=== PATIENT | female | born 2000 ===

== ENCOUNTER 2021-06-04 02:54 | Emergency (ER) | payer MEDICAID, SELFPAY ==
--- NOTE | ~2021-06-04 | XR_ITS ---
EXAMINATION: XR CHEST CLINICAL INFORMATION: Shortness of breath COMPARISON: None TECHNIQUE: Frontal view of the chest was obtained. FINDINGS: Cardiac leads overlie the chest. The lungs are well expanded. There is no focal consolidation, edema, or effusion. No pneumothorax. The cardiomediastinal silhouette is within normal limits. No acute osseous abnormality. XR/XR chest 1V IMPRESSION: Clear lungs.
[2021-06-04 03:11] VITALS: BP 155/100; PULSE 105; RESP 22; TEMP 36.3; O2SAT 92; BMI 29.2
[2021-06-04] MEDS: Albuterol Sulfate (0.083%) 2.5 MG/3 ML VIAL.NEB 7.5 MG INHALE (05:08)
[2021-06-04] MEDS: Albuterol/Iprat 2.5/0.5MG 3 ML AMPUL.NEB INHALE (05:09)
[2021-06-04 05:11] VITALS: BP 124/80; PULSE 105; PULSE 106; RESP 16; RESP 20; O2SAT 95
[2021-06-04 05:31] LABS: COVID-19 Test Negative (Negative); IDNOW Serial# 9DD0AD1C
--- NOTE | 2021-06-04 05:51 | ED_ITS ---
HPI - SOB/Dyspnea General Chief Complaint: Dyspnea Stated Complaint: SoB, cannot breathe Time Seen by Provider: 06/04/21 05:02 Source: patient Mode of arrival: ambulatory Limitations: no limitations History of Present Illness HPI Narrative: Patient not vaccinated against COVID with history of asthma been sick for last 1 week using inhaler and nebulizing treatment at home without much relief coughing with mucopurulent expectoration no fever no chills no other family member sick patient was saturating 92% at room air on arrival Related Data Previous Rx's Medication Instructions Recorded albuterol sulfate 2.5 mg (3 mL) INHALATION Q4-6H PRN 06/04/21 #90 ml albuterol sulfate 90 mcg/actuation 2 puff INHALATION Q4-6H PRN #8.5 g 06/04/21 aerosol inhaler (ProAir HFA) prednisone 20 mg tablet 40 mg PO DAILY #10 tab 06/04/21 Allergies Allergy/AdvReac Type Severity Reaction Status Date / Time No Known Allergies Allergy Unverified 03/02/20 17:11 Review of Systems Review of Systems: Yes all other systems are reviewed and are negative [facility] Social History Social History Advance Directives: No Advance Directives Information Provided: Yes Physical Exam Vital Signs: Vital Signs: Last Vital Signs Temp 97.4 F 06/04/21 03:11 Pulse 105 H 06/04/21 05:11 Resp 16 06/04/21 05:11 BP 124/80 06/04/21 05:11 Pulse Ox 95 06/04/21 05:11 BMI result Body Mass Index 29.2 Appearance: Alert. Oriented X3. No acute distress. Eyes: No pallor ENT: Pharynx normal. Oral Mucosa moist Neck: Normal inspection. Neck supple. CVS: Normal heart rate and rhythm. Pulses normal. Respiratory: Moderate respiratory distress. Equal air entry bilateral, bilateral wheezing and rhonchi no rales using accessory respiratory muscles Abdomen: Soft and nontender. Skin: Skin warm and dry. Normal skin color. Normal skin turgor. Extremities: No lower extremity edema. No calf tenderness Neuro: Oriented X 3. MDM - SOB/Dyspnea MDM Narrative Medical decision making narrative: Patient with asthma received continues treatment steroids saturating 97% at room air will give another treatment and discharge patient home. Chest x-ray negative COVID negative Lab Data Attestation: I reviewed the patient's lab results. Result diagrams: 06/04/21 Unknown 06/04/21 Unknown Labs: Lab Results 06/04/21 06/04/21 06/04/21 Range/Units 05:11 Unknown Unknown WBC 9.6 (4.8-10.8) X10*3/uL RBC 4.75 (4.20-5.50) X10*6/uL Hgb 14.6 (12.0-16.0) g/dl Hct 42.3 (37.0-47.0) % MCV 89.1 (80.0-98.0) fL MCH 30.7 (27.0-33.0) pg MCHC 34.5 (31.0-35.0) g/dl RDW 11.8 (11.0-16.0) % Plt Count 322 (160-400) X10*3/uL MPV 8.5 L (9.4-12.3) fL Immature Gran % (Auto) 0.3 (0.0-0.4) % Neut % (Auto) 62.7 (45-73) % Lymph % (Auto) 20.2 (20-40) % [place] % (Auto) 9.1 (2-11) % Eos % (Auto) 7.4 H (0-4) % Baso % (Auto) 0.3 (0-2) % Lymph # (Auto) 1.9 (1.2-4.9) X10*3/uL [place] # (Auto) 0.9 (0.1-1.2) X10*3/uL Eos # (Auto) 0.7 H (0.0-0.4) X10*3/uL Baso # (Auto) 0.0 (0.0-0.2) X10*3/uL Abs Immat Gran (auto) 0.03 (0.00-0.03) X10*3/uL Absolute Neuts (auto) 6.0 (2.0-8.3) x10*3/uL Absolute Nucleated RBC 0.000 (0.0-0.012) X10*3/uL Nucleated RBC % (auto) 0.0 (0.0-0.2) /100WBC Sodium 140 (135-145) mmol/L Potassium 4.0 (3.3-5.1) mmol/L Chloride 106 (96-108) mmol/L Carbon Dioxide 24 (22-29) mmol/L Anion Gap 14 (12-20) BUN 6 L (9-16) mg/dL Creatinine 0.67 (0.5-1.4) mg/dL Estim Creat Clear Calc 116.2 Estimated GFR > 60 Random Glucose 104 (60-115) mg/dL Calcium 9.8 (8.4-10.2) mg/dL COVID-19 (IMELDA) Negative (Negative) COVID-19 Clin Com See Note Discharge Plan Discharge Clinical Impression: Asthma with exacerbation Qualifiers: Asthma severity: moderate Asthma persistence: persistent Qualified Code(s): J45.41 - Moderate persistent asthma with (acute) exacerbation Patient Disposition: Home, Self-Care Instructions: Asthma (ED) Additional Instructions: Continue to use nebulizing treatment/inhaler every 4-6 hours prednisone as advised Follow with PCP if not better Prescriptions: New prednisone 20 mg tablet 40 mg PO DAILY Qty: 10 RF: 0 albuterol sulfate [ProAir HFA] 90 mcg/actuation HFA aerosol inhaler 2 puff inhalation Q4-6H PRN (Reason: Wheezing) Qty: 8.5 RF: 0 albuterol sulfate 2.5 mg /3 mL (0.083 %) solution for nebulization 2.5 mg inhalation Q4-6H PRN (Reason: shortness of breath or wheezing) Qty: 90 RF: 0
[2021-06-04 06:11] LABS: Basophils Percent Auto 0.3 % (0-2); Eosinophils Absolute Auto 0.7 X10*3/uL (0.0-0.4); Eosinophils Percent Auto 7.4 % (0-4); Hematocrit 42.3 % (37.0-47.0); Hemoglobin 14.6 g/dl (12.0-16.0); Imm Gran Abs Auto 0.03 X10*3/uL (0.00-0.03); Imm Gran Pct Auto 0.3 % (0.0-0.4); Lymphocytes Absolute Auto 1.9 X10*3/uL (1.2-4.9); Lymphocytes Percent Auto 20.2 % (20-40); MANUAL DIFF FLAG NO; Mean Corpuscular HGB Conc 34.5 g/dl (31.0-35.0); Mean Corpuscular Hemoglobin 30.7 pg (27.0-33.0); Mean Corpuscular Volume 89.1 fL (80.0-98.0); Mean Platelet Volume 8.5 fL (9.4-12.3); Monocytes Absolute Auto 0.9 X10*3/uL (0.1-1.2); Monocytes Percent Auto 9.1 % (2-11); Neutrophils Percent Auto 62.7 % (45-73); Platelet Count 322 X10*3/uL (160-400); Red Blood Count 4.75 X10*6/uL (4.20-5.50); Red Cell Distribution Width 11.8 % (11.0-16.0); White Blood Count 9.6 X10*3/uL (4.8-10.8)
[2021-06-04] MEDS: dexAMETHasone sod phosphate 10 MG/ML VIAL IVPUSH (06:15)
[2021-06-04] MEDS: Magnesium Sulfate/H2O 2 GM/50 ML PIGGYBACK IV (06:15)
[2021-06-04 06:29] LABS: Anion Gap 14 (12-20); Blood Urea Nitrogen 6 mg/dL (9-16); Calcium 9.8 mg/dL (8.4-10.2); Carbon Dioxide 24 mmol/L (22-29); Chloride 106 mmol/L (96-108); Creatinine Clr Calc Pharmacy 116.2; Estimated Glomerular Filt Rate > 60; Glucose Random 104 mg/dL (60-115); Sodium 140 mmol/L (135-145)
[2021-06-04] MEDS: Albuterol Sulfate (0.083%) 2.5 MG/3 ML VIAL.NEB 5 MG INHALE (07:24)
[2021-06-04 07:27] VITALS: PULSE 102; RESP 16; O2SAT 97
[2021-06-04 07:46] VITALS: BP 118/84; PULSE 109; RESP 18; TEMP 36.7; O2SAT 94
== END 2021-06-04 08:04 | disposition home or self-care (01) ==
PROVIDERS: Emergency Provider Internal Medicine
DX: J45.41 Moderate persistent asthma with (acute) exacerbation (principal); Z20.822 Contact with and (suspected) exposure to COVID-19; F17.200 Nicotine dependence, unspecified, uncomplicated
CPT/HCPCS: 36415; 71045; 80048; 85025; 87635; 94640; 94644; 96365; 96375; 99284; 99285; J1100; J3475

== ENCOUNTER 2021-06-05 04:00 | Inpatient (IN) | payer MEDICAID, SELFPAY ==
[2021-06-05] VITALS (10 sets, daily range): BP systolic 122; BP diastolic 89; PULSE 86–119; RESP 18–28; TEMP 36.9; O2SAT 85–98; BMI 29.2
--- NOTE | ~2021-06-05 | XR_ITS ---
EXAMINATION: XR CHEST CLINICAL INFORMATION: Dyspnea COMPARISON: Previous chest x-ray from yesterday TECHNIQUE: Frontal view of the chest was obtained. FINDINGS: The cardiac and mediastinal contours are stable. The lungs are well inflated. There is question of increased central bronchial markings/bronchial wall thickening. No evidence of a lobar pneumonia is seen. There is no pleural effusion or pneumothorax. Bony structures are normal. XR/XR chest 1V IMPRESSION: Well-inflated lungs and question increased central bronchial markings/bronchial wall thickening. No evidence of a lobar pneumonia.
[2021-06-05 05:17] LABS: COVID-19 Test Positive (Negative)
--- NOTE | 2021-06-05 06:35 | ED_ITS ---
HPI - SOB/Dyspnea General Chief Complaint: Dyspnea Stated Complaint: Asthma Time Seen by Provider: 06/05/21 06:34 Source: patient and old records reviewed Mode of arrival: ambulatory Limitations: no limitations History of Present Illness MD elicited complaint: shortness of breath and asthma attack Pertinent past history: other (COVID exposure not vaccinated here last night given IV steroids around 2am neg CXR neg COVID sent home) Onset (ago): week(s) (1) Timing: progressively worsening Severity: moderate Exacerbating factors: exertion and coughing Relieving factors: rest and bronchodilators Associated symptoms: cough Treatment prior to arrival: bronchodilator Related Data Home Medications Medication Instructions Recorded Confirmed ascorbic acid (vitamin C) 500 mg 500 mg PO DAILY 06/05/21 06/05/21 tablet (Vitamin C) elderberry fruit 200 mg capsule 200 mg PO DAILY 06/05/21 06/05/21 Previous Rx's Medication Instructions Recorded albuterol sulfate 2.5 mg (3 mL) INHALATION Q4-6H PRN 06/04/21 #90 ml albuterol sulfate 90 mcg/actuation 2 puff INHALATION Q4-6H PRN #8.5 g 06/04/21 aerosol inhaler (ProAir HFA) Allergies Allergy/AdvReac Type Severity Reaction Status Date / Time No Known Allergies Allergy Unverified 03/02/20 17:11 Review of Systems Review of Systems: Constitutional : No Fever, No Chills ENT/Mouth : No Hoarseness, No sore throat, No Rhinorrhea Eyes: No Redness, No Discharge, No Vision Changes Cardiovascular : No Chest Pain, positive SOB, positive Dyspnea on Exertion, No Edema Respiratory : positive Cough, No Sputum, positive Wheezing, Gastrointestinal : No Nausea, No Vomiting, No Diarrhea, No abdominal Pain Genitourinary : No Dysuria, No Hematuria Musculoskeletal : No joint pain, No Myalgias Skin : No rash Neuro : No Weakness, No Numbness, No Headache Psych : No anxiety, depression Heme/Lymph: No Bruising, No Bleeding Endocrine : No Polyuria, No Polydipsia All other systems reviewed and are negative PMFSH Past Medical History Medical History (Updated 06/05/21 @ 11:29 by Brennen Mcdermott MD) Asthma Surgical History (Updated 06/05/21 @ 11:24 by Brennen Mcdermott MD) No pertinent past surgical history Social History Social History (Updated 06/05/21 @ 11:24 by Brennen Mcdermott MD) Alcohol intake: never Patient Tobacco Use Status: Current someday Tobacco user Use of substances other than those prescribed or required for medical reasons: No Advance Directives: No Advance Directives Information Provided: No Physical Exam Vital Signs: Vital Signs: Last Vital Signs Temp 98.5 F 06/05/21 04:16 Pulse 86 06/05/21 12:13 Resp 18 06/05/21 12:13 BP 122/89 06/05/21 04:16 Pulse Ox 95 06/05/21 12:18 BMI result Body Mass Index 29.2 Appearance: Alert. Oriented X3. Mild acute distress. Eyes: Pupils equal, round and reactive to light. ENT: Pharynx normal. Neck: Normal inspection. Neck supple. CVS: Normal heart rate and rhythm. Pulses normal. Respiratory: Mild respiratory distress - retractions and tachypnea. Breath sounds diffuse wheezing noted - marched in place 93% on RA while walking in room Abdomen: Soft and nontender. Skin: Skin warm and dry. Normal skin color. Normal skin turgor. Extremities: No lower extremity edema. No calf ttp Neuro: Oriented X 3. No motor deficit. No sensory deficit. Course Course Course Narrative: ambulatory trial patient desaturated to 85% responded to 3L NC - up to 94% added on additional labs, planned admit for COVID asthma hypoxia MDM - SOB/Dyspnea MDM Narrative Medical decision making narrative: 20 yo female here with c/o 1 week of asthma attack she is not vaccinated had COVID exposure given IV steroids at 2am at this time will repeat labs, CXR, she is now COVID +, 5mg neb will obtain walking repeat O2 sat for the patient, dispo per results and O2 sat Lab Data Result diagrams: 06/05/21 08:03 06/05/21 08:03 Labs: Lab Results 06/05/21 06/05/21 06/05/21 Range/Units 05:02 08:03 08:03 WBC 11.7 H (4.8-10.8) X10*3/uL RBC 4.98 (4.20-5.50) X10*6/uL Hgb 15.0 (12.0-16.0) g/dl Hct 44.4 (37.0-47.0) % MCV 89.2 (80.0-98.0) fL MCH 30.1 (27.0-33.0) pg MCHC 33.8 (31.0-35.0) g/dl RDW 12.1 (11.0-16.0) % Plt Count 363 (160-400) X10*3/uL MPV 8.6 L (9.4-12.3) fL Immature Gran % (Auto) 0.3 (0.0-0.4) % Neut % (Auto) 67.4 (45-73) % Lymph % (Auto) 21.7 (20-40) % [place] % (Auto) 9.5 (2-11) % Eos % (Auto) 0.9 (0-4) % Baso % (Auto) 0.2 (0-2) % Lymph # (Auto) 2.5 (1.2-4.9) X10*3/uL [place] # (Auto) 1.1 (0.1-1.2) X10*3/uL Eos # (Auto) 0.1 (0.0-0.4) X10*3/uL Baso # (Auto) 0.0 (0.0-0.2) X10*3/uL Abs Immat Gran (auto) 0.04 H (0.00-0.03) X10*3/uL Absolute Neuts (auto) 7.9 (2.0-8.3) x10*3/uL Absolute Nucleated RBC 0.000 (0.0-0.012) X10*3/uL Nucleated RBC % (auto) 0.0 (0.0-0.2) /100WBC D-Dimer High Sensitivty NG/ML Sodium 142 (135-145) mmol/L Potassium 4.1 (3.3-5.1) mmol/L Chloride 106 (96-108) mmol/L Carbon Dioxide 26 (22-29) mmol/L Anion Gap 14 (12-20) BUN 8 L (9-16) mg/dL Creatinine 0.66 (0.5-1.4) mg/dL Estim Creat Clear Calc 118.0 Estimated GFR > 60 Random Glucose 91 (60-115) mg/dL Lactic Acid (0.5-2.0) mmol/L Calcium 9.4 (8.4-10.2) mg/dL Magnesium 2.0 (1.6-2.6) mg/dL Ferritin 36 (10-122) ng/mL Total Bilirubin 0.4 (0.0-1.0) mg/dL Direct Bilirubin 0.2 (0.0-0.5) mg/dL AST 14 (5-31) U/L ALT 13 (0-31) U/L Alkaline Phosphatase 83 (39-117) U/L Lactate Dehydrogenase 173 (122-220) U/L C-Reactive Protein 3.05 H (< or = 0.50) mg/dL Total Protein 7.7 (6.5-8.0) g/dL Albumin 4.5 (3.5-5.0) g/dL Procalcitonin ng/mL Beta HCG, Quant mIU/mL COVID-19 (IMELDA) Positive A (Negative) COVID-19 Clin Com See Note 06/05/21 06/05/21 06/05/21 Range/Units 08:03 08:30 08:30 WBC (4.8-10.8) X10*3/uL RBC (4.20-5.50) X10*6/uL Hgb (12.0-16.0) g/dl Hct (37.0-47.0) % MCV (80.0-98.0) fL MCH (27.0-33.0) pg MCHC (31.0-35.0) g/dl RDW (11.0-16.0) % Plt Count (160-400) X10*3/uL MPV (9.4-12.3) fL Immature Gran % (Auto) (0.0-0.4) % Neut % (Auto) (45-73) % Lymph % (Auto) (20-40) % [place] % (Auto) (2-11) % Eos % (Auto) (0-4) % Baso % (Auto) (0-2) % Lymph # (Auto) (1.2-4.9) X10*3/uL [place] # (Auto) (0.1-1.2) X10*3/uL Eos # (Auto) (0.0-0.4) X10*3/uL Baso # (Auto) (0.0-0.2) X10*3/uL Abs Immat Gran (auto) (0.00-0.03) X10*3/uL Absolute Neuts (auto) (2.0-8.3) x10*3/uL Absolute Nucleated RBC (0.0-0.012) X10*3/uL Nucleated RBC % (auto) (0.0-0.2) /100WBC D-Dimer High Sensitivty < 150 NG/ML Sodium (135-145) mmol/L Potassium (3.3-5.1) mmol/L Chloride (96-108) mmol/L Carbon Dioxide (22-29) mmol/L Anion Gap (12-20) BUN (9-16) mg/dL Creatinine (0.5-1.4) mg/dL Estim Creat Clear Calc Estimated GFR Random Glucose (60-115) mg/dL Lactic Acid 1.2 (0.5-2.0) mmol/L Calcium (8.4-10.2) mg/dL Magnesium (1.6-2.6) mg/dL Ferritin (10-122) ng/mL Total Bilirubin (0.0-1.0) mg/dL Direct Bilirubin (0.0-0.5) mg/dL AST (5-31) U/L ALT (0-31) U/L Alkaline Phosphatase (39-117) U/L Lactate Dehydrogenase (122-220) U/L C-Reactive Protein (< or = 0.50) mg/dL Total Protein (6.5-8.0) g/dL Albumin (3.5-5.0) g/dL Procalcitonin < 0.02 ng/mL Beta HCG, Quant mIU/mL COVID-19 (IMELDA) (Negative) COVID-19 Clin Com 06/05/21 Range/Units 08:30 WBC (4.8-10.8) X10*3/uL RBC (4.20-5.50) X10*6/uL Hgb (12.0-16.0) g/dl Hct (37.0-47.0) % MCV (80.0-98.0) fL MCH (27.0-33.0) pg MCHC (31.0-35.0) g/dl RDW (11.0-16.0) % Plt Count (160-400) X10*3/uL MPV (9.4-12.3) fL Immature Gran % (Auto) (0.0-0.4) % Neut % (Auto) (45-73) % Lymph % (Auto) (20-40) % [place] % (Auto) (2-11) % Eos % (Auto) (0-4) % Baso % (Auto) (0-2) % Lymph # (Auto) (1.2-4.9) X10*3/uL [place] # (Auto) (0.1-1.2) X10*3/uL Eos # (Auto) (0.0-0.4) X10*3/uL Baso # (Auto) (0.0-0.2) X10*3/uL Abs Immat Gran (auto) (0.00-0.03) X10*3/uL Absolute Neuts (auto) (2.0-8.3) x10*3/uL Absolute Nucleated RBC (0.0-0.012) X10*3/uL Nucleated RBC % (auto) (0.0-0.2) /100WBC D-Dimer High Sensitivty NG/ML Sodium (135-145) mmol/L Potassium (3.3-5.1) mmol/L Chloride (96-108) mmol/L Carbon Dioxide (22-29) mmol/L Anion Gap (12-20) BUN (9-16) mg/dL Creatinine (0.5-1.4) mg/dL Estim Creat Clear Calc Estimated GFR Random Glucose (60-115) mg/dL Lactic Acid (0.5-2.0) mmol/L Calcium (8.4-10.2) mg/dL Magnesium (1.6-2.6) mg/dL Ferritin (10-122) ng/mL Total Bilirubin (0.0-1.0) mg/dL Direct Bilirubin (0.0-0.5) mg/dL AST (5-31) U/L ALT (0-31) U/L Alkaline Phosphatase (39-117) U/L Lactate Dehydrogenase (122-220) U/L C-Reactive Protein (< or = 0.50) mg/dL Total Protein (6.5-8.0) g/dL Albumin (3.5-5.0) g/dL Procalcitonin ng/mL Beta HCG, Quant < 2 mIU/mL COVID-19 (IMELDA) (Negative) COVID-19 Clin Com ECG Data Attestation: I personally reviewed and interpreted this ECG as follows: ECG interpretation date: 06/05/21 ECG interpretation time: 09:19 Interpretation: Rate: 87 Rhythm: NSR [place]: normal Normal P waves. Normal JANET. Normal QRS complex. ST T wave : normal no JACKIE qTC: normal prior studies: no acute ischemia The study has been interpreted contemporaneously by me. . Critical Care Time Critical Care Time Critical Care Time: Yes Total Critical Care Time: 45 Attestation: hour long neb, supplemental O2 for hypoxia and walking sat of 85%, repeat nebs, admit to hospital I attest to this time spent taking care of the patient Discharge Plan Discharge Clinical Impression: COVID-19, Hypoxia Asthma with exacerbation Qualifiers: Asthma severity: moderate Asthma persistence: persistent Qualified Code(s): J45.41 - Moderate persistent asthma with (acute) exacerbation Patient Disposition: Admitted As Inpatient
[2021-06-05] MEDS: Albuterol Sulfate (0.083%) 2.5 MG/3 ML VIAL.NEB 5 MG INHALE (06:54)
--- NOTE | 2021-06-05 08:11 | ECG_ITS ---
Test Reason : sob Blood Pressure : / mmHG Vent. Rate : 087 BPM Atrial Rate : 087 BPM P-R Int : 122 ms QRS Dur : 090 ms QT Int : 366 ms P-R-T Axes : 074 087 047 degrees QTc Int : 440 ms Normal sinus rhythm with sinus arrhythmia Normal ECG When compared to the previous EKG of 2005, antierior T inversion less prominent Referred By: Andria Mcknight Electronically Signed By:EDNA SAWANT
[2021-06-05 08:15] LABS: MANUAL DIFF FLAG NO
[2021-06-05 08:20] LABS: Basophils Percent Auto 0.2 % (0-2); Eosinophils Absolute Auto 0.1 X10*3/uL (0.0-0.4); Eosinophils Percent Auto 0.9 % (0-4); Hematocrit 44.4 % (37.0-47.0); Imm Gran Abs Auto 0.04 X10*3/uL (0.00-0.03); Imm Gran Pct Auto 0.3 % (0.0-0.4); Lymphocytes Absolute Auto 2.5 X10*3/uL (1.2-4.9); Lymphocytes Percent Auto 21.7 % (20-40); Mean Corpuscular HGB Conc 33.8 g/dl (31.0-35.0); Mean Corpuscular Hemoglobin 30.1 pg (27.0-33.0); Mean Corpuscular Volume 89.2 fL (80.0-98.0); Mean Platelet Volume 8.6 fL (9.4-12.3); Monocytes Absolute Auto 1.1 X10*3/uL (0.1-1.2); Monocytes Percent Auto 9.5 % (2-11); Neutrophils Absolute Auto 7.9 x10*3/uL (2.0-8.3); Neutrophils Percent Auto 67.4 % (45-73); Platelet Count 363 X10*3/uL (160-400); Red Blood Count 4.98 X10*6/uL (4.20-5.50); Red Cell Distribution Width 12.1 % (11.0-16.0); White Blood Count 11.7 X10*3/uL (4.8-10.8)
[2021-06-05 08:29] LABS: Alanine Aminotransferase 13 U/L (0-31); Albumin Level 4.5 g/dL (3.5-5.0); Alkaline Phosphatase 83 U/L (39-117); Anion Gap 14 (12-20); Aspartate Amino Transferase 14 U/L (5-31); Bilirubin Direct 0.2 mg/dL (0.0-0.5); Bilirubin Total 0.4 mg/dL (0.0-1.0); Blood Urea Nitrogen 8 mg/dL (9-16); Calcium 9.4 mg/dL (8.4-10.2); Carbon Dioxide 26 mmol/L (22-29); Chloride 106 mmol/L (96-108); Estimated Glomerular Filt Rate > 60; Glucose Random 91 mg/dL (60-115); Lactate Dehydrogenase 173 U/L (122-220); Potassium 4.1 mmol/L (3.3-5.1); Sodium 142 mmol/L (135-145); Total Protein 7.7 g/dL (6.5-8.0)
[2021-06-05] MEDS: Albuterol Sulfate (0.083%) 2.5 MG/3 ML VIAL.NEB INHALE ×4 (08:33→19:36)
[2021-06-05 08:49] LABS: Ferritin 36 ng/mL (10-122)
[2021-06-05 08:53] LABS: Lactic Acid 1.2 mmol/L (0.5-2.0)
[2021-06-05 09:03] LABS: HCG Quantitative < 2 mIU/mL
[2021-06-05 09:12] LABS: D Dimer High Sensitivity < 150 NG/ML
[2021-06-05] MEDS: dexAMETHasone sod phosphate 4 MG/ML VIAL 6 MG IVPUSH (09:16)
--- NOTE | 2021-06-05 10:58 | P.HPHOSP_ITS ---
History of Present Illness Date of Service: 06/05/21 Chief Complaint: shortness of breath This is a 20 yo F with a PMH of asthma (suspected mild intermittent) on PRN albuterol INH / Nebs at home who presents to the hospital with complaints of shortness of breath which has been on going for the last 7 days. She reports that in the interim (not exactly sure how many days ago) she had a exposure to a known COVID positive person. She reports coughing for about 3-4 days. She denies any fevers or chills. She initially presented to [facility] on 06/04/21 where she tested for negative and was not hypoxic. She now presents 24 hours later and COVID testing is positive. She was initially not hypoxic, but saturations drop ped to 85 and so she will now be admitted for further treatment. Review of Systems Review of Systems: negative except HPI [facility] Medical History (Updated 06/05/21 @ 11:29 by Brennen Mcdermott MD) Asthma Pertinent family history: denies any significant H Surgical History (Updated 06/05/21 @ 11:24 by Brennen Mcdermott MD) No pertinent past surgical history Social History (Updated 06/05/21 @ 11:24 by Brennen Mcdermott MD) Alcohol intake: never Patient Tobacco Use Status: Current someday Tobacco user Use of substances other than those prescribed or required for medical reasons: No Advance Directives: No Advance Directives Information Provided: No Meds Allergies Allergy/AdvReac Type Severity Reaction Status Date / Time No Known Allergies Allergy Unverified 03/02/20 17:11 Active Medications: Current Medications Acetaminophen (Acetaminophen 325 Mg Tablet) 650 mg PO Q6H PRN PRN Reason: Pain, Mild (Pain Scale 1-3) Albuterol Sulfate (Albuterol Sulfate (0.083%) 2.5 Mg/3 Ml Vial.Neb) 2.5 mg INHALE RQ4H WHILE AWAKE JANETTE Enoxaparin Sodium (Enoxaparin Sodium 40 Mg/0.4 Ml Syringe) 40 mg SUBCUT Q24H JANETTE Methylprednisolone Sodium Succinate (Methylprednisolone Sod Succ 40 Mg/Ml Vial) 40 mg IVPUSH Q12H PENDING SALE TO [facility] Pharmacy Consult (Consult Rx Perform Med Rec) 1 each MISCELLANE ONCE PRN PRN Reason: Consult order Sodium Chloride (0.9 % Sodium Chloride Flush 3 Ml Syringe) 3 ml IVFLUSH QSHIFT PENDING SALE TO [facility] Home Medications Medication Instructions Recorded Confirmed Last Taken Type ascorbic acid (vitamin C) 500 mg 500 mg PO DAILY 06/05/21 06/05/21 Unknown History tablet (Vitamin C) elderberry fruit 200 mg capsule 200 mg PO DAILY 06/05/21 06/05/21 Unknown History Physical Exam Vital Signs and Narrative: Vital Signs: Last Vital Signs Temp 98.5 F 06/05/21 04:16 Pulse 108 H 06/05/21 08:35 Resp 20 06/05/21 08:35 BP 122/89 06/05/21 04:16 Pulse Ox 85 L 06/05/21 08:15 BMI result Body Mass Index 29.2 Const: Other: Constitutional - Awake and Alert, No apparent distress Eyes - PERRLA, EOMI Cardiovascular - S1S2, RRR, No edema Respiratory - diffuse wheezing with poor air entry bilaterally Gastrointestinal - NT / ND; +BS; No rebound or guarding - No CVA tenderness Extremities - no calf tenderness bilaterally, no swelling Musculoskeletal - Normal inspection, normal ROM Skin - Warm/Dry Neurological - Alert & oriented x3, No focal deficit Psychological - Appropriate affect Results Labs CBC and Chem 7: 06/05/21 08:03 06/05/21 08:03 Labs: Laboratory Results - last 24 hr 06/05/21 06/05/21 06/05/21 05:02 08:03 08:03 MCV 89.2 MCH 30.1 MCHC 33.8 RDW 12.1 Plt Count 363 MPV 8.6 L Immature Gran % (Auto) 0.3 Neut % (Auto) 67.4 Lymph % (Auto) 21.7 [place] % (Auto) 9.5 Eos % (Auto) 0.9 Baso % (Auto) 0.2 Lymph # (Auto) 2.5 [place] # (Auto) 1.1 Eos # (Auto) 0.1 Baso # (Auto) 0.0 Abs Immat Gran (auto) 0.04 H Absolute Neuts (auto) 7.9 Absolute Nucleated RBC 0.000 Nucleated RBC % (auto) 0.0 D-Dimer High Sensitivty Anion Gap 14 Estim Creat Clear Calc 118.0 Estimated GFR > 60 Random Glucose 91 Lactic Acid Calcium 9.4 Magnesium 2.0 Ferritin 36 Total Bilirubin 0.4 Direct Bilirubin 0.2 AST 14 ALT 13 Alkaline Phosphatase 83 Lactate Dehydrogenase 173 Total Protein 7.7 Albumin 4.5 Beta HCG, Quant COVID-19 (IMELDA) Positive A COVID-19 Clin Com See Note 06/05/21 06/05/21 06/05/21 08:30 08:30 08:30 MCV MCH MCHC RDW Plt Count MPV Immature Gran % (Auto) Neut % (Auto) Lymph % (Auto) [place] % (Auto) Eos % (Auto) Baso % (Auto) Lymph # (Auto) [place] # (Auto) Eos # (Auto) Baso # (Auto) Abs Immat Gran (auto) Absolute Neuts (auto) Absolute Nucleated RBC Nucleated RBC % (auto) D-Dimer High Sensitivty < 150 Anion Gap Estim Creat Clear Calc Estimated GFR Random Glucose Lactic Acid 1.2 Calcium Magnesium Ferritin Total Bilirubin Direct Bilirubin AST ALT Alkaline Phosphatase Lactate Dehydrogenase Total Protein Albumin Beta HCG, Quant < 2 COVID-19 (IMELDA) COVID-19 Clin Com Imaging Radiologist's Impressions: Impressions Chest X-Ray 06/05/21 08:16 IMPRESSION: Well-inflated lungs and question increased central bronchial markings/bronchial wall thickening. No evidence of a lobar pneumonia. Assessment and Plan (1) COVID-19: Status: Acute (2) Acute respiratory failure with hypoxia: Status: Acute (3) Asthma with exacerbation: Qualifiers: Asthma persistence: persistent Asthma severity: moderate Qualified Code(s): J45.41 - Moderate persistent asthma with (acute) exacerbation Status: Acute This is a 20 yo unvaccinated female with a PMH of asthma - not on controller meds, who presents to the hospital with complaints of shortness of breath for about 1 week. She has also had an exposure to a known COVID+ person, within the last week as well. She is found to be hypoxic and now will be admitted for further treatment. 1. Acute Respiratory failure with hypoxia due to asthma exacerbation and COVID19 CXR without any evidence of pneumonia, inflammatory biomarkers are not impressive (with CRP being abnormal) Continue supplemental oxygen to maintain saturation 90-92 IV solu-medrol 40mg BID Scheduled albuterol nebs Symptoms less than 7 days, will involve ID for possible remdesivir Trend labs Full Code DVT pptx, Lovenox Quality Stroke Does the patient have a stroke diagnosis?: No VTE Prior VTE?: No VTE Risk Level:: Medical - moderate - high VTE Device Contraindication: Treatment Not Indicated VTE Drug Contraindication: N/A - Med Ordered
--- NOTE | 2021-06-05 11:16 | PHA.MEDREC ---
Pharmacy Consult ? Medication Reconciliation Pharmacy has completed the medication reconciliation. There are no remarkable issues. Patient reports she need a refill on Flovent. Mignon Grayson, KoryD
[2021-06-05 11:21] LABS: C Reactive Protein 3.05 mg/dL (< or = 0.50)
[2021-06-05 11:57] LABS: Procalcitonin < 0.02 ng/mL
[2021-06-05] MEDS: methylPREDNISolone Sod Succ 40 MG/ML VIAL IVPUSH ×2 (11:59→22:53)
[2021-06-05] MEDS: Enoxaparin Sodium 40 MG/0.4 ML SYRINGE SUBCUT (11:59)
[2021-06-05] MEDS: Remdesivir 200 MG in 0.9 % Sodium Chloride 210 ML 105 MG IV (15:49)
--- NOTE | 2021-06-05 17:38 | PC.NURSE ---
[facility] number ([email or web address])
--- NOTE | 2021-06-05 17:58 | MHC.CM.PN ---
CM met with admitted patient with bed assignment pending. No IMM necessary. A&Ox3. Covid positive. Pt is not vaccinated. Pt has asthma, pt states well controlled. PCP is at [facility], pt cannot remember the name. No HCP on file. Education provided. Pt declines at this time. Pt lives at home with her mother. Has no DME or services. D/C plan is home without services. Pt may require RT assessment prior to D/C. Pt states her mother will provide transportation home. CM to follow for d/c needs.
[2021-06-05] MEDS: Acetaminophen 325 MG TABLET 650 MG PO (20:34)
--- NOTE | 2021-06-05 23:37 | PC.NURSE ---
Report given to [facility] RN. Plan for transport to floor.
[2021-06-06] VITALS (11 sets, daily range): BP systolic 118–144; BP diastolic 70–81; PULSE 62–127; RESP 18–20; TEMP 36.3–37.3; O2SAT 90–98
[2021-06-06] MEDS: 0.9 % Sodium Chloride Flush 3 ML SYRINGE IVFLUSH ×4 (00:42→23:53)
[2021-06-06] MEDS: Albuterol Sulfate (0.083%) 2.5 MG/3 ML VIAL.NEB INHALE ×4 (06:51→21:06)
[2021-06-06] MEDS: Ascorbic Acid 500 MG TABLET PO (09:07)
--- NOTE | 2021-06-06 11:31 | W.PM.IDCN ---
History of Present Illness Data of Consult Service Date: 06/05/21 Requesting physician: Vikram Macdonald Primary Care Provider: [facility] Reason for consult: COVID She presents with cough and shortness of breath for a week She has oxygen saturation in 80s Her LFT unremarkable Review of Systems Review of Systems: Yes all other systems are reviewed and are negative [facility] Past Medical History Medical History Asthma Surgical History Surgical History No pertinent past surgical history Social History Social History Household Members: Other Household Members Other:: Home with mother Housing: House Do you presently have visiting nurse or other home services: No Unable to assess alcohol history related to: Unknown Alcohol intake: never Patient Tobacco Use Status: Current someday Tobacco user service: No Current occupational status: unemployed Meds Allergies Allergy/AdvReac Type Severity Reaction Status Date / Time No Known Allergies Allergy Unverified 03/02/20 17:11 Active Medications: Current Medications Acetaminophen (Acetaminophen 325 Mg Tablet) 650 mg PO Q6H PRN PRN Reason: Pain, Mild (Pain Scale 1-3) Last Admin: 06/05/21 20:34 Dose: 650 mg Documented by: Albuterol Sulfate (Albuterol Sulfate (0.083%) 2.5 Mg/3 Ml Vial.Neb) 2.5 mg INHALE RQ4H WHILE AWAKE [facility] Last Admin: 06/06/21 10:55 Dose: 2.5 mg Documented by: Ascorbic Acid (Ascorbic Acid 500 Mg Tablet) 500 mg PO DAILY [facility] Last Admin: 06/06/21 09:07 Dose: 500 mg Documented by: Enoxaparin Sodium (Enoxaparin Sodium 40 Mg/0.4 Ml Syringe) 40 mg SUBCUT Q24H [facility] Last Admin: 06/05/21 11:59 Dose: 40 mg Documented by: Remdesivir 100 mg/ Sodium (Chloride) 230 mls @ 115 mls/hr IV Q24H [facility] Stop: 06/09/21 15:59 Methylprednisolone Sodium Succinate (Methylprednisolone Sod Succ 40 Mg/Ml Vial) 40 mg IVPUSH Q12H [facility] Last Admin: 06/05/21 22:53 Dose: 40 mg Documented by: Pharmacy Consult (Consult Rx Perform Med Rec) 1 each MISCELLANE ONCE PRN PRN Reason: Consult order Sodium Chloride (0.9 % Sodium Chloride Flush 3 Ml Syringe) 3 ml IVFLUSH QSHIFT [facility] Last Admin: 06/06/21 09:07 Dose: 3 ml Documented by: Home Medications Medication Instructions Recorded Confirmed Last Taken Type ascorbic acid (vitamin C) 500 mg 500 mg PO DAILY 06/05/21 06/05/21 Unknown History tablet (Vitamin C) elderberry fruit 200 mg capsule 200 mg PO DAILY 06/05/21 06/05/21 Unknown History Physical Exam Vital Signs: Vital Signs: Last Vital Signs Temp 97.7 F 06/06/21 11:10 Pulse 127 H 06/06/21 11:10 Resp 20 06/06/21 11:10 BP 130/75 06/06/21 11:10 Pulse Ox 90 L 06/06/21 11:10 BMI result Body Mass Index 29.2 Const: General: cooperative Eyes: Visual Hamilton: normal visual hamilton by confrontation Resp: Effort & Inspection: able to speak in complete sentences Cardio: Rate: regular rate Rhythm: regular rhythm GI: Palpation (GI): nontender Extrem: General: Yes normal to inspection Results Labs CBC & Chem 7: 06/05/21 08:03 06/05/21 08:03 Microbiology Microbiology Results: Microbiology 06/05/21 08:40 Blood - Venous Blood Culture - Preliminary No growth after 24 hours. 06/05/21 08:30 Blood - Venous Blood Culture - Preliminary No growth after 24 hours. Assessment and Plan (1) Acute respiratory failure with hypoxia: Status: Acute She has high risk with asthma She is within seven days symptoms with normal LFTs (2) Asthma with exacerbation: Qualifiers: Asthma persistence: persistent Asthma severity: moderate Qualified Code(s): J45.41 - Moderate persistent asthma with (acute) exacerbation Status: Acute Would give Remdesivir Dexamethasone Oxygen
--- NOTE | 2021-06-06 11:47 | P.PNIM_ITS ---
Subjective Subjective Date of Service: 06/06/21 Interval History: seen and examined this AM reports she was at the sink washing herself up (without oxygen) for about 4-5 minutes and then became symptomatic -- d/w her the need to ask for help and NOT remove oxygen Review of Systems negative except interval history Physical Exam Vital Signs: Vital Signs: Last Vital Signs Temp 97.7 F 06/06/21 11:10 Pulse 127 H 06/06/21 11:10 Resp 20 06/06/21 11:10 BP 130/75 06/06/21 11:10 Pulse Ox 90 L 06/06/21 11:10 BMI result Body Mass Index 29.2 Const: Other: General - no acute distress, appears comfortable Cardiovascular - regular rate and rhythm, S1-S2 Lungs - diminished breath sounds, no wheezing, no respiratory distress with oxygen Abdomen - soft, nontender, no rebound or guarding Extremities - no edema bilaterally Neuro - awake and alert, no focal deficits Objective Data Active Medications Acetaminophen (Acetaminophen 325 Mg Tablet) 650 mg PO Q6H PRN PRN Reason: Pain, Mild (Pain Scale 1-3) Last Admin: 06/05/21 20:34 Dose: 650 mg Documented by: PREMA Albuterol Sulfate (Albuterol Sulfate (0.083%) 2.5 Mg/3 Ml Vial.Neb) 2.5 mg INHALE RQ4H WHILE AWAKE [facility] Last Admin: 06/06/21 10:55 Dose: 2.5 mg Documented by: ALISHA Ascorbic Acid (Ascorbic Acid 500 Mg Tablet) 500 mg PO DAILY [facility] Last Admin: 06/06/21 09:07 Dose: 500 mg Documented by: GAGANDEEP Enoxaparin Sodium (Enoxaparin Sodium 40 Mg/0.4 Ml Syringe) 40 mg SUBCUT Q24H [facility] Last Admin: 06/05/21 11:59 Dose: 40 mg Documented by: PREMA Remdesivir 100 mg/ Sodium (Chloride) 230 mls @ 115 mls/hr IV Q24H [facility] Stop: 06/09/21 15:59 Methylprednisolone Sodium Succinate (Methylprednisolone Sod Succ 40 Mg/Ml Vial) 40 mg IVPUSH Q12H [facility] Last Admin: 06/05/21 22:53 Dose: 40 mg Documented by: PREMA Pharmacy Consult (Consult Rx Perform Med Rec) 1 each MISCELLANE ONCE PRN PRN Reason: Consult order Sodium Chloride (0.9 % Sodium Chloride Flush 3 Ml Syringe) 3 ml IVFLUSH QSHIFT [facility] Last Admin: 06/06/21 09:07 Dose: 3 ml Documented by: GAGANDEEP Labs CBC & Chem 7: 06/05/21 08:03 06/05/21 08:03 Labs: Laboratory Results - last 24 hr 06/05/21 08:03 Procalcitonin < 0.02 Microbiology Microbiology Results: Microbiology 06/05/21 08:40 Blood Culture - Preliminary Blood - Venous No growth after 24 hours. 06/05/21 08:30 Blood Culture - Preliminary Blood - Venous No growth after 24 hours. Assessment and Plan (1) Acute respiratory failure with hypoxia: Status: Acute (2) COVID-19: Status: Acute (3) Asthma with exacerbation: Status: Acute Assessment and Plan: This is a 20 yo unvaccinated female with a PMH of asthma - not on controller meds, who presents to the hospital with complaints of shortness of breath for about 1 week. She has also had an exposure to a known COVID+ person, within the last week as well. She is found to be hypoxic and now will be admitted for further treatment. 1. Acute Respiratory failure with hypoxia due to asthma exacerbation and COVID19 asthma appears to be improved, she is still requiring oxygen will change solu-medrol to decadron (was giving higher dose of solu-medrol for significant wheezing, which has now improved) ID input appreciated -- remdesivir started day 2/ today continue scheduled nebs check labs tomorrow Full Code DVT pptx, Lovenox Quality Stroke Does the patient have a stroke diagnosis?: No VTE Prior VTE?: No VTE Risk Level:: Medical - moderate - high VTE Device Contraindication: Treatment Not Indicated VTE Drug Contraindication: N/A - Med Ordered
[2021-06-06] MEDS: methylPREDNISolone Sod Succ 40 MG/ML VIAL IVPUSH (12:11)
[2021-06-06] MEDS: Enoxaparin Sodium 40 MG/0.4 ML SYRINGE SUBCUT (12:11)
[2021-06-06] MEDS: Remdesivir 100 MG in 0.9 % Sodium Chloride 230 ML 115 MG IV (14:53)
[2021-06-07] VITALS (7 sets, daily range): BP systolic 119–140; BP diastolic 71–84; PULSE 52–88; RESP 18; TEMP 36.4–37.1; O2SAT 94–98
[2021-06-07 06:29] LABS: Hematocrit 44.9 % (37.0-47.0); Hemoglobin 15.1 g/dl (12.0-16.0); Mean Corpuscular HGB Conc 33.6 g/dl (31.0-35.0); Mean Corpuscular Hemoglobin 30.1 pg (27.0-33.0); Mean Corpuscular Volume 89.4 fL (80.0-98.0); Mean Platelet Volume 8.9 fL (9.4-12.3); Platelet Count 344 X10*3/uL (160-400); Red Blood Count 5.02 X10*6/uL (4.20-5.50); Red Cell Distribution Width 11.8 % (11.0-16.0); White Blood Count 8.1 X10*3/uL (4.8-10.8)
[2021-06-07 06:47] LABS: Alanine Aminotransferase 16 U/L (0-31); Albumin Level 4.2 g/dL (3.5-5.0); Alkaline Phosphatase 73 U/L (39-117); Anion Gap 15 (12-20); Aspartate Amino Transferase 14 U/L (5-31); Bilirubin Direct < 0.2 mg/dL (0.0-0.5); Bilirubin Total 0.3 mg/dL (0.0-1.0); Blood Urea Nitrogen 13 mg/dL (9-16); C Reactive Protein 0.58 mg/dL (< or = 0.50); Calcium 9.8 mg/dL (8.4-10.2); Carbon Dioxide 26 mmol/L (22-29); Chloride 104 mmol/L (96-108); Creatinine Clr Calc Pharmacy 103.8; Estimated Glomerular Filt Rate > 60; Glucose Random 87 mg/dL (60-115); Potassium 4.7 mmol/L (3.3-5.1); Sodium 140 mmol/L (135-145)
[2021-06-07] MEDS: Ascorbic Acid 500 MG TABLET PO (08:05)
[2021-06-07] MEDS: dexAMETHasone sod phosphate 4 MG/ML VIAL 6 MG IVPUSH (08:05)
[2021-06-07] MEDS: 0.9 % Sodium Chloride Flush 3 ML SYRINGE IVFLUSH ×2 (08:06→13:39)
[2021-06-07] MEDS: Albuterol Sulfate (0.083%) 2.5 MG/3 ML VIAL.NEB INHALE ×3 (08:18→15:37)
[2021-06-07] MEDS: Enoxaparin Sodium 40 MG/0.4 ML SYRINGE SUBCUT (11:35)
[2021-06-07] MEDS: Remdesivir 100 MG in 0.9 % Sodium Chloride 230 ML 115 MG IV (13:39)
--- NOTE | 2021-06-07 15:33 | MHC.CM.PN ---
Patient has been medically cleared for dc to home today, no services.
--- NOTE | 2021-06-07 15:38 | PC.NURSE ---
1500 OOB to commode, Gets very SOB SAT 84-85%, coughing assisted BTB tyl given for chest pleural pain and tessalon given On 5L via Correa cath
--- NOTE | 2021-06-07 15:38 | PM.DS ---
DS: Providers Provider Date of Service: 06/07/21 <VIRGIL Vazquez - Last Filed: 06/07/21 18:27> Date of admission: 06/05/21 10:44 <VIRGIL Vazquez - Last Filed: 06/07/21 18:27> Primary care physician: [facility] <VIRGIL Vazquez - Last Filed: 06/07/21 18:27> Consults: 06/05/21 10:52 Consult to Infectious Diseases Routine Consulting Provider: Renetta Wilcox Reason for consultation: covid positive, symptoms less than 1 week, ? remdesivir <VIRGIL Vazquez - Last Filed: 06/07/21 18:27> Attending physician on discharge: Brennen Mcdermott <VIRGIL Vazquez - Last Filed: 06/07/21 18:27> Discharging clinician: Heidi Borja <VIRGIL Vazquez - Last Filed: 06/07/21 18:27> DS: Diagnosis Discharge Diagnosis (1) Acute respiratory failure with hypoxia: Status: Acute <VIRGIL Vazquez - Last Filed: 06/07/21 18:27> (2) COVID-19: Status: Acute <VIRGIL Vazquez - Last Filed: 06/07/21 18:27> (3) Asthma with exacerbation: Status: Acute <VIRGIL Vazquez - Last Filed: 06/07/21 18:27> DS: Summary Hospital Course Hospital Course: From admission H&P on day of admission This is a 20 yo F with a PMH of asthma (suspected mild intermittent) on PRN albuterol INH / Nebs at home who presents to the hospital with complaints of shortness of breath which has been on going for the last 7 days. She reports that in the interim (not exactly sure how many days ago) she had a exposure to a known COVID positive person. She reports coughing for about 3-4 days. She denies any fevers or chills. She initially presented to [facility] on 06/04/21 where she tested for negative and was not hypoxic. She now presents 24 hours later and COVID testing is positive. She was initially not hypoxic, but saturations dropped to 85 and so she will now be admitted for further treatment. asthma exacerbation/COVID 19 she was admitted to the isolation unit and was initially started on solu medrol for asthma exacerbation. she was seen in consultation by ID who recommend to change steroids to dexamethasone, she was also started on remdecivir. Today she was able to be weaned off of oxygen and she was able to ambulate without hypoxia. She will be discharged home to complete course of steroids, she can continue to use home albuterol as needed. she should call to schedule follow up with PCP. She is encouraged to follow CDC guidelines for self isolation. She should return to ED if she has any shortness of breath. <VIRGIL Vazquez Last Filed: 06/07/21 18:27> Time Spent with Patient Time attestation: Total time spent providing and/or coordinating discharge services: <VIRGIL Vazquez Last Filed: 06/07/21 18:27> Discharge coordination time: Greater than 30 minutes <VIRGIL Vazquez Last Filed: 06/07/21 18:27> Quality: Stroke Does the patient have a stroke diagnosis?: No <VIRGIL Vazquez Last Filed: 06/07/21 18:27> Physical Exam Vital Signs: Vital Signs: Last Vital Signs Temp 98.7 F 06/07/21 15:17 Pulse 77 06/07/21 15:17 Resp 18 06/07/21 15:17 BP 122/73 06/07/21 15:17 Pulse Ox 94 06/07/21 15:17 BMI result Body Mass Index 29.2 <VIRGIL Vazquez Last Filed: 06/07/21 18:27> Const: General: cooperative, comfortable, no acute distress, alert and awake <VIRGIL Vazquez Last Filed: 06/07/21 18:27> Nutritional Appearance: well nourished <VIRGIL Vazquez Last Filed: 06/07/21 18:27> Orientation/consciousness: patient oriented x3 <VIRGIL Vazquez Last Filed: 06/07/21 18:27> HENMT: Head: Yes normocephalic and Yes atraumatic <VIRGIL Vazquez Last Filed: 06/07/21 18:27> Eyes: Sclerae: sclerae normal <VIRGIL Vazquez Last Filed: 06/07/21 18:27> Resp: Other: breathing non-labored <VIRGIL Vazquez Last Filed: 06/07/21 18:27> Effort & Inspection: normal respiratory effort and no respiratory distress <VIRGIL Vazquez Last Filed: 06/07/21 18:27> Cardio: Rate: regular rate <VIRGIL Vazquez Last Filed: 06/07/21 18:27> Rhythm: regular rhythm <VIRGIL Vazquez Last Filed: 06/07/21 18:27> GI: Palpation (GI): Soft to palpation and nontender <VIRGIL Vazquez Last Filed: 06/07/21 18:27> Neuro: General: patient oriented x3 <VIRGIL Vazquez Last Filed: 06/07/21 18:27> Cranial nerves: Yes CN's II-XII intact bilaterally and Yes Bilaterally intact EOM present <VIRGIL Vazquez Last Filed: 06/07/21 18:27> DS: Data Data Completed and Pending Labs on day of discharge: Laboratory Results - last 24 hr 06/07/21 06/07/21 06:09 06:09 WBC 8.1 RBC 5.02 Hgb 15.1 Hct 44.9 MCV 89.4 MCH 30.1 MCHC 33.6 RDW 11.8 Plt Count 344 MPV 8.9 L Absolute Nucleated RBC 0.000 Nucleated RBC % (auto) 0.0 Sodium 140 Potassium 4.7 Chloride 104 Carbon Dioxide 26 Anion Gap 15 BUN 13 D Creatinine 0.75 Estim Creat Clear Calc 103.8 Estimated GFR > 60 Random Glucose 87 Calcium 9.8 Total Bilirubin 0.3 Direct Bilirubin < 0.2 AST 14 ALT 16 Alkaline Phosphatase 73 C-Reactive Protein 0.58 H Total Protein 7.0 Albumin 4.2 Preliminary micro results at discharge 06/05/21 08:40 Blood Culture - Preliminary Blood - Venous No growth after 48 hours. 06/05/21 08:30 Blood Culture - Preliminary Blood - Venous No growth after 48 hours. <VIRGIL Vazquez - Last Filed: 06/07/21 18:27> Discharge Plan Discharge Patient Disposition: Home, Self-Care <VIRGIL Vazquez - Last Filed: 06/07/21 18:27> Discharge Diagnosis: COVID 19 asthma exacerbation <VIRGIL Vazquez - Last Filed: 06/07/21 18:27> COVID 19 asthma exacerbation <Brennen Mcdermott MD - Last Filed: 06/11/21 08:51> Referrals: [facility] [Primary Care Provider] - 1 Week <VIRGIL Vazquez - Last Filed: 06/07/21 18:27> Discharge Medications: New dexamethasone [Decadron] 6 mg tablet 6 mg PO DAILY 8 Days Qty: 8 RF: 0 Continued albuterol sulfate [ProAir HFA] 90 mcg/actuation HFA aerosol inhaler 2 puff inhalation Q4-6H PRN (Reason: Wheezing) Qty: 8.5 RF: 0 albuterol sulfate 2.5 mg /3 mL (0.083 %) solution for nebulization 2.5 mg inhalation Q4-6H PRN (Reason: shortness of breath or wheezing) Qty: 90 RF: 0 ascorbic acid (vitamin C) [Vitamin C] 500 mg Tablet 500 mg PO DAILY RF: 0 elderberry fruit 200 mg Capsule 200 mg PO DAILY RF: 0 <VIRGIL Vazquez - Last Filed: 06/07/21 18:27> Discharge Orders: Discharge Order (Routine); Ordered 06/07/21 Ordered By: Heidi Borja <VIRGIL Vazquez - Last Filed: 06/07/21 18:27> Diet: regular diet <VIRGIL Vazquez - Last Filed: 06/07/21 18:27> regular diet <Brennen Mcdermott MD - Last Filed: 06/11/21 08:51> Activity on Discharge: As tolerated <VIRGIL Vazquez - Last Filed: 06/07/21 18:27> As tolerated <Brennen Mcdermott MD - Last Filed: 06/11/21 08:51> Stand Alone Forms: Patient Portal Discharge page <VIRGIL Vazquez - Last Filed: 06/07/21 18:27> Care Plan Goals: see below <VIRGIL Vazquez - Last Filed: 06/07/21 18:27> Health Concerns: covid 19 asthma exacerbation <VIRGIL Vazquez - Last Filed: 06/07/21 18:27> Plan of Treatment: asthma: Take entire course of steroids Use inhalers prn covid 19: Follow CDC Guidelines for home isolation: - Stay away from others - Limit contact with pets and animals: If you must care for a pet, wash your hands before and after interacting with them - Wear a mask if you are sick - Cover your mouth and nose with a tissue when you cough or sneeze. Dispose of tissues in a lined trash can and wash your hands immediately with soap and water for at least 20 seconds. If soap and water are not available, clean hands with alcohol-based hand it applications developer that contains at least 60% alcohol. - Clean your hands often with soap and water for at least 20 seconds - Avoid touching your eyes, nose and mouth with unwashed hands - Do not share dishes, drinking glasses, cups, eating utensils, towels, or bedding with other people in your home. After using these items, wash them thoroughly with soap and water or put in the disability coordinator. - Clean high-touch surfaces in your isolation area ( sick room and bathroom) every day; let a caregiver clean and disinfect high-touch surfaces in other areas of the home. Clean the area or item with soap and water or another detergent if it is dirty. Then, use a household disinfectant. Seek medical attention, but call first: - Seek medical care right away if your illness is worsening (for example, if you have difficulty breathing). - Call your doctor before going in: Before going to the doctor's office or emergency room, call ahead and tell them your symptoms. They will tell you what to do. - If possible, put on a facemask before you enter the building. If you can't put on a facemask, try to keep a safe distance from other people (at least 6 feet away). This will help protect the people in the office or waiting room. - Follow care instructions from your healthcare provider and local health department: Your local health authorities will give instructions on checking your symptoms and reporting information. Emergency warning signs for COVID-19: - Difficulty breathing or shortness of breath - Persistent pain or pressure in the chest - New confusion or inability to arouse - Bluish lips or face Call to schedule follow up with PCP Return to the ED if you develop any shortness of breath <VIRGIL Vazquez - Last Filed: 06/07/21 18:27> Assessment: see discharge instructions Attending Attestation: I have personally seen and examined the patient independently (on the date of service as documented by NPP), reviewed the NPP history, exam and?MDM and agree with the assessment and plan as?written <VIRGIL Vazquez - Last Filed: 06/07/21 18:27> Discharge Date/Time: 06/07/21 16:44 <VIRGIL Vazquez - Last Filed: 06/07/21 18:27>
== END 2021-06-07 16:44 | disposition home or self-care (01) | DRG 137 ==
LOC: HO.ED 08:13 → HO.EDOVER 10:54 → HO.IMC 23:15
PROVIDERS: Admitting Provider Family Medicine; Emergency Provider Emergency Medicine; PCP Nurse Practitioner; Visit Provider Physician Assistant Medical
DX: U07.1 COVID-19 (principal); J96.01 Acute respiratory failure with hypoxia; J45.51 Severe persistent asthma with (acute) exacerbation; F17.210 Nicotine dependence, cigarettes, uncomplicated; Z71.6 Tobacco abuse counseling; Z79.899 Other long term (current) drug therapy
CPT/HCPCS: 36415; 71045; 80048; 80076; 82728; 83605; 83615; 83735; 84145; 84702; 85025; 85027; 85379; 86140; 87040; 87635; 93005; 96374; 99285; J1100; J1650; J2920; J3490

== ENCOUNTER 2021-06-17 05:12 | Emergency (ER) | payer MEDICAID, SELFPAY ==
[2021-06-17 05:21] VITALS: BP 125/79; PULSE 86; RESP 20; TEMP 36.6; O2SAT 96; BMI 30.2
[2021-06-17 05:33] LABS: Hemoglobin 14.2 g/dl (12.0-16.0); Mean Corpuscular HGB Conc 33.8 g/dl (31.0-35.0); Mean Corpuscular Hemoglobin 30.5 pg (27.0-33.0); Mean Corpuscular Volume 90.3 fL (80.0-98.0); Mean Platelet Volume 8.4 fL (9.4-12.3); Platelet Count 363 X10*3/uL (160-400); Red Blood Count 4.65 X10*6/uL (4.20-5.50); Red Cell Distribution Width 11.8 % (11.0-16.0); White Blood Count 18.2 X10*3/uL (4.8-10.8)
[2021-06-17 05:49] LABS: Alanine Aminotransferase 34 U/L (0-31); Albumin Level 3.8 g/dL (3.5-5.0); Alkaline Phosphatase 69 U/L (39-117); Anion Gap 14 (12-20); Aspartate Amino Transferase 13 U/L (5-31); Bilirubin Total 0.3 mg/dL (0.0-1.0); Blood Urea Nitrogen 21 mg/dL (9-16); Calcium 9.1 mg/dL (8.4-10.2); Carbon Dioxide 23 mmol/L (22-29); Chloride 105 mmol/L (96-108); Creatinine Clr Calc Pharmacy 123.7; Estimated Glomerular Filt Rate > 60; Glucose Random 86 mg/dL (60-115); Potassium 4.1 mmol/L (3.3-5.1); Sodium 138 mmol/L (135-145); Total Protein 6.3 g/dL (6.5-8.0)
[2021-06-17 05:59] LABS: Atypical Lymph Absolute Manual 0.2 x10*3/uL; Atypical Lymphs Percent Manual 1 % (0-6); Band Neutrophils Percent 0 % (3-5); Lymphocytes Absolute Manual 5.6 X10*3/uL (1.2-4.9); Lymphocytes Percent Manual 31 % (20-40); Metamyelocytes Absolute 0.9 X10*3/uL; Metamyelocytes Percent 5 %; Monocytes Absolute Manual 1.3 X10*3/uL (0.1-1.2); Monocytes Percent Manual 7 % (2-11); Neutrophils Absolute Manual 10.2 X10*3/uL (2.0-8.3); Neutrophils Percent Manual 56 % (45-73)
[2021-06-17 06:00] LABS: Acanthocytes 1+ (0-2) /OIF; Burr Cells 1+ (0-2) /OIF; Platelet Estimate NORMAL (NORMAL); Platelet Morphology Comment NORMAL; RBC Morphology NORMAL; Smudge Cells PRESENT; Toxic Vacuolation PRESENT
[2021-06-17 06:14] LABS: D Dimer High Sensitivity < 150 NG/ML
[2021-06-17 07:12] LABS: C Reactive Protein 0.04 mg/dL (< or = 0.50)
--- NOTE | 2021-06-17 07:23 | ED_ITS ---
HPI - Extremity Injury (Lower) General Chief Complaint: Extremity Injury, Lower Stated Complaint: R/L Leg Pain No Injury Time Seen by Provider: 06/17/21 06:13 Source: patient Mode of arrival: ambulatory Limitations: no limitations History of Present Illness HPI Narrative: 20-year-old female came in for evaluation of bilateral lower extremities pain. Pain started about week ago is been getting worse over the past 5 days, patient describes the pain as a deep aching pain on both thighs and upper legs, pain is constant and severe 10/10, pain is worse when she ambulates and try to walk, rest alleviates the pain, patient did not try any OTC medication home. Never had similar symptoms in the past. Patient declined any fever, no chills, no recent travel. No family history or personal history of DVT or blood clots. Patient declined any trauma to the lower extremities. No rash. No other neurological symptoms in particular no headache, no fever, no weakness, no loss of sensation. Patient with chronic history of asthma just finish a course of dexamethasone a day ago. Related Data Home Medications Medication Instructions Recorded Confirmed ascorbic acid (vitamin C) 500 mg 500 mg PO DAILY 06/05/21 06/05/21 tablet (Vitamin C) elderberry fruit 200 mg capsule 200 mg PO DAILY 06/05/21 06/05/21 Previous Rx's Medication Instructions Recorded albuterol sulfate 2.5 mg (3 mL) INHALATION Q4-6H PRN 06/04/21 #90 ml albuterol sulfate 90 mcg/actuation 2 puff INHALATION Q4-6H PRN #8.5 g 06/04/21 aerosol inhaler (ProAir HFA) dexamethasone 6 mg tablet 6 mg PO DAILY 8 Days #8 tab 06/07/21 (Decadron) Allergies Allergy/AdvReac Type Severity Reaction Status Date / Time No Known Allergies Allergy Unverified 06/17/21 05:20 Review of Systems Review of Systems: All other systems are reviewed and are negative Constitutional: Reports as per HPI and Reports no additional constitutional complaints Eyes: Reports as per HPI and Reports no additional eye complaints Reports system reviewed and no additional complaints, except as documented Cardiovascular: Reports as per HPI and Reports no additional cardiovascular complaints Respiratory: Reports as per HPI and Reports no additional respiratory complaints Gastrointestinal: Reports as per HPI and Reports no additional gastrointestinal complaints Genitourinary: Reports no additional female genitourinary complaints Musculoskeletal: Reports no additional musculoskeletal complaints Skin/Breast: Reports system reviewed and no additional complaints, except as docu Psychiatric: Reports no additional psychiatric complaints Endocrine: Reports no additional endocrine complaints Hematologic/Lymphatic: Reports no additional hematologic/lymphatic complaints Allergic/Immunologic: Reports no additional allergic/immunologic complaints Reports system reviewed and no additional complaints, except as documented and Reports Abnormal speech present [facility] Past Medical History Medical History Asthma Surgical History No pertinent past surgical history Social History Social History Household Members: Other Household Members Other:: Home with mother Housing: House Do you presently have visiting nurse or other home services: No Unable to assess alcohol history related to: Unknown Alcohol intake: never Patient Tobacco Use Status: Current someday Tobacco user Advance Directives: No Advance Directives Information Provided: No Patient : No service: No Current occupational status: unemployed Physical Exam Vital Signs: Vital Signs: Last Vital Signs Temp 98 F 06/17/21 05:21 Pulse 86 06/17/21 05:21 Resp 20 06/17/21 05:21 BP 125/79 06/17/21 05:21 Pulse Ox 96 06/17/21 05:21 BMI result Body Mass Index 30.2 Vital signs have been reviewed as appeared to be correct. Blood pressure normal. Heart rate normal. Respiration rate normal. Temperature normal. Oxygen saturation normal. Appearance: Alert. Oriented X3. No acute distress. Head: Normal external exam. Normocephalic. Atraumatic. No Serna signs noted. No raccoon eyes noted Eyes: PERRLA. EOMI. Conjunctiva and sclera normal. Eyelids normal. ENT: TM's Normal. Pharynx normal. Uvula midline. Moist mucous membranes. No trismus noted. No drooling noted. No muffled voice noted. Neck: Normal inspection. Neck supple. FROM. No adenopathy. Thyroid Normal. No meningeal signs. No neck mass noted. CVS: Normal heart rate and rhythm. Heart sound normal. No murmurs noted. Pulses normal throughout. Respiratory: No respiratory distress. Painless inspiration. Breath sounds normal. No wheezes/rales/rhonchi noted. Chest nontender. No accessory muscle usage noted or decreased air movement noted. Abdomen: Soft and nontender. Bowel sounds normal in all 4 quadrants. No distention noted. No organomegaly noted. No visible injury noted. Back: No CVA tenderness. Full range of motion noted. Skin: Skin warm and dry. Normal skin color. Normal skin turgor. No rashes/lesions/lacerations noted. Extremities: No lower extremity edema. Extremities exhibit normal range of motion. Extremities nontender. Neuro: Oriented X 3. Cranial nerve exam: II-XII are grossly intact No motor deficit. No sensory deficit. Reflexes normal. Course Course Course Narrative: Bilateral lower extremities pain. 1. Leukocytosis no obvious infectious process to explain the leukocytosis, however patient just finished course of dexamethasone for her asthma which may increase WBCs that much. 2. Normal total CPK making rhabdomyolysis unlikely. Normal sed rate and CRP 3. No history of trauma or injury to the lower extremities with normal physical exam. 4. Patient has no risk for DVT was unremarkable negative D-dimer making DVT is unfavorable diagnoses. 5. Physical exam show no erythema or rash making infection is not likely underlying cause of patient's symptoms. 6. Neurological exam is intact. Patient overall improved after was given oxycodone. Will discharge the patient home use NSAIDs p.r.n. pain, follow-up with PCP. MDM - Extremity Injury (Lower) Lab Data Result diagrams: 06/17/21 05:26 06/17/21 05:26 Labs: Lab Results 06/17/21 06/17/21 06/17/21 Range/Units 05:26 05:26 05:26 WBC 18.2 H (4.8-10.8) X10*3/uL RBC 4.65 (4.20-5.50) X10*6/uL Hgb 14.2 (12.0-16.0) g/dl Hct 42.0 (37.0-47.0) % MCV 90.3 (80.0-98.0) fL MCH 30.5 (27.0-33.0) pg MCHC 33.8 (31.0-35.0) g/dl RDW 11.8 (11.0-16.0) % Plt Count 363 (160-400) X10*3/uL MPV 8.4 L (9.4-12.3) fL Immature Gran % (Auto) Cancelled Neut % (Auto) Cancelled Lymph % (Auto) Cancelled Chester % (Auto) Cancelled Eos % (Auto) Cancelled Baso % (Auto) Cancelled Lymph # (Auto) Cancelled [place] # (Auto) Cancelled Eos # (Auto) Cancelled Baso # (Auto) Cancelled Abs Immat Gran (auto) Cancelled Absolute Neuts (auto) Cancelled Absolute Nucleated RBC 0.000 (0.0-0.012) X10*3/uL Nucleated RBC % (auto) 0.0 (0.0-0.2) /100WBC Neutrophils % (Manual) 56 (45-73) % Band Neutrophils % 0 L (3-5) % Lymphocytes % (Manual) 31 (20-40) % Atypical Lymphs % (Man) 1 (0-6) % Monocytes % (Manual) 7 (2-11) % Metamyelocytes % 5 % Abs Neuts (Manual) 10.2 H (2.0-8.3) X10*3/uL Lymphocytes # (Manual) 5.6 H (1.2-4.9) X10*3/uL Atyp Lymphs # (Manual) 0.2 x10*3/uL Monocytes # (Manual) 1.3 H (0.1-1.2) X10*3/uL Metamyelocytes # 0.9 X10*3/uL Smudge Cells PRESENT Toxic Vacuolation PRESENT Platelet Estimate NORMAL (NORMAL) Plt Morphology Comment NORMAL RBC Morphology NORMAL Otf Cells 1+ (0-2) /OIF Acanthocytes (Spur) 1+ (0-2) /OIF Smear Path Review Cancelled ESR (0-20) MM/HR D-Dimer High Sensitivty < 150 NG/ML Sodium 138 (135-145) mmol/L Potassium 4.1 (3.3-5.1) mmol/L Chloride 105 (96-108) mmol/L Carbon Dioxide 23 (22-29) mmol/L Anion Gap 14 (12-20) BUN 21 H D (9-16) mg/dL Creatinine 0.64 (0.5-1.4) mg/dL Estim Creat Clear Calc 123.7 Estimated GFR > 60 Random Glucose 86 (60-115) mg/dL Calcium 9.1 D (8.4-10.2) mg/dL Total Bilirubin 0.3 (0.0-1.0) mg/dL AST 13 (5-31) U/L ALT 34 H (0-31) U/L Alkaline Phosphatase 69 (39-117) U/L Total Creatine Kinase 24 L (26-140) U/L C-Reactive Protein 0.04 (< or = 0.50) mg/dL Total Protein 6.3 L (6.5-8.0) g/dL Albumin 3.8 (3.5-5.0) g/dL 06/17/21 Range/Units 05:26 WBC (4.8-10.8) X10*3/uL RBC (4.20-5.50) X10*6/uL Hgb (12.0-16.0) g/dl Hct (37.0-47.0) % MCV (80.0-98.0) fL MCH (27.0-33.0) pg MCHC (31.0-35.0) g/dl RDW (11.0-16.0) % Plt Count (160-400) X10*3/uL MPV (9.4-12.3) fL Immature Gran % (Auto) Neut % (Auto) Lymph % (Auto) Chester % (Auto) Eos % (Auto) Baso % (Auto) Lymph # (Auto) Chester # (Auto) Eos # (Auto) Baso # (Auto) Abs Immat Gran (auto) Absolute Neuts (auto) Absolute Nucleated RBC (0.0-0.012) X10*3/uL Nucleated RBC % (auto) (0.0-0.2) /100WBC Neutrophils % (Manual) (45-73) % Band Neutrophils % (3-5) % Lymphocytes % (Manual) (20-40) % Atypical Lymphs % (Man) (0-6) % Monocytes % (Manual) (2-11) % Metamyelocytes % % Abs Neuts (Manual) (2.0-8.3) X10*3/uL Lymphocytes # (Manual) (1.2-4.9) X10*3/uL Atyp Lymphs # (Manual) x10*3/uL Monocytes # (Manual) (0.1-1.2) X10*3/uL Metamyelocytes # X10*3/uL Smudge Cells Toxic Vacuolation Platelet Estimate (NORMAL) Plt Morphology Comment RBC Morphology [place] Cells /OIF Acanthocytes (Spur) /OIF Smear Path Review ESR 4 (0-20) MM/HR D-Dimer High Sensitivty NG/ML Sodium (135-145) mmol/L Potassium (3.3-5.1) mmol/L Chloride (96-108) mmol/L Carbon Dioxide (22-29) mmol/L Anion Gap (12-20) BUN (9-16) mg/dL Creatinine (0.5-1.4) mg/dL Estim Creat Clear Calc Estimated GFR Random Glucose (60-115) mg/dL Calcium (8.4-10.2) mg/dL Total Bilirubin (0.0-1.0) mg/dL AST (5-31) U/L ALT (0-31) U/L Alkaline Phosphatase (39-117) U/L Total Creatine Kinase (26-140) U/L C-Reactive Protein (< or = 0.50) mg/dL Total Protein (6.5-8.0) g/dL Albumin (3.5-5.0) g/dL Discharge Plan Discharge Clinical Impression: Muscle pain, myofascial Patient Disposition: Home, Self-Care Instructions: Musculoskeletal Pain (ED) Prescriptions: No Action albuterol sulfate [ProAir HFA] 90 mcg/actuation HFA aerosol inhaler 2 puff inhalation Q4-6H PRN (Reason: Wheezing) Qty: 8.5 RF: 0 albuterol sulfate 2.5 mg /3 mL (0.083 %) solution for nebulization 2.5 mg inhalation Q4-6H PRN (Reason: shortness of breath or wheezing) Qty: 90 RF: 0 ascorbic acid (vitamin C) [Vitamin C] 500 mg Tablet 500 mg PO DAILY RF: 0 elderberry fruit 200 mg Capsule 200 mg PO DAILY RF: 0 dexamethasone [Decadron] 6 mg tablet 6 mg PO DAILY 8 Days Qty: 8 RF: 0 Referrals: Johanna Zazueta MD [Primary Care Provider] - 2 days
[2021-06-17] MEDS: oxyCODONE HCl Immed Release 5 MG TABLET PO (07:52)
[2021-06-17 08:04] LABS: Erythrocyte Sedimentation Rate 4 MM/HR (0-20)
[2021-06-17 08:48] LABS: Appearance Urine CLEAR; Color Urine STRAW; Glucose Urine UA NEG (NEG); Leukocyte Esterase Urine NEG (NEG); Nitrite Urine NEG (NEG); Specific Gravity - Urine <= 1.005 (1.005-1.025); Urine Blood NEG (NEG); Urine Ketones NEG (NEG); Urine Protein NEG (NEG-TRACE)
[2021-06-17 08:51] LABS: UPreg QC Valid YES
[2021-06-17 08:52] LABS: Urine Pregnancy NEGATIVE (NEGATIVE)
== END 2021-06-17 09:17 | disposition home or self-care (01) ==
PROVIDERS: Emergency Provider Emergency Medicine; PCP Pediatrics
DX: M79.18 Myalgia, other site (principal); J45.909 Unspecified asthma, uncomplicated
CPT/HCPCS: 36415; 80053; 81003; 81025; 82550; 85007; 85027; 85379; 85652; 86140; 99283

== ENCOUNTER 2021-07-02 10:23 | Outpatient (REF) | payer MEDICAID, SELFPAY ==
[2021-07-02 11:32] LABS: COVID-19 Test Positive (Negative)
== END 2021-07-02 10:24 | disposition home or self-care (01) ==
LOC: HO.LAB 10:23
PROVIDERS: Visit Provider Internal Medicine
DX: Z20.822 Contact with and (suspected) exposure to COVID-19 (principal)
CPT/HCPCS: 87635; C9803

== ENCOUNTER 2021-11-27 23:43 | Inpatient (IN) | payer MEDICAID, SELFPAY ==
--- NOTE | ~2021-11-27 | XR_ITS ---
EXAMINATION: XR CHEST CLINICAL INFORMATION: Shortness of breath COMPARISON: 06/05/2021 TECHNIQUE: 2 views of the chest were obtained. FINDINGS: Right upper lobe collapse. Left lung clear. No pleural effusion or pneumothorax. Normal heart size and pulmonary vascularity. No acute or suspicious osseous abnormalities. XR/XR chest 2V IMPRESSION: Right upper lobe collapse which is new from the prior exam. This may relate to mucous plugging with postobstructive atelectasis. Consider pulmonary toilet and repeat radiographs after treatment. If persistent, CT may be indicated to exclude centrally obstructing mass.
--- NOTE | ~2021-11-27 | XR_ITS ---
EXAMINATION: XR CHEST CLINICAL INFORMATION: Cough and congestion COMPARISON: Previous chest x-ray from yesterday and older exam May 2021 TECHNIQUE: Frontal view of the chest was obtained. FINDINGS: The cardiac and mediastinal contours are stable. There is interval increase in right upper lobe atelectasis and consolidation from yesterday's exam. This is a new finding from May 2021 exam. The lungs are otherwise clear. There is no pleural effusion or pneumothorax. Bony structures are unremarkable. XR/XR chest 1V IMPRESSION: Increasing right upper lobe atelectasis and consolidation from yesterday's exam.
[2021-11-28] VITALS (12 sets, daily range): BP systolic 118–153; BP diastolic 72–94; PULSE 74–108; RESP 16–28; TEMP 35.9–37.1; O2SAT 91–96; BMI 27.1
[2021-11-28 00:57] LABS: COVID-19 Test Negative (Negative); IDNOW Serial# 16C4AD1C; Influenza A Negative (Negative); Influenza B2 Negative (Negative)
--- NOTE | 2021-11-28 02:51 | PC.NURSE ---
pt a&ox3, vss, pt reports that she smoked marijuana over the weekend and asthma has been worse since, chest tightness/sob/coughing, pt nauseous and vomiting today. pt O2 is 92-94% on RA, speaking in full sentences. pending ED provider.
--- NOTE | 2021-11-28 02:59 | ED.GENADULT ---
HPI - General Adult General Chief complaint: General Medical Stated complaint: asthmatic, chest tightness, meds ineffective Time Seen by Provider: 11/28/21 02:50 Source: patient Mode of arrival: ambulatory Limitations: no limitations History of Present Illness HPI narrative: Patient comes to the emergency room complaining of chest tightness. Patient states it started suddenly yesterday while she was at work. Patient denies being sick previously. Patient has been using multiple nebulization treatments with no relief. Patient denies any recent URI or UTI symptoms. Related Data Home Medications Medication Instructions Recorded Confirmed ascorbic acid (vitamin C) 500 mg 500 mg PO DAILY 06/05/21 06/05/21 tablet (Vitamin C) elderberry fruit 200 mg capsule 200 mg PO DAILY 06/05/21 06/05/21 Previous Rx's Medication Instructions Recorded albuterol sulfate 2.5 mg (3 mL) inhalation Q4-6H PRN 06/04/21 shortness of breath or wheezing #90 mL albuterol sulfate 90 mcg/actuation 2 puff inhalation Q4-6H PRN 06/04/21 aerosol inhaler (ProAir HFA) Wheezing #8.5 grams dexamethasone 6 mg tablet 6 mg PO DAILY 8 days #8 tabs 06/07/21 (Decadron) Allergies Allergy/AdvReac Type Severity Reaction Status Date / Time No Known Allergies Allergy Unverified 06/17/21 05:20 Review of Systems Review of Systems: Constitutional : No Weight loss, No Fever, No Chills, No Night Sweats, No Fatigue, No Malaise ENT/Mouth : No Hearing loss, No Ear Pain, No Nasal Congestion, No Sinus Pain, No Hoarseness, No sore throat, No Rhinorrhea, No Swallowing Difficulty Eyes: No Eye Pain, No Swelling, No Redness, No Foreign Body, No Discharge, No Vision Changes Cardiovascular : No Chest Pain, complaining of chest tightness no palpitations, no orthopnea Respiratory : Complaining of cough, wheezing, chest tightness with respirations Gastrointestinal : No Nausea, No Vomiting, No Diarrhea, No Constipation, No abdominal Pain, No Hematochezia, No Melena Genitourinary : no irregular bleeding, No Dysuria, No Urinary Frequency, No Hematuria, No Urinary Incontinence, No Urgency, No Flank Pain, No Urinary Flow Changes, No Hesitancy Musculoskeletal : No joint pain, No Myalgias, No Joint Swelling Skin : No Skin Lesions, No rash Neuro : No Weakness, No Numbness, No Paresthesias, No Loss of Consciousness, No Dizziness, No Headache Psych : No Anxiety/Panic, No Depression, No SI/HI/AH/VH, No Social Issues, Heme/Lymph: No Bruising, No Bleeding,No Lymphadenopathy Endocrine : No Polyuria, No Polydipsia, No Temperature Intolerance [facility] Past Medical History Medical History Asthma Surgical History No pertinent past surgical history Social History Social History Household Members: Other Household Members Other:: Home with mother Housing: House Do you presently have visiting nurse or other home services: No Unable to assess alcohol history related to: Unknown Alcohol intake: current Alcohol intake frequency: holidays/special occasions only Alcohol type: hard liquor Patient Tobacco Use Status: Never used Tobacco Use of substances other than those prescribed or required for medical reasons: Yes Substance Use Type: Marijuana Substance Use Frequency: Occasionally Advance Directives: No Advance Directives Information Provided: Yes Patient : No service: No Current occupational status: unemployed Physical Exam ED Vital Signs: Vital Signs - 24 hr 11/28/21 00:23 11/28/21 02:00 11/28/21 03:29 Temperature 98.7 F 98.4 F Pulse Rate 87 108 H 93 Respiratory Rate 20 18 18 Blood Pressure 153/90 H 144/80 H Pulse Oximetry 96 93 Oxygen Delivery Method Room Air Room Air BMI result Body Mass Index 27.1 Const Other: Appearance: Alert. Oriented X3. No acute distress. Eyes: Pupils equal, round and reactive to light. ENT: Pharynx normal. Neck: Normal inspection. Neck supple. No lymph nodes noted. No crepitus CVS: Normal heart rate and rhythm. Pulses normal. Normal S1 and S2 Respiratory: No respiratory distress. Bilateral wheezing, fairly good air movement Abdomen: Soft and nontender. No rigidity. No distention. Skin: Skin warm and dry. Normal skin color. Normal skin turgor. Extremities: No lower extremity edema. No Lacerations. No Rash Neuro: Oriented X 3. No motor deficit. No sensory deficit. Moving all extremities. No slurred speech. CN 2 through 12 grossly intact Psych: calm, cooperative, normal affect Course Course Course Narrative: I discussed with the patient that her chest x-ray shows a pulmonary block, right upper lobe collapse. I discussed with the patient that eventually he would be better if we get her admitted. Patient will need repeat chest x-rays and pulmonary toiletry. Patient being admitted Medical Decision Making Lab Data Result diagrams: 11/28/21 03:25 11/28/21 03:26 Labs: Lab Results 11/28/21 11/28/21 11/28/21 Range/Units 00:33 00:33 03:25 WBC 10.1 (4.8-10.8) X10*3/uL RBC 5.06 (4.20-5.50) X10*6/uL Hgb 15.3 (12.0-16.0) g/dl Hct 44.4 (37.0-47.0) % MCV 87.7 (80.0-98.0) fL MCH 30.2 (27.0-33.0) pg MCHC 34.5 (31.0-35.0) g/dl RDW 12.3 (11.0-16.0) % Plt Count 308 (160-400) X10*3/uL MPV 8.7 L (9.4-12.3) fL Immature Gran % (Auto) 0.3 (0.0-0.4) % Neut % (Auto) 77.9 H (45-73) % Lymph % (Auto) 12.1 L (20-40) % Jerome % (Auto) 7.6 (2-11) % Eos % (Auto) 1.9 (0-4) % Baso % (Auto) 0.2 (0-2) % Lymph # (Auto) 1.2 (1.2-4.9) X10*3/uL Jerome # (Auto) 0.8 (0.1-1.2) X10*3/uL Eos # (Auto) 0.2 (0.0-0.4) X10*3/uL Baso # (Auto) 0.0 (0.0-0.2) X10*3/uL Abs Immat Gran (auto) 0.03 (0.00-0.03) X10*3/uL Absolute Neuts (auto) 7.8 (2.0-8.3) x10*3/uL Absolute Nucleated RBC 0.000 (0.0-0.012) X10*3/uL Nucleated RBC % (auto) 0.0 (0.0-0.2) /100WBC Sodium (135-145) mmol/L Potassium (3.3-5.1) mmol/L Chloride (96-108) mmol/L Carbon Dioxide (22-29) mmol/L Anion Gap (12-20) BUN (9-16) mg/dL Creatinine (0.5-1.4) mg/dL Estim Creat Clear Calc Estimated GFR Random Glucose (60-115) mg/dL Calcium (8.4-10.2) mg/dL COVID-19 (IMELDA) Negative (Negative) COVID-19 Clin Com See Note Influenza Type A (DAVY) Negative (Negative) Influenza Type B (DAVY) Negative (Negative) Influenza A & B Note See Note 11/28/21 Range/Units 03:26 WBC (4.8-10.8) X10*3/uL RBC (4.20-5.50) X10*6/uL Hgb (12.0-16.0) g/dl Hct (37.0-47.0) % MCV (80.0-98.0) fL MCH (27.0-33.0) pg MCHC (31.0-35.0) g/dl RDW (11.0-16.0) % Plt Count (160-400) X10*3/uL MPV (9.4-12.3) fL Immature Gran % (Auto) (0.0-0.4) % Neut % (Auto) (45-73) % Lymph % (Auto) (20-40) % Jerome % (Auto) (2-11) % Eos % (Auto) (0-4) % Baso % (Auto) (0-2) % Lymph # (Auto) (1.2-4.9) X10*3/uL Jerome # (Auto) (0.1-1.2) X10*3/uL Eos # (Auto) (0.0-0.4) X10*3/uL Baso # (Auto) (0.0-0.2) X10*3/uL Abs Immat Gran (auto) (0.00-0.03) X10*3/uL Absolute Neuts (auto) (2.0-8.3) x10*3/uL Absolute Nucleated RBC (0.0-0.012) X10*3/uL Nucleated RBC % (auto) (0.0-0.2) /100WBC Sodium 137 (135-145) mmol/L Potassium 4.0 (3.3-5.1) mmol/L Chloride 103 (96-108) mmol/L Carbon Dioxide 23 (22-29) mmol/L Anion Gap 15 (12-20) BUN 6 L D (9-16) mg/dL Creatinine 0.71 (0.5-1.4) mg/dL Estim Creat Clear Calc 104.7 Estimated GFR > 60 Random Glucose 84 (60-115) mg/dL Calcium 9.6 (8.4-10.2) mg/dL COVID-19 (IMELDA) (Negative) COVID-19 Clin Com Influenza Type A (DAVY) (Negative) Influenza Type B (DAVY) (Negative) Influenza A & B Note Discharge Plan Discharge Clinical Impression: Collapse of right lung, Asthma exacerbation Patient Disposition: Admitted As Inpatient
[2021-11-28] MEDS: Albuterol Sulfate (0.083%) 2.5 MG/3 ML VIAL.NEB 10 MG INHALE (03:24)
[2021-11-28 03:30] LABS: Basophils Percent Auto 0.2 % (0-2); Eosinophils Absolute Auto 0.2 X10*3/uL (0.0-0.4); Eosinophils Percent Auto 1.9 % (0-4); Hematocrit 44.4 % (37.0-47.0); Hemoglobin 15.3 g/dl (12.0-16.0); Imm Gran Abs Auto 0.03 X10*3/uL (0.00-0.03); Imm Gran Pct Auto 0.3 % (0.0-0.4); Lymphocytes Absolute Auto 1.2 X10*3/uL (1.2-4.9); Lymphocytes Percent Auto 12.1 % (20-40); MANUAL DIFF FLAG NO; Mean Corpuscular HGB Conc 34.5 g/dl (31.0-35.0); Mean Corpuscular Hemoglobin 30.2 pg (27.0-33.0); Mean Corpuscular Volume 87.7 fL (80.0-98.0); Mean Platelet Volume 8.7 fL (9.4-12.3); Monocytes Absolute Auto 0.8 X10*3/uL (0.1-1.2); Monocytes Percent Auto 7.6 % (2-11); Neutrophils Absolute Auto 7.8 x10*3/uL (2.0-8.3); Neutrophils Percent Auto 77.9 % (45-73); Platelet Count 308 X10*3/uL (160-400); Red Blood Count 5.06 X10*6/uL (4.20-5.50); Red Cell Distribution Width 12.3 % (11.0-16.0); White Blood Count 10.1 X10*3/uL (4.8-10.8)
[2021-11-28] MEDS: methylPREDNISolone Sod Succ 125 MG/2 ML VIAL IVPUSH (03:35)
[2021-11-28] MEDS: Magnesium Sulfate/H2O 2 GM/50 ML PIGGYBACK IV (03:35)
--- NOTE | 2021-11-28 03:45 | PC.NURSE ---
pt a&o, pt is wheezing but able to speak in full sentences. no retractions or sign of respiratory distress. pt having a respiratory treatment. Medicated per Aug. pt on Bed side monitor. Will continue to monitor.
[2021-11-28 03:50] LABS: Anion Gap 15 (12-20); Blood Urea Nitrogen 6 mg/dL (9-16); Calcium 9.6 mg/dL (8.4-10.2); Carbon Dioxide 23 mmol/L (22-29); Chloride 103 mmol/L (96-108); Creatinine Clr Calc Pharmacy 104.7; Estimated Glomerular Filt Rate > 60; Glucose Random 84 mg/dL (60-115); Sodium 137 mmol/L (135-145)
--- NOTE | 2021-11-28 05:24 | P.HPHOSP_ITS ---
History of Present Illness Date of Service: 11/28/21 Chief Complaint: SOB, chest pain 21-year-old female with past medical history of asthma presents to the hospital with complaints of shortness of breath, chest tightness, as well as wheezing for the past 2 days. Patient reports that she had significant severe chest tightness in the mid center of her chest, nonradiating, constant, 8/10, with no relieving or exacerbating factors that she has been experiencing for the past 2 days and it got worse today therefore she came to the hospital. She reports a cough for the past few days, wheezing, no fever or chills, reports that her asthma is generally well controlled. She smokes about few cigarettes a week. She reports no recent upper respiratory infection, no recent travel or sick contacts. On arrival to the ED patient hemodynamically stable with no significant abnormal vitals except slightly elevated blood pressure Labs reviewed and were unremarkable. Chest x-ray shows lobe collapse which is new from the prior exam, this may be related to mucous plugging with postobstructive atelectasis, consider pulmonary toilet and repeat imaging post treatment. Patient will be admitted for further management Review of Systems Review of Systems: Yes all other systems are reviewed and are negative [facility] Medical History Asthma Family History (Updated 11/28/21 @ 06:20 by Dallin Campbell MD) Mother Hypertension Surgical History No pertinent past surgical history Social History Household Members: Other Household Members Other:: Home with mother Housing: House Do you presently have visiting nurse or other home services: No Unable to assess alcohol history related to: Unknown Alcohol intake: current Alcohol intake frequency: holidays/special occasions o nly Alcohol type: hard liquor Patient Tobacco Use Status: Never used Tobacco Use of substances other than those prescribed or required for medical reasons: Yes Substance Use Type: Marijuana Substance Use Frequency: Occasionally Advance Directives: No Advance Directives Information Provided: Yes Patient : No service: No Current occupational status: unemployed Meds Allergies Allergy/AdvReac Type Severity Reaction Status Date / Time No Known Allergies Allergy Unverified 06/17/21 05:20 Active Medications: Current Medications Acetaminophen (Acetaminophen 325 Mg Tablet) 650 mg PO Q6H PRN PRN Reason: Pain, Mild (Pain Scale 1-3) Albuterol/Ipratropium (Albuterol/Iprat 2.5/0.5mg 3 Ml Ampul.Neb) 3 ml INHALE RQ4H PRN PRN Reason: Shortness of Breath/Wheezing Albuterol/Ipratropium (Albuterol/Iprat 2.5/0.5mg 3 Ml Ampul.Neb) 3 ml INHALE RQ4H WHILE AWAKE JANETTE Docusate Sodium (Docusate Sodium 100 Mg Capsule) 100 mg PO DAILY PRN PRN Reason: Constipation Methylprednisolone Sodium Succinate (Methylprednisolone Sod Succ 40 Mg/Ml Vial) 40 mg IVPUSH Q12H JANETTE Ondansetron HCl (Ondansetron Hcl 4 Mg/2 Ml Vial) 4 mg IVPUSH Q8H PRN PRN Reason: Nausea and Vomiting Sodium Chloride (0.9 % Sodium Chloride Flush 3 Ml Syringe) 3 ml IVFLUSH QSHIFT PENDING SALE TO [facility] Home Medications Medication Instructions Recorded Confirmed Last Taken Type ascorbic acid (vitamin C) 500 mg 500 mg PO DAILY 06/05/21 06/05/21 Unknown History tablet (Vitamin C) elderberry fruit 200 mg capsule 200 mg PO DAILY 06/05/21 06/05/21 Unknown History Physical Exam Vital Signs and Narrative: Vital Signs: Last Vital Signs Temp 98.4 F 11/28/21 02:00 Pulse 93 11/28/21 03:29 Resp 18 11/28/21 03:29 BP 144/80 H 11/28/21 02:00 Pulse Ox 93 11/28/21 02:00 O2 Del Method 11/28/21 02:00 BMI result Body Mass Index 27.1 Results Labs CBC and Chem 7: 11/28/21 03:25 11/28/21 03:26 Labs: Laboratory Results - last 24 hr 11/28/21 11/28/21 11/28/21 00:33 00:33 03:25 MCV 87.7 MCH 30.2 MCHC 34.5 RDW 12.3 Plt Count 308 MPV 8.7 L Immature Gran % (Auto) 0.3 Neut % (Auto) 77.9 H Lymph % (Auto) 12.1 L [place] % (Auto) 7.6 Eos % (Auto) 1.9 Baso % (Auto) 0.2 Lymph # (Auto) 1.2 [place] # (Auto) 0.8 Eos # (Auto) 0.2 Baso # (Auto) 0.0 Abs Immat Gran (auto) 0.03 Absolute Neuts (auto) 7.8 Absolute Nucleated RBC 0.000 Nucleated RBC % (auto) 0.0 Anion Gap Estim Creat Clear Calc Estimated GFR Random Glucose Calcium COVID-19 (IMELDA) Negative COVID-19 Clin Com See Note Influenza Type A (DAVY) Negative Influenza Type B (DAVY) Negative Influenza A & B Note See Note 11/28/21 03:26 MCV MCH MCHC RDW Plt Count MPV Immature Gran % (Auto) Neut % (Auto) Lymph % (Auto) [place] % (Auto) Eos % (Auto) Baso % (Auto) Lymph # (Auto) [place] # (Auto) Eos # (Auto) Baso # (Auto) Abs Immat Gran (auto) Absolute Neuts (auto) Absolute Nucleated RBC Nucleated RBC % (auto) Anion Gap 15 Estim Creat Clear Calc 104.7 Estimated GFR > 60 Random Glucose 84 Calcium 9.6 COVID-19 (IMELDA) COVID-19 Clin Com Influenza Type A (DAVY) Influenza Type B (DAVY) Influenza A & B Note Imaging Radiologist's Impressions: Impressions Chest X-Ray 11/28/21 00:35 IMPRESSION: Right upper lobe collapse which is new from the prior exam. This may relate to mucous plugging with postobstructive atelectasis. Consider pulmonary toilet and repeat radiographs after treatment. If persistent, CT may be indicated to exclude centrally obstructing mass. Assessment and Plan (1) Collapse of right lung: Status: Acute (2) Asthma exacerbation: Status: Acute Plan 21-year-old female with past medical history of asthma presents to the hospital with chest tightness, and wheezing found to have asthma exacerbation as well as collapse of right lung # right lung collapse - likely secondary to mucous plugging - no evidence of infection - afebrile, no leukocytosis, no evidence of pneumonia chest x-ray - will consult pulmonology - monitor respiratory status, currently has no hypoxia # asthma exacerbation - dyspnea, wheezing, cough - will treat with Solu-Medrol, DuoNeb p.r.n. as well as scheduled DVT prophylaxis: Early ambulation Quality Stroke Does the patient have a stroke diagnosis?: No VTE Prior VTE?: No VTE Risk Level:: Medical - low VTE Device Contraindication: Treatment Not Indicated VTE Drug Contraindication: Treatment Not Indicated
[2021-11-28 06:32] LABS: Anion Gap 18 (12-20); Blood Urea Nitrogen 6 mg/dL (9-16); Calcium 9.5 mg/dL (8.4-10.2); Carbon Dioxide 19 mmol/L (22-29); Chloride 105 mmol/L (96-108); Creatinine Clr Calc Pharmacy 107.8; Estimated Glomerular Filt Rate > 60; Glucose Random 112 mg/dL (60-115); Potassium 4.1 mmol/L (3.3-5.1); Sodium 138 mmol/L (135-145)
[2021-11-28 06:38] LABS: Basophils Percent Auto 0.1 % (0-2); Eosinophils Percent Auto 0.4 % (0-4); Hemoglobin 15.7 g/dl (12.0-16.0); Imm Gran Abs Auto 0.03 X10*3/uL (0.00-0.03); Imm Gran Pct Auto 0.4 % (0.0-0.4); Lymphocytes Absolute Auto 0.6 X10*3/uL (1.2-4.9); Lymphocytes Percent Auto 7.3 % (20-40); MANUAL DIFF FLAG SCAN; Mean Corpuscular HGB Conc 34.1 g/dl (31.0-35.0); Mean Corpuscular Hemoglobin 30.1 pg (27.0-33.0); Mean Corpuscular Volume 88.1 fL (80.0-98.0); Monocytes Absolute Auto 0.1 X10*3/uL (0.1-1.2); Monocytes Percent Auto 1.6 % (2-11); Neutrophils Absolute Auto 7.2 x10*3/uL (2.0-8.3); Neutrophils Percent Auto 90.2 % (45-73); Platelet Count 318 X10*3/uL (160-400); Red Blood Count 5.22 X10*6/uL (4.20-5.50); Red Cell Distribution Width 12.3 % (11.0-16.0); SCAN SMEAR FLAG 1
[2021-11-28] MEDS: methylPREDNISolone Sod Succ 40 MG/ML VIAL IVPUSH ×3 (06:55→20:37)
[2021-11-28 07:14] LABS: SLIDE REVIEW VERIFIED
--- NOTE | 2021-11-28 07:59 | PHA.MEDREC ---
Pharmacy Consult ? Medication Reconciliation Pharmacy has completed the medication reconciliation. Patient reports only using Flovent and Albuterol. Reports she was using powder inhaler when she was pregant and it worked better but she unsure if it was due to her being . It is possible they put her on the Flovent Diskus for a little. Mignon Grayson, KoryD
--- NOTE | 2021-11-28 08:55 | MHC.CM.PN ---
PATIENT LIVES WITH FAMILY AND HER OGK-HAPF-XIN SON. SHE IS INDEPENDENT. CAR IS IN LOT AND SHE PLANS TO DRIVE SELF HOME. SHE HAS HAD TWO COVID VACCINES AND DID HAVE COVID-19. SHE WILL CONSIDER ASSIGNING HCP AGENT(S). RILEY 11/28 IN MEDICAL RECORDS BIN
[2021-11-28] MEDS: 0.9 % Sodium Chloride Flush 3 ML SYRINGE IVFLUSH ×2 (09:02→20:37)
--- NOTE | 2021-11-28 09:06 | PC.NURSE ---
a/o x 3 no sob/ayde noted lungs - diminshed all lobes, speaks in full sentences. 02 sat 90-92% on r/a. pt placed on 2l/m n/c
--- NOTE | 2021-11-28 09:51 | PM.CNPUL ---
History of Present Illness History of Present Illness Consult date: 11/28/21 Chief complaint: Mucous plugging Narrative: This is a pulmonary consultation. The patient is a 21-year-old female with past medical history of asthma presents to the hospital with complaints of shortness of breath, chest tightness, as well as wheezing for the past 2 days.? Patient reports that she had significant severe chest tightness in the mid center of her chest, nonradiating, constant, 8/10, with no relieving or exacerbating factors that she has been experiencing for the past 2 days and it got worse today therefore she came to the hospital.? She reports a cough for the past few days, wheezing, no fever or chills, reports that her asthma is generally well controlled.? She smokes about few cigarettes a week.? She reports no recent upper respiratory infection, no recent travel or sick contacts. The patient did have a chest x-ray demonstrating a new right upper lobe collapse. She was placed on oxygen. She was also placed on nebulized therapy. She was given Mucinex. She still bringing up some yellow sputum. Thick and difficult to expectorate. Current the patient is not in any distress. I did provide her with an Acapella valve. The patient will start CPT therapy. She was start nebulized therapies more regularly as well to help her clear the mucus. She will also start antibiotics. I am hopeful that she can clear the mucus obstruction by herself. Otherwise if she is no better will plan to do a bronchoscopy by Friday. If her conditions worsen suddenly then will have to undergo a therapeutic interventions sooner. Review of Systems Review of Systems: Constitutional : No Weight loss, No Fever, No Chills, No Night Sweats, No Fatigue, No Malaise ENT/Mouth : No Hearing loss, No Ear Pain, No Nasal Congestion, No Sinus Pain, No Hoarseness, No sore throat, No Rhinorrhea, No Swallowing Difficulty Eyes: No Eye Pain, No Swelling, No Redness, No Foreign Body, No Discharge, No Vision Changes Cardiovascular : No Chest Pain, complaining of chest tightness no palpitations, no orthopnea Respiratory : Complaining of cough, wheezing, chest tightness with respirations Gastrointestinal : No Nausea, No Vomiting, No Diarrhea, No Constipation, No abdominal Pain, No Hematochezia, No Melena Genitourinary : no irregular bleeding, No Dysuria, No Urinary Frequency, No Hematuria, No Urinary Incontinence, No Urgency, No Flank Pain, No Urinary Flow Changes, No Hesitancy Musculoskeletal : No joint pain, No Myalgias, No Joint Swelling Skin : No Skin Lesions, No rash Neuro : No Weakness, No Numbness, No Paresthesias, No Loss of Consciousness, No Dizziness, No Headache Psych : No Anxiety/Panic, No Depression, No SI/HI/AH/VH, No Social Issues, Heme/Lymph: No Bruising, No Bleeding,No Lymphadenopathy Endocrine : No Polyuria, No Polydipsia, No Temperature Intolerance [facility] Past Medical History Medical History Asthma Family History Family History (Updated 11/28/21 @ 06:20 by Dallin Campbell MD) Mother Hypertension Surgical History Surgical History No pertinent past surgical history Social History Social History Household Members: Other Household Members Other:: Home with mother Housing: House Do you presently have visiting nurse or other home services: No Unable to assess alcohol history related to: Unknown Alcohol intake: current Alcohol intake frequency: holidays/special occasions only Alcohol type: hard liquor Patient Tobacco Use Status: Never used Tobacco Use of substances other than those prescribed or required for medical reasons: Yes Substance Use Type: Marijuana Substance Use Frequency: Occasionally Advance Directives: No Advance Directives Information Provided: Yes Patient : No service: No Current occupational status: employed Meds Allergies Allergy/AdvReac Type Severity Reaction Status Date / Time No Known Allergies Allergy Unverified 06/17/21 05:20 Active Medications: Current Medications Acetaminophen (Acetaminophen 325 Mg Tablet) 650 mg PO Q6H PRN PRN Reason: Pain, Mild (Pain Scale 1-3) Albuterol/Ipratropium (Albuterol/Iprat 2.5/0.5mg 3 Ml Ampul.Neb) 3 ml INHALE RQ4H PRN PRN Reason: Shortness of Breath/Wheezing Albuterol/Ipratropium (Albuterol/Iprat 2.5/0.5mg 3 Ml Ampul.Neb) 3 ml INHALE RQ4H WHILE AWAKE JANETTE Last Admin: 11/28/21 08:22 Dose: Not Given Docusate Sodium (Docusate Sodium 100 Mg Capsule) 100 mg PO DAILY PRN PRN Reason: Constipation Guaifenesin (Guaifenesin La 600 Mg Tab.Er.12h) 1,200 mg PO BID [facility] Methylprednisolone Sodium Succinate (Methylprednisolone Sod Succ 40 Mg/Ml Vial) 40 mg IVPUSH TID [facility] Ondansetron HCl (Ondansetron Hcl 4 Mg/2 Ml Vial) 4 mg IVPUSH Q8H PRN PRN Reason: Nausea and Vomiting Sodium Chloride (0.9 % Sodium Chloride Flush 3 Ml Syringe) 3 ml IVFLUSH QSHIFT [facility] Last Admin: 11/28/21 09:02 Dose: 3 ml Home Medications Medication Instructions Recorded Confirmed Last Taken Type fluticasone propionate 44 2 puff PO BID 11/28/21 11/28/21 Unknown History mcg/actuation HFA aerosol inhaler (Flovent HFA) Physical Exam Vital Signs: Vital Signs: Last Vital Signs Temp 98.2 F 11/28/21 07:07 Pulse 96 11/28/21 09:03 Resp 16 11/28/21 09:03 BP 128/77 11/28/21 09:03 Pulse Ox 91 L 11/28/21 09:03 O2 Del Method 11/28/21 09:03 BMI result Body Mass Index 27.1 Appearance: Alert. Oriented X3. No acute distress. Head: Normal external exam. Normocephalic. Atraumatic. No Serna signs noted. No raccoon eyes noted Eyes: PERRLA. EOMI. Conjunctiva and sclera normal. Eyelids normal. ENT: TM's Normal. Pharynx normal. Uvula midline. Moist mucous membranes. No trismus noted. No drooling noted. No muffled voice noted. Neck: Normal inspection. Neck supple. FROM. No adenopathy. Thyroid Normal. No meningeal signs. No neck mass noted. CVS: Normal heart rate and rhythm. Heart sound normal. No murmurs noted. Pulses normal throughout. Respiratory: No respiratory distress. Painless inspiration. Breath sounds normal. + wheezes/rales/rhonchi noted. Chest nontender. No accessory muscle usage noted or decreased air movement noted. Abdomen: Soft and nontender. Bowel sounds normal in all 4 quadrants. No distention noted. No organomegaly noted. No visible injury noted. Back: No CVA tenderness. Full range of motion noted. Skin: Skin warm and dry. Normal skin color. Normal skin turgor. No rashes/lesions/lacerations noted. Extremities: No lower extremity edema. Extremities exhibit normal range of motion. Extremities nontender. Neuro: Oriented X 3. Cranial nerve exam: II-XII are grossly intact No motor deficit. No sensory deficit. Reflexes normal. Results Laboratory Findings CBC and BMP: 11/28/21 06:01 11/28/21 06:01 Abnormal lab findings: Abnormal Labs 11/28/21 11/28/21 11/28/21 03:25 03:26 06:01 MPV 8.7 L 9.0 L Neut % (Auto) 77.9 H 90.2 H Lymph % (Auto) 12.1 L 7.3 L [place] % (Auto) 1.6 L Lymph # (Auto) 0.6 L Carbon Dioxide BUN 6 L D 11/28/21 06:01 MPV Neut % (Auto) Lymph % (Auto) [place] % (Auto) Lymph # (Auto) Carbon Dioxide 19 L BUN 6 L Assessment and Plan (1) Collapse of right lung: Status: Acute (2) Asthma exacerbation: Status: Acute Plan Increase Solu-Medrol 3 times a day Start Levaquin CPT with flutter valve repeat CXR in AM, if abnormal CT chest If no better plan for bronchoscopy Friday Procedures Date of Service Date of Service: 11/28/21
--- NOTE | 2021-11-28 10:05 | PC.NURSE ---
Patient to overflow unit, on 2l o2, tolerating well. talking in full sentences, denies pain at this time
[2021-11-28] MEDS: levoFLOXacin 500 MG TABLET PO (11:20)
[2021-11-28] MEDS: guaiFENesin LA 600 MG TAB.ER.12H 1200 MG PO ×2 (12:04→20:36)
[2021-11-28] MEDS: Albuterol/Iprat 2.5/0.5MG 3 ML AMPUL.NEB INHALE ×2 (12:07→20:26)
[2021-11-28] MEDS: guaiFENesin LA 600 MG TAB.ER.12H PO (13:34)
--- NOTE | 2021-11-28 14:44 | PM.EVENT ---
Event Note Date of Service: 11/28/21 Event Note: history and physical examination and plan reviewed patient seen and examined in observation unit patient feels better since admit, coughing up light yellow phlegm is still complaining of mid chest discomfort examination no distress, no use of accessory muscles. assessment and plan right upper lobe lung collapse acute asthma exacerbation continue current treatment, with scheduled and as needed updraft, IV steroids, IV Levaquin, chest PT with flutter valve and expectorant, reviewed pulmonary consult, repeat chest x-ray at a.m. if patient has no significant improvement then bronchoscopy on Friday and sooner if patient condition worsens.
[2021-11-28] MEDS: Benzonatate 100 MG CAPSULE PO (15:22)
[2021-11-29] VITALS (9 sets, daily range): BP systolic 124–158; BP diastolic 73–90; PULSE 70–115; RESP 17–20; TEMP 35.9–37.4; O2SAT 90–99; BMI 27.1
[2021-11-29] MEDS: Albuterol/Iprat 2.5/0.5MG 3 ML AMPUL.NEB INHALE ×4 (07:52→20:23)
--- NOTE | 2021-11-29 09:06 | MHC.CLN ---
RE: CONSULT SEE FULL CLINICAL NUTRITION ASSESSMENT
[2021-11-29] MEDS: guaiFENesin LA 600 MG TAB.ER.12H 1200 MG PO ×2 (09:35→20:43)
[2021-11-29] MEDS: Benzonatate 100 MG CAPSULE PO (09:35)
[2021-11-29] MEDS: methylPREDNISolone Sod Succ 40 MG/ML VIAL IVPUSH ×3 (09:35→20:42)
[2021-11-29] MEDS: levoFLOXacin 500 MG TABLET PO (09:35)
[2021-11-29] MEDS: 0.9 % Sodium Chloride Flush 3 ML SYRINGE IVFLUSH ×3 (09:36→20:43)
--- NOTE | 2021-11-29 11:44 | HO.PM.IMPN ---
Subjective Subjective Date of Service: 11/29/21 Interval History: feels better denies worsening cough, feels short of breath with ambulation, chest x-ray from this morning showed increasing right upper lobe atelectasis and consolidation, patient denies fever chills, oxygenation remains stable. Review of Systems [employer] no headache no dizziness general no fever no chills GI no nausea, no vomiting, no diarrhea skin no rash Review of Systems: Yes all other systems are reviewed and are negative Physical Exam Vital Signs: Vital Signs: Last Vital Signs Temp 97.5 F 11/29/21 11:26 Pulse 81 11/29/21 11:26 Resp 18 11/29/21 11:26 BP 158/79 H 11/29/21 11:26 Pulse Ox 95 11/29/21 11:26 O2 Del Method 11/29/21 11:26 O2 Flow Rate 2 11/28/21 23:33 BMI result Body Mass Index 27.1 Const: Other: General awake alert x3, no acute distress. Neck supple, no JVD. CVS regular rate rhythm, Respiratory lungs diminished breath sound, rhonchi. Gastrointestinal abdomen soft, nontender, bowel sounds audible Extremities no edema. Neuro nonfocal Skin no rash psych appropriate affect Objective Data Active Medications Acetaminophen (Acetaminophen 325 Mg Tablet) 650 mg PO Q6H PRN PRN Reason: Pain, Mild (Pain Scale 1-3) Albuterol/Ipratropium (Albuterol/Iprat 2.5/0.5mg 3 Ml Ampul.Neb) 3 ml INHALE RQ4H PRN PRN Reason: Shortness of Breath/Wheezing Albuterol/Ipratropium (Albuterol/Iprat 2.5/0.5mg 3 Ml Ampul.Neb) 3 ml INHALE RQ4H WHILE AWAKE [facility] Last Admin: 11/29/21 11:11 Dose: 3 ml Documented By: OLYA Benzonatate (Benzonatate 100 Mg Capsule) 100 mg PO TID PRN PRN Reason: Cough Last Admin: 11/29/21 09:35 Dose: 100 mg Documented By: COTEMA Docusate Sodium (Docusate Sodium 100 Mg Capsule) 100 mg PO DAILY PRN PRN Reason: Constipation Guaifenesin (Guaifenesin [place] 600 Mg Tab.Er.12h) 1,200 mg PO BID [facility] Last Admin: 11/29/21 09:35 Dose: 1,200 mg Documented By: COTEMA Levofloxacin (Levofloxacin 500 Mg Tablet) 500 mg PO Q24H [facility] Last Admin: 11/29/21 09:35 Dose: 500 mg Documented By: COTEMA Methylprednisolone Sodium Succinate (Methylprednisolone Sod Succ 40 Mg/Ml Vial) 40 mg IVPUSH TID [facility] Last Admin: 11/29/21 09:35 Dose: 40 mg Documented By: COTEMA Ondansetron HCl (Ondansetron Hcl 4 Mg/2 Ml Vial) 4 mg IVPUSH Q8H PRN PRN Reason: Nausea and Vomiting Sodium Chloride (0.9 % Sodium Chloride Flush 3 Ml Syringe) 3 ml IVFLUSH QSHIFT [facility] Last Admin: 11/29/21 09:36 Dose: 3 ml Documented By: STEPHAN Labs CBC & Chem 7: 11/28/21 06:01 11/28/21 06:01 Assessment and Plan (1) Collapse of right lung: Status: Acute (2) Asthma exacerbation: Status: Acute Plan 21-year-old female with past medical history of asthma presents to the hospital with chest tightness, and wheezing found to have asthma exacerbation as well as collapse of right lung # right lung collapse - likely secondary to mucous plugging, repeat chest x-ray from this morning showed worsening right upper lobe atelectasis and consolidation continue IV steroids, updraft treatment IV Levaquin and expectorant continue CPT with flutter valve monitor respiratory status, currently has no hypoxia patient scheduled for bronchoscopy for tomorrow keep her NPO after midnight case discussed with pulmonology # asthma exacerbation - no worsening symptoms continue, IV steroids updrafts and supportive care DVT prophylaxis:? Early ambulation patient need continued inpatient hospitalization due to worsening right upper lobe atelectasis and consolidation due to mucus plugging schedule for bronchoscopy at a.m. Quality Stroke Does the patient have a stroke diagnosis?: No VTE Prior VTE?: No VTE Risk Level:: Medical - low VTE Device Contraindication: Treatment Not Indicated VTE Drug Contraindication: Treatment Not Indicated
--- NOTE | 2021-11-29 12:49 | P.PNPL_ITS ---
Subjective Subjective Date of Service: 11/29/21 Interval history: The patient was seen on exam. She is feeling better. Her oxygenation is better. She has been working with the Acapella valve to try to clear mucus. Although she has a hard time clearing any phlegm. Her breathing has been better. I did increase his Solu-Medrol yesterday. I did review her chest x-ray with her. Appears that the right upper lobe collapse is still present and more dense. Therefore she understands that she is going to stay NPO after midnight and will plan to do a bronchoscopy for both diagnostic and therapeutic reasons tomorrow at noon. Objective Data Labs CBC & Chem 7: 11/28/21 06:01 11/28/21 06:01 Review of Systems Constitutional: Denies fever(s) Denies sinus pain Cardiovascular: Denies chest pain Respiratory: Reports chest congestion, Reports cough and Denies hemoptysis Gastrointestinal: Reports no additional gastrointestinal complaints Musculoskeletal: Reports no additional musculoskeletal complaints Physical Exam Vital Signs: Vital Signs: Last Vital Signs Temp 97.5 F 11/29/21 11:26 Pulse 81 11/29/21 11:26 Resp 18 11/29/21 11:26 BP 158/79 H 11/29/21 11:26 Pulse Ox 95 11/29/21 11:26 O2 Del Method 11/29/21 11:26 O2 Flow Rate 2 11/28/21 23:33 BMI result Body Mass Index 27.1 Appearance: Alert. Oriented X3. No acute distress. Head: Normal external exam. Normocephalic. Atraumatic. No Serna signs noted. No raccoon eyes noted Eyes: PERRLA. EOMI. Conjunctiva and sclera normal. Eyelids normal. ENT: TM's Normal. Pharynx normal. Uvula midline. Moist mucous membranes. No trismus noted. No drooling noted. No muffled voice noted. Neck: Normal inspection. Neck supple. FROM. No adenopathy. Thyroid Normal. No meningeal signs. No neck mass noted. CVS: Normal heart rate and rhythm. Heart sound normal. No murmurs noted. Pulses normal throughout. Respiratory: No respiratory distress. Painless inspiration. Breath sounds normal. + wheezes/rales/rhonchi noted. Chest nontender. No accessory muscle usage noted or decreased air movement noted. Abdomen: Soft and nontender. Bowel sounds normal in all 4 quadrants. No distention noted. No organomegaly noted. No visible injury noted. Back: No CVA tenderness. Full range of motion noted. Skin: Skin warm and dry. Normal skin color. Normal skin turgor. No rashes/lesions/lacerations noted. Extremities: No lower extremity edema. Extremities exhibit normal range of motion. Extremities nontender. Neuro: Oriented X 3. Cranial nerve exam: II-XII are grossly intact No motor deficit. No sensory deficit. Reflexes normal. Resp: Auscultation: diminished lung sounds Procedures Date of Service Date of Service: 11/29/21 Assessment and Plan Assessment and plan (1) Collapse of right lung: Problem details: Persistent collapse of the right upper lobe appears to be little more dense today. Patient denies any choking episodes. She did have a relatively normal chest x-ray just several months before. Need to assess for endobronchial lesions and or mucus plug or foreign bodies. Status: Acute (2) Asthma exacerbation: Status: Acute Plan Continue CPT with flutter valve Continue nebulized therapy Okay to decrease to or prednisone by tomorrow Keep NPO after midnight for bronchoscopy tomorrow for both diagnostic and the rapeutic purposes Time Spent With Patient Time: Total time spent is greater than 50% in coordination of care (as documented) at patient's floor/unit and/or counseling patient: Progress Note: Quality Stroke Does the patient have a stroke diagnosis?: No
[2021-11-29 13:23] LABS: Urine Pregnancy NEGATIVE (NEGATIVE)
[2021-11-29 13:24] LABS: UPreg QC Valid YES
--- NOTE | 2021-11-29 15:30 | MHC.CM.PN ---
NURSE REHAB SERVICES AIDE NOTE ELECTRONIC MEDICAL RECORD REVIEWED ALONG WITH CASE DISCUSSED WITH HOSPITLAIST AND STAFF NURSE . PATIENT WILL BE HAVING A THORACENTESIS TOMORROW 11/30/21 (ADMITTEING DX PER DOCUMENTSAITON ASPIRATION PNA HEROINE OVERDOSE AND GOING FOR BRONCHOSCOPY FOR REMOVAL OF MUSCUS PLUG)
--- NOTE | 2021-11-29 16:03 | MHC.CM.PN ---
NURSE STILE RIPSAW OPERATOR NOTE ELECTRONIC MEDICAL RECORD REVIEWED , CASE DISCUSSED WITH THE HOSPITIT AND SEEN BY THE SOAP INSPECTOR mauro se his note) reports her oxygenation is better, and she is getting cpt working with the acapellea flutter-valve to try to clear the myucus. iv solumedrol was increased on 11/28/21 , nebulizer trearmentas and continues to have right upper lobe lung collqps snd plans for bronschopy tomorrow discharge plan 1. patient lives with family and her one year old son, anticipate home no services . transportation she [place] [facility] [place] covid vacianted x2 and previously had covid 19 needs to complete health care proxy abd she in process of considering this chnged to inpatient status
[2021-11-30] VITALS (14 sets, daily range): BP systolic 110–163; BP diastolic 63–93; PULSE 60–105; RESP 16–57; TEMP 36.1–36.7; O2SAT 92–98; BMI 25.4
--- NOTE | 2021-11-30 09:56 | HO.ANESPROP2 ---
[facility] Active Problems Active Problems: All Active Problems (Updated 11/29/21 @ 12:53 by Will Liz MD) Collapse of right lung (Acute) Asthma exacerbation (Acute) COVID-19 (Acute) Asthma with exacerbation (Acute) Past Medical History Medical History Asthma Family History Family History Mother Hypertension Surgical History Surgical History No pertinent past surgical history History of Problems with Anesthesia: No Social History Social History Household Members: Family and Children Household Members Other:: Home with mother Housing: House Do you presently have visiting nurse or other home services: No Unable to assess alcohol history related to: Unknown Alcohol intake: current Alcohol intake frequency: holidays/special occasions only Alcohol type: hard liquor Patient Tobacco Use Status: Former Tobacco user Tobacco use type: Cigar e-Cigarette/Vaping Use: Never Used Second Hand Smoke Exposure: No Substance Use Type: Marijuana service: No Current occupational status: employed Meds Allergies Allergy/AdvReac Type Severity Reaction Status Date / Time No Known Allergies Allergy Unverified 06/17/21 05:20 Active Medications: Current Medications Acetaminophen (Acetaminophen 325 Mg Tablet) 650 mg PO Q6H PRN PRN Reason: Pain, Mild (Pain Scale 1-3) Albuterol/Ipratropium (Albuterol/Iprat 2.5/0.5mg 3 Ml Ampul.Neb) 3 ml INHALE RQ4H PRN PRN Reason: Shortness of Breath/Wheezing Albuterol/Ipratropium (Albuterol/Iprat 2.5/0.5mg 3 Ml Ampul.Neb) 3 ml INHALE RQ4H WHILE AWAKE JANETTE Last Admin: 11/30/21 07:47 Dose: Not Given Benzonatate (Benzonatate 100 Mg Capsule) 100 mg PO TID PRN PRN Reason: Cough Last Admin: 11/29/21 09:35 Dose: 100 mg Docusate Sodium (Docusate Sodium 100 Mg Capsule) 100 mg PO DAILY PRN PRN Reason: Constipation Guaifenesin (Guaifenesin La 600 Mg Tab.Er.12h) 1,200 mg PO BID [facility] Last Admin: 11/29/21 20:43 Dose: 1,200 mg Levofloxacin (Levofloxacin 500 Mg Tablet) 500 mg PO Q24H [facility] Last Admin: 11/29/21 09:35 Dose: 500 mg Methylprednisolone Sodium Succinate (Methylprednisolone Sod Succ 40 Mg/Ml Vial) 40 mg IVPUSH TID [facility] Last Admin: 11/29/21 20:42 Dose: 40 mg Ondansetron HCl (Ondansetron Hcl 4 Mg/2 Ml Vial) 4 mg IVPUSH Q8H PRN PRN Reason: Nausea and Vomiting Sodium Chloride (0.9 % Sodium Chloride Flush 3 Ml Syringe) 3 ml IVFLUSH QSHIFT [facility] Last Admin: 11/29/21 20:43 Dose: 3 ml Home Medications Medication Instructions Recorded Confirmed Last Taken Type fluticasone propionate 44 2 puff PO BID 11/28/21 11/28/21 Unknown History mcg/actuation HFA aerosol inhaler (Flovent HFA) Exam Exam Date and Time: November 30, 2021 0956 Height,Weight and Vital Signs: Height 5 ft Weight 63 kg Last Vital Signs Temp 97.4 F 11/30/21 08:00 Pulse 79 11/30/21 08:00 Resp 18 11/30/21 08:00 BP 141/91 H 11/30/21 08:00 Pulse Ox 93 11/30/21 08:00 O2 Del Method 11/30/21 08:00 O2 Flow Rate 2 11/28/21 23:33 Pertinent Lab Results Pertinent Lab Results: Laboratory Tests 11/28/21 11/28/21 11/28/21 00:33 00:33 03:25 WBC 10.1 RBC 5.06 Hgb 15.3 Hct 44.4 MCV 87.7 MCH 30.2 MCHC 34.5 RDW 12.3 Plt Count 308 MPV 8.7 L Immature Gran % (Auto) 0.3 Neut % (Auto) 77.9 H Lymph % (Auto) 12.1 L [place] % (Auto) 7.6 Eos % (Auto) 1.9 Baso % (Auto) 0.2 Lymph # (Auto) 1.2 [place] # (Auto) 0.8 Eos # (Auto) 0.2 Baso # (Auto) 0.0 Abs Immat Gran (auto) 0.03 Absolute Neuts (auto) 7.8 Absolute Nucleated RBC 0.000 Nucleated RBC % (auto) 0.0 Smear Tech's Comments Sodium Potassium Chloride Carbon Dioxide Anion Gap BUN Creatinine Estim Creat Clear Calc Estimated GFR Random Glucose Calcium Urine Test COVID-19 (IMELDA) Negative COVID-19 [facility] Com See Note Influenza Type A (DAVY) Negative Influenza Type B (DAVY) Negative Influenza A & B Note See Note 11/28/21 11/28/21 11/28/21 03:26 06:01 06:01 WBC 8.0 RBC 5.22 Hgb 15.7 Hct 46.0 MCV 88.1 MCH 30.1 MCHC 34.1 RDW 12.3 Plt Count 318 MPV 9.0 L Immature Gran % (Auto) 0.4 Neut % (Auto) 90.2 H Lymph % (Auto) 7.3 L [place] % (Auto) 1.6 L Eos % (Auto) 0.4 Baso % (Auto) 0.1 Lymph # (Auto) 0.6 L [place] # (Auto) 0.1 Eos # (Auto) 0.0 Baso # (Auto) 0.0 Abs Immat Gran (auto) 0.03 Absolute Neuts (auto) 7.2 Absolute Nucleated RBC 0.000 Nucleated RBC % (auto) 0.0 Smear Tech's Comments VERIFIED Sodium 137 138 Potassium 4.0 4.1 Chloride 103 105 Carbon Dioxide 23 19 L Anion Gap 15 18 BUN 6 L D 6 L Creatinine 0.71 0.69 Estim Creat Clear Calc 104.7 107.8 Estimated GFR > 60 > 60 Random Glucose 84 112 Calcium 9.6 9.5 Urine Test COVID-19 (IMELDA) COVID-19 Clin Com Influenza Type A (DAVY) Influenza Type B (DAVY) Influenza A & B Note 11/29/21 Unknown WBC RBC Hgb Hct MCV MCH MCHC RDW Plt Count MPV Immature Gran % (Auto) Neut % (Auto) Lymph % (Auto) [place] % (Auto) Eos % (Auto) Baso % (Auto) Lymph # (Auto) [place] # (Auto) Eos # (Auto) Baso # (Auto) Abs Immat Gran (auto) Absolute Neuts (auto) Absolute Nucleated RBC Nucleated RBC % (auto) Smear Tech's Comments Sodium Potassium Chloride Carbon Dioxide Anion Gap BUN Creatinine Estim Creat Clear Calc Estimated GFR Random Glucose Calcium Urine Test NEGATIVE COVID-19 (IMELAD) COVID-19 Clin Com Influenza Type A (DAVY) Influenza Type B (DAVY) Influenza A & B Note Airway Mallampati Class: II TM Dist: >3cm Neck ROM: Full Loose/Missing/Broken Teeth: No Heart: RRR Lungs: coarse rhonchi throughout Assessment and Plan Assessment Anesthesia Assessment: Anesthesia Plan Discussed and Chart Reviewed Final Anesthetic Review History of Problems with Anesthesia: No NPO: Yes ASA Class: III Final Preanesthetic Review: Meds/Allgs Chart Reviewed, Consent Obtained/Reviewed and Anes Risks/Benef Reviewed Patient Risk: Intermediate Procedure Risk: Intermediate Anesthetic Plan Anesthetic Plan: GA Disposition: Standard PACU
--- NOTE | 2021-11-30 10:02 | P.CDIC_ITS ---
CDI Concurrent Query Documentation Clarification: PHYSICIAN'S DOCUMENTATION REQUEST Date of Query: 11/30/21 1003 Patient Name: Mar Meneses Admit Date: 11/28/21 Dear Doctor, Please review the following and provide your response in the progress notes. Clinical Indicators: The diagnosis of asthma was documented in the record on 11/28/21. Additional clinical indicators from the record include: Risk Factors/Clinical Indicators/Treatments Per H&P: Asthma Exacerbation CXR: pulmonary block, right upper lobe collapse Treatment: updraft, steroid, Levaquin, chest PT with flutter valve and expectorant Repeat CXR: worsening right upper lobe atelectasis and consolidation Based on the above, please clarify in the Progress Notes further specificity regarding the type and acuity of the asthma: Type: * Mild intermittent - less than 2x/week * Mild persistent - more than 2x/week but not daily * Moderate persistent - daily and may restrict physical activity * Severe persistent - throughout the day with frequent attacks, limiting activi ties * Exercise induced * Chronic obstructive asthma and indicate if with acute lower respiratory infection * Asthma with underlying COPD and indicate if with acute lower respiratory infection * Other ? please specify * Unable to determine Acuity: * With acute exacerbation * With status asthmaticus * Uncomplicated * Unable to determine Use of terms such as suspected, likely, concern for, or probable (associated with a specific diagnosis that is being evaluated, monitored, or treated as if it exists) are acceptable and can be coded in the inpatient setting, when documented at the time of discharge. Thank you, Heena Boyer RN Extension: [phone] Please use your independent medical judgment in providing your response. THIS QUERY IS PART OF THE PERMANENT MEDICAL RECORD Provider Response: Other Other Diagnosis: mild persistent
--- NOTE | 2021-11-30 10:02 | MHC.CDI.CONC ---
CDI Concurrent Query Documentation Clarification: PHYSICIAN'S DOCUMENTATION REQUEST Date of Query: 11/30/21 1003 Patient Name: Mar Meneses Admit Date: 11/28/21 Dear Doctor, Please review the following and provide your response in the progress notes. Clinical Indicators: The diagnosis of asthma was documented in the record on 11/28/21. Additional clinical indicators from the record include: Risk Factors/Clinical Indicators/Treatments Per H&P: Asthma Exacerbation CXR: pulmonary block, right upper lobe collapse Treatment: updraft, steroid, Levaquin, chest PT with flutter valve and expectorant Repeat CXR: worsening right upper lobe atelectasis and consolidation Based on the above, please clarify in the Progress Notes further specificity regarding the type and acuity of the asthma: Type: Mild intermittent - less than 2x/week Mild persistent - more than 2x/week but not daily Moderate persistent - daily and may restrict physical activity Severe persistent - throughout the day with frequent attacks, limiting activities Exercise induced Chronic obstructive asthma and indicate if with acute lower respiratory infection Asthma with underlying COPD and indicate if with acute lower respiratory infection Other ? please specify Unable to determine Acuity: With acute exacerbation With status asthmaticus Uncomplicated Unable to determine Use of terms such as suspected, likely, concern for, or probable (associated with a specific diagnosis that is being evaluated, monitored, or treated as if it exists) are acceptable and can be coded in the inpatient setting, when documented at the time of discharge. Thank you, Heena Boyer RN Extension: [phone] Please use your independent medical judgment in providing your response. THIS QUERY IS PART OF THE PERMANENT MEDICAL RECORD Provider Response: Other Other Diagnosis: mild persistent
[2021-11-30] MEDS: methylPREDNISolone Sod Succ 40 MG/ML VIAL IVPUSH ×3 (10:14→20:02)
[2021-11-30] MEDS: 0.9 % Sodium Chloride Flush 3 ML SYRINGE IVFLUSH ×3 (10:14→20:02)
[2021-11-30] MEDS: Albuterol/Iprat 2.5/0.5MG 3 ML AMPUL.NEB INHALE (10:35)
--- NOTE | 2021-11-30 13:38 | MHC.CM.PN ---
nurse case mnagement note electroinc medical record reviewed william limon with case discussed with the hospitlathad t patient will be having her bronchoscopy today and based on findins will further determine plan of care and nay chnages in discharge needs. discharge plan initial ; 1. patient lives with family and her one year old son, anticipate home no services . transportation she [place] her [place] [facility] [place] covid vacianted x2 and previously had covid 19 needs to complete health care proxy abd she in process of considering this chnged to inpatient status
[2021-11-30] MEDS: levoFLOXacin 500 MG TABLET PO (14:10)
--- NOTE | 2021-11-30 14:15 | P.PNIM_ITS ---
Subjective Subjective Date of Service: 11/30/21 Interval History: patient feels anxious regarding bronchoscopy, feeling better less short of breath, no fevers, no chills no other acute overnight event. 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 awake leelee rt x3, no acute di stress.? Neck? sup ple, no JVD. CVS? regular rate rhyth m, Respiratory philipp gs? diminished kobi ath sound, expirat ory rhonchi. Gastr ointestinal abdome n soft, nontender, bowel sounds romina ble Extremities no edema. Neuro nonf ocal Skin no rash psych appropriate affect Objective Data Active Medications Acetaminophen (Acetaminophen 325 Mg Tablet) 650 mg PO Q6H PRN PRN Reason: Pain, Mild (Pain Scale 1-3) Acetaminophen (Acetaminophen 325 Mg Tablet) 650 mg PO ONCE PRN PRN Reason: Pain, Mild (Pain Scale 1-3) Albuterol Sulfate (Albuterol Sulfate (0.083%) 2.5 Mg/3 Ml Vial.Neb) 2.5 mg INHALE ONCE PRN PRN Reason: Wheezing Albuterol/Ipratropium (Albuterol/Iprat 2.5/0.5mg 3 Ml Ampul.Neb) 3 ml INHALE RQ4H PRN PRN Reason: Shortness of Breath/Wheezing Albuterol/Ipratropium (Albuterol/Iprat 2.5/0.5mg 3 Ml Ampul.Neb) 3 ml INHALE RQ4H WHILE AWAKE [facility] Last Admin: 11/30/21 10:35 Dose: 3 ml Documented By: ALISHA Benzonatate (Benzonatate 100 Mg Capsule) 100 mg PO TID PRN PRN Reason: Cough Last Admin: 11/29/21 09:35 Dose: 100 mg Documented By: COTEMA Docusate Sodium (Docusate Sodium 100 Mg Capsule) 100 mg PO DAILY PRN PRN Reason: Constipation Guaifenesin (Guaifenesin La 600 Mg Tab.Er.12h) 1,200 mg PO BID [facility] Last Admin: 11/30/21 10:09 Dose: Not Given Documented By: COTEMA Non-Admin Reason: NPO Promethazine HCl 6.25 mg/ (Sodium Chloride) 50.25 mls @ 201 mls/hr IV ONCE PRN PRN Reason: Nausea and Vomiting Levofloxacin (Levofloxacin 500 Mg Tablet) 500 mg PO Q24H [facility] Last Admin: 11/30/21 14:10 Dose: 500 mg Documented By: COTEMA Methylprednisolone Sodium Succinate (Methylprednisolone Sod Succ 40 Mg/Ml Vial) 40 mg IVPUSH TID [facility] Last Admin: 11/30/21 14:10 Dose: 40 mg Documented By: COTEMA Ondansetron HCl (Ondansetron Hcl 4 Mg/2 Ml Vial) 4 mg IVPUSH Q8H PRN PRN Reason: Nausea and Vomiting Ondansetron HCl (Ondansetron Hcl 4 Mg/2 Ml Vial) 4 mg IVPUSH ONCE PRN PRN Reason: Nausea and Vomiting Sodium Chloride (0.9 % Sodium Chloride Flush 3 Ml Syringe) 3 ml IVFLUSH QSHIFT [facility] Last Admin: 11/30/21 14:10 Dose: 3 ml Documented By: STEPHAN Labs CBC & Chem 7: 11/28/21 06:01 11/28/21 06:01 Assessment and Plan (1) Collapse of right lung: Status: Acute (2) Asthma exacerbation: Status: Acute Plan 21-year-old female with past medical history of asthma presents to the hospital with chest tightness, and wheezing found to have asthma exacerbation as well as collapse of right lung #right lung collapse feeling better less short of breath likely secondary to mucous plugging, repeat chest x-ray from 11/29 showed worse benjamin right upper lobe atelectasis, and consolidation. continue IV steroids, updraft treatment, IV Levaquin and expectorant. continue CPT with flutter valve. monitor respiratory status, currently has no hypoxia. patient scheduled for bronchoscopy today, NPO , explained bronchoscopy procedure to patient, follow-up with pulmonology # asthma exacerbation with underlying history of mild persistent asthma no worsening symptoms continue, IV steroids updrafts and supportive care DVT prophylaxis:? Early ambulation patient need continued inpatient hospitalization due to worsening right upper lobe atelectasis and consolidation due to mucus plugging schedule for bronchoscopy at a.m. Quality Stroke Does the patient have a stroke diagnosis?: No VTE Prior VTE?: No VTE Risk Level:: Medical - low VTE Device Contraindication: Treatment Not Indicated VTE Drug Contraindication: Treatment Not Indicated
[2021-11-30] MEDS: guaiFENesin LA 600 MG TAB.ER.12H 1200 MG PO (20:02)
[2021-12-01] VITALS (8 sets, daily range): BP systolic 112–139; BP diastolic 58–75; PULSE 54–88; RESP 16–18; TEMP 36.1–37.2; O2SAT 94–99
[2021-12-01] MEDS: 0.9 % Sodium Chloride Flush 3 ML SYRINGE IVFLUSH ×3 (09:19→19:29)
[2021-12-01] MEDS: guaiFENesin LA 600 MG TAB.ER.12H 1200 MG PO ×2 (09:19→19:26)
[2021-12-01] MEDS: methylPREDNISolone Sod Succ 40 MG/ML VIAL IVPUSH (09:19)
[2021-12-01] MEDS: levoFLOXacin 500 MG TABLET PO (09:19)
[2021-12-01] MEDS: Benzonatate 100 MG CAPSULE PO ×2 (09:25→19:28)
[2021-12-01] MEDS: Albuterol/Iprat 2.5/0.5MG 3 ML AMPUL.NEB INHALE ×2 (09:46→19:48)
--- NOTE | 2021-12-01 11:11 | P.PNIM_ITS ---
Subjective Subjective Date of Service: 12/01/21 Interval History: complaining of shortness of breath, denies fever chills, oxygenation stable on room air 96%, no acute issues overnight. Review of Systems CVS no chest pain, no palpitation GI no nausea, no vomiting no urinary burning, no frequency Review of Systems: Yes all other systems are reviewed and are negative Physical Exam Vital Signs: Vital Signs: Last Vital Signs Temp 97.0 F 12/01/21 07:46 Pulse 88 12/01/21 09:47 Resp 18 12/01/21 09:47 BP 112/75 12/01/21 07:46 Pulse Ox 96 12/01/21 07:46 O2 Del Method 12/01/21 07:46 O2 Flow Rate 8 11/30/21 12:56 FiO2 40 11/30/21 12:56 BMI result Body Mass Index 25.4 Const: Other: General? awake alert x3, no acute distress.? Neck? supple, no JVD. CVS?regular rate rhythm, Respiratory lungs? bilateral expiratory wheeze, no use of accessory muscles Gastrointestinal abdomen soft, nontender,?bowel sounds audible Extremities no?edema. Neuro nonfocal Skin no rash psych appropriate affect Objective Data Active Medications Acetaminophen (Acetaminophen 325 Mg Tablet) 650 mg PO Q6H PRN PRN Reason: Pain, Mild (Pain Scale 1-3) Acetaminophen (Acetaminophen 325 Mg Tablet) 650 mg PO ONCE PRN PRN Reason: Pain, Mild (Pain Scale 1-3) Albuterol Sulfate (Albuterol Sulfate (0.083%) 2.5 Mg/3 Ml Vial.Neb) 2.5 mg INHALE ONCE PRN PRN Reason: Wheezing Albuterol/Ipratropium (Albuterol/Iprat 2.5/0.5mg 3 Ml Ampul.Neb) 3 ml INHALE RQ4H PRN PRN Reason: Shortness of Breath/Wheezing Albuterol/Ipratropium (Albuterol/Iprat 2.5/0.5mg 3 Ml Ampul.Neb) 3 ml INHALE RQ4H WHILE AWAKE JANETTE Last Admin: 12/01/21 09:46 Dose: 3 ml Documented By: ALISHA Benzonatate (Benzonatate 100 Mg Capsule) 100 mg PO TID PRN PRN Reason: Cough Last Admin: 12/01/21 09:25 Dose: 100 mg Documented By: COTEMA Docusate Sodium (Docusate Sodium 100 Mg Capsule) 100 mg PO DAILY PRN PRN Reason: Constipation Guaifenesin (Guaifenesin La 600 Mg Tab.Er.12h) 1,200 mg PO BID [facility] Last Admin: 12/01/21 09:19 Dose: 1,200 mg Documented By: COTEMA Promethazine HCl 6.25 mg/ (Sodium Chloride) 50.25 mls @ 201 mls/hr IV ONCE PRN PRN Reason: Nausea and Vomiting Levofloxacin (Levofloxacin 500 Mg Tablet) 500 mg PO Q24H [facility] Last Admin: 12/01/21 09:19 Dose: 500 mg Documented By: COTEMA Methylprednisolone Sodium Succinate (Methylprednisolone Sod Succ 40 Mg/Ml Vial) 40 mg IVPUSH TID [facility] Last Admin: 12/01/21 09:19 Dose: 40 mg Documented By: COTEMA Ondansetron HCl (Ondansetron Hcl 4 Mg/2 Ml Vial) 4 mg IVPUSH Q8H PRN PRN Reason: Nausea and Vomiting Ondansetron HCl (Ondansetron Hcl 4 Mg/2 Ml Vial) 4 mg IVPUSH ONCE PRN PRN Reason: Nausea and Vomiting Sodium Chloride (0.9 % Sodium Chloride Flush 3 Ml Syringe) 3 ml IVFLUSH QSHIFT [facility] Last Admin: 12/01/21 09:19 Dose: 3 ml Documented By: STEPHAN Labs CBC & Chem 7: 11/28/21 06:01 11/28/21 06:01 Microbiology Microbiology Results: Microbiology 11/30/21 Unknown Gram Stain - Final Bronchial Washings 11/30/21 Unknown Gram Stain - Final Bronchial Brushings Assessment and Plan (1) Collapse of right lung: Status: Acute (2) Asthma exacerbation: Status: Acute Plan 21-year-old female with past medical history of asthma presents to the hospital with chest tightness, and wheezing found to have asthma exacerbation as well as collapse of right lung #right lung collapse secondary to mucus plugging and spasm shortness of breath this morning , since did not receive updraft since yesterday repeat chest x-ray from 11/29 showed worsening right upper lobe atelectasis, and consolidation. on IV steroids, updraft treatment, IV Levaquin day 3/5 and expectorant, continue CPT with flutter valve. no hypoxia. status post bronchoscopy on November 30 noted to have significant mucus plugs throughout right lung and bronchospasm status post bronchial lavage case discussed with Dr. Liz he recommend to continue above treatment today and if patient is stable will discharge her home on by mouth steroid for 3 days 40 mg followed by 30 and 20 mg # asthma exacerbation with underlying history of mild persistent asthma IV steroids, updrafts and supportive care patient has nebulizer and DuoNeb updraft at home DVT prophylaxis:? Early ambulation patient need continued inpatient hospitalization due to worsening shortness of breath on IV steroid and updraft treatment Quality Stroke Does the patient have a stroke diagnosis?: No VTE Prior VTE?: No VTE Risk Level:: Medical - low VTE Device Contraindication: Treatment Not Indicated VTE Drug Contraindication: Treatment Not Indicated
--- NOTE | 2021-12-01 11:17 | MHC.SHP ---
Pre-Procedural Eval Section A Date of Service: 11/30/21 The patient is an INPATIENT: Yes Section B Chief Complaint: Mucous plugging Allergies: Allergies Allergy/AdvReac Type Severity Reaction Status Date / Time No Known Allergies Allergy Unverified 06/17/21 05:20 Plan I have reviewed the history and physical and performed a pertinent physical examination on my patient. No changes have occurred unless specified.
--- NOTE | 2021-12-01 11:17 | PM.OP ---
Brief Operative Note Date of Service: 11/30/21 Pre-op diagnosis: RUL lung collapse Post-op diagnosis: same Procedure: Bronchoscopy with therapeutic cleaning and brushings Surgeon: Will Liz MD Anesthesia: GLMA Was an Mental Health Program Director used for this Procedure?: No Estimated blood loss (mL): 0 Pathology: none sent Condition: stable Disposition: floor
--- NOTE | 2021-12-01 11:24 | PM.PNPUL ---
Subjective Subjective Date of Service: 12/01/21 Interval history: The patient was seen on exam. She is doing well after the bronchoscopy. Her oxygen has improved. This morning she was having some wheezing needing a treatment but overall far fumes between. Will go ahead and decrease her steroids significantly today with hopes that she can be transferred over to p.o. prednisone tomorrow and go home. She is still on levofloxacin which she should continue for 5 days total. The patient will be set up to follow up as an outpatient. Objective Data Labs CBC & Chem 7: 11/28/21 06:01 11/28/21 06:01 Microbiology Microbiology Results: Microbiology 11/30/21 Unknown Bronchial Washings Gram Stain - Final 11/30/21 Unknown Bronchial Brushings Gram Stain - Final Review of Systems Constitutional: Denies fever(s) Denies hoarseness Cardiovascular: Denies chest pain Respiratory: Reports cough and Reports wheezing Gastrointestinal: Reports no additional gastrointestinal complaints Musculoskeletal: Reports no additional musculoskeletal complaints Allergic/Immunologic: Reports wheezing Physical Exam Vital Signs: Vital Signs: Last Vital Signs Temp 97.0 F 12/01/21 07:46 Pulse 88 12/01/21 09:47 Resp 18 12/01/21 09:47 BP 112/75 12/01/21 07:46 Pulse Ox 96 12/01/21 07:46 O2 Del Method 12/01/21 07:46 O2 Flow Rate 8 11/30/21 12:56 FiO2 40 11/30/21 12:56 BMI result Body Mass Index 25.4 Const: Other: General? awake alert x3, no acute distress.? Neck? supple, no JVD. CVS?regular rate rhythm, Respiratory lungs: ?neg wheeze, no use of accessory muscles Gastrointestinal abdomen soft, nontender,?bowel sounds audible Extremities no?edema. Neuro nonfocal Skin no rash psych appropriate affect Procedures Date of Service Date of Service: 12/01/21 Assessment and Plan Assessment and plan (1) Asthma exacerbation: Status: Acute (2) Collapse of right lung: Status: Acute (3) Bronchitis: Status: Acute (4) Multiple tracheobronchial mucus plugs: Status: Acute Plan Decrease to Solu-Medrol once a day and hopefully prednisone tomorrow Continue with nebulized therapy with her flutter valve for CPT and mucus clearance Complete 5 days of levofloxacin and stop Awaiting microbiology and cytology from the bronchoscopy Will set up for her to follow up with Pulmonary as an outpatient Time Spent With Patient Time: Total time spent is greater than 50% in coordination of care (as documented) at patient's floor/unit and/or counseling patient: Progress Note: Quality Stroke Does the patient have a stroke diagnosis?: No
--- NOTE | 2021-12-01 12:10 | OP_ITS ---
SURGEON: Will Liz MD PREOPERATIVE DIAGNOSIS: Right upper lobe lung collapse. POSTOPERATIVE DIAGNOSIS: Right upper lobe lung collapse in addition to bronchitis and bronchomalacia. No endobronchial lesions noted. PROCEDURE PERFORMED: Bronchoscopy with therapeutic washings inclining along with brushings. ESTIMATED BLOOD LOSS: COMPLICATIONS: ANESTHESIA: LMA. ASSISTANTS: None. SPECIMENS: ASA CLASSIFICATION: 2. DESCRIPTION OF PROCEDURE: After the patient was adequately sedated, LMA in place, the flexible digital bronchoscope was inserted over the LMA to the level of the larynx. The vocal cords appeared to be normal, although they were in an abducted state likely from the anesthesia. No lesions noted. After instilling additional lidocaine of 6 mL of 2%, the bronchoscope was then navigated past the vocal cords to the level of the trachea. Tracheal mucosa appeared to be normal and the patient did have some areas of mucoid secretions that were thick within the trachea and there was some mild inflammation. After instilling additional lidocaine, the bronchoscope was then navigated to the entire tracheobronchial tree that was examined to the subsegmental level. No endobronchial lesions or masses or foreign bodies identified. However, the patient did have significant erythema of her airways, right lung more than left and also had evidence of bronchomalacia. The patient had very thick and tenacious mucus that would clog up the bronchoscope. Multiple times the bronchoscope had to be removed to be cleared of any thick mucinous secretions. Microscopic brush was introduced into the right lung and sent for microbiology. Then with normal saline, we cleared out almost all of the mucus plugs from all the segments. Again, the mucus was very tenacious and difficult to clear. After removing all the mucus plugs, we reevaluated the right upper lobe to make sure there was no any evidence of any foreign bodies or endobronchial lesions to result in the postobstructive process, but it looked to be just consistent with bronchomalacia and mucus plugs. The bronchoscope was then removed. The total endoscopic time approximately 12 minutes. The patient tolerated the procedure well. Vital signs were stable throughout the procedure. INTERPRETATION: Successful therapeutic bronchoscopy, [id number] and microscopic brushings. No evidence of any complications of bleeding. MD LUDY Wright/CASH / [phone]
--- NOTE | 2021-12-01 17:06 | HO.POSTANES ---
Post Anesthesia Evaluation Post Anesthesia Evaluation Vital Signs: Vital Signs Temp Pulse Resp BP Pulse Ox O2 Del Method 12/01/21 15:03 98.7 F 68 18 122/60 99 Room Air 12/01/21 11:42 98.2 F 68 18 126/75 97 Room Air 12/01/21 11:34 Room Air 12/01/21 09:47 88 18 12/01/21 07:46 97.0 F 64 16 112/75 96 Room Air Anesthesia: General Endotracheal-GETA Mental Status: Awake Pain Control: Satisfactory Nausea/Vomiting: None Hydration: Adequate Anesthesia-Related Issues: No Anes. Related Issues
[2021-12-02 04:00] VITALS: BP 126/60; PULSE 70; RESP 17; TEMP 36.3; O2SAT 98
[2021-12-02 07:16] VITALS: BP 146/92; PULSE 52; RESP 17; TEMP 36.1; O2SAT 98
[2021-12-02 07:20] VITALS: BP 110/68; PULSE 71; RESP 17; TEMP 36.2; O2SAT 97
[2021-12-02 07:52] VITALS: PULSE 82; RESP 16; O2SAT 98
[2021-12-02] MEDS: Albuterol/Iprat 2.5/0.5MG 3 ML AMPUL.NEB INHALE (07:52)
[2021-12-02 08:00] VITALS: RESP 17
[2021-12-02] MEDS: levoFLOXacin 500 MG TABLET PO (10:26)
[2021-12-02] MEDS: 0.9 % Sodium Chloride Flush 3 ML SYRINGE IVFLUSH (10:27)
[2021-12-02] MEDS: predniSONE 20 MG TABLET 40 MG PO (10:27)
[2021-12-02] MEDS: guaiFENesin LA 600 MG TAB.ER.12H 1200 MG PO (10:27)
[2021-12-02] MEDS: Benzonatate 100 MG CAPSULE PO (10:27)
--- NOTE | 2021-12-02 10:37 | P.DS_ITS ---
DS: Providers Provider Date of Service: 12/02/21 Date of admission: 11/28/21 05:17 Date of discharge: 12/02/21 Primary care physician: [facility] Consults: 11/28/21 05:22 Consult to Pulmonology Routine Consulting Provider: Will Liz Reason for consultation: mucous plugging Has provider been notified: No DS: Diagnosis Discharge Diagnosis (1) Asthma exacerbation: Status: Acute (2) Collapse of right lung: Status: Acute (3) Bronchitis: Status: Acute (4) Multiple tracheobronchial mucus plugs: Status: Acute DS: Summary Hospital Course Hospital Course: from admission H+P by hospitalist Dallin Campbell, 11/28/21: 21-year-old female with past medical history of asthma presents to the hospital with complaints of shortness of breath, chest tightness, as well as wheezing for the past 2 days.? Patient reports that she had significant severe chest tightness in the mid center of her chest, nonradiating, constant, 8/10, with no relieving or exacerbating factors that she has been experiencing for the past 2 days and it got worse today therefore she came to the hospital.? She reports a cough for the past few days, wheezing, no fever or chills, reports that her asthma is generally well controlled.? She smokes about few cigarettes a week.? She reports no recent upper respiratory infection, no recent travel or sick contacts. ?On arrival to the ED patient hemodynamically stable with no significant abnormal vitals except slightly elevated blood pressure Labs reviewed and were unremarkable. Chest x-ray shows lobe collapse which is new from the prior exam, this may be related to mucous plugging with postobstructive atelectasis, consider pulmonary toilet and repeat imaging post treatment. Patient will be admitted for further management This 21-year-old female with past medical history of asthma presented to the hospital with chest tightness, and wheezing and was found to have asthma exacerbation as well as collapse of right lung, which was attributed to mucus plugging and bronchospasm. She was treated with steroids and 5 days of levofloxacin. Pulmonology was consulted and she underwent bronchoscopy on 11/30/21. The mucus plugs were cleared out and microbiologic and cytologic samples sent; results pending at the time of discharge. Her symptoms resolved and she was discharged home on a prednisone taper with Pulmonology follow-up. Time Spent with Patient Time attestation: Total time spent providing and/or coordinating discharge services: Discharge coordination time: Greater than 30 minutes Quality: Safe Use of Opioids Does Pt have an Active Cancer Diagnosis on the Problem List?: No Quality: Stroke Does the patient have a stroke diagnosis?: No Physical Exam Vital Signs: Vital Signs: Last Vital Signs Temp 97.1 F 12/02/21 07:20 Pulse 82 12/02/21 07:52 Resp 17 12/02/21 08:00 BP 110/68 12/02/21 07:20 Pulse Ox 97 12/02/21 07:20 O2 Del Method 12/02/21 07:20 O2 Flow Rate 8 11/30/21 12:56 FiO2 40 11/30/21 12:56 BMI result Body Mass Index 25.4 Gen: in no acute distress HEENT: sclera anicteric, moist mucus membranes Neck: supple Lungs: clear to auscultation bilaterally Heart: regular rate and rhythm, no murmurs Abd: soft, non-tender, non-distended Ext: no edema Skin: warm/well-perfused Neuro: alert and oriented x3, no focal findings Psych: appropriate affect DS: Data Data Completed and Pending Completed studies during hospitalization [Text1]: Laboratory Results WBC 8.0 X10*3/uL (4.8-10.8) 11/28/21 06:01 RBC 5.22 X10*6/uL (4.20-5.50) 11/28/21 06:01 Hgb 15.7 g/dl (12.0-16.0) 11/28/21 06:01 Hct 46.0 % (37.0-47.0) 11/28/21 06:01 MCV 88.1 fL (80.0-98.0) 11/28/21 06:01 MCH 30.1 pg (27.0-33.0) 11/28/21 06:01 MCHC 34.1 g/dl (31.0-35.0) 11/28/21 06:01 RDW 12.3 % (11.0-16.0) 11/28/21 06:01 Plt Count 318 X10*3/uL (160-400) 11/28/21 06:01 MPV 9.0 fL (9.4-12.3) L 11/28/21 06:01 Immature Gran % (Auto) 0.4 % (0.0-0.4) 11/28/21 06:01 Neut % (Auto) 90.2 % (45-73) H 11/28/21 06:01 Lymph % (Auto) 7.3 % (20-40) L 11/28/21 06:01 [place] % (Auto) 1.6 % (2-11) L 11/28/21 06:01 Eos % (Auto) 0.4 % (0-4) 11/28/21 06:01 Baso % (Auto) 0.1 % (0-2) 11/28/21 06:01 Lymph # (Auto) 0.6 X10*3/uL (1.2-4.9) L 11/28/21 06:01 [place] # (Auto) 0.1 X10*3/uL (0.1-1.2) 11/28/21 06:01 Eos # (Auto) 0.0 X10*3/uL (0.0-0.4) 11/28/21 06:01 Baso # (Auto) 0.0 X10*3/uL (0.0-0.2) 11/28/21 06:01 Abs Immat Gran (auto) 0.03 X10*3/uL (0.00-0.03) 11/28/21 06:01 Absolute Neuts (auto) 7.2 x10*3/uL (2.0-8.3) 11/28/21 06:01 Absolute Nucleated RBC 0.000 X10*3/uL (0.0-0.012) 11/28/21 06:01 Nucleated RBC % (auto) 0.0 /100WBC (0.0-0.2) 11/28/21 06:01 Smear Tech's Comments VERIFIED 11/28/21 06:01 Sodium 138 mmol/L (135-145) 11/28/21 06:01 Potassium 4.1 mmol/L (3.3-5.1) 11/28/21 06:01 Chloride 105 mmol/L (96-108) 11/28/21 06:01 Carbon Dioxide 19 mmol/L (22-29) L 11/28/21 06:01 Anion Gap 18 (12-20) 11/28/21 06:01 BUN 6 mg/dL (9-16) L 11/28/21 06:01 Creatinine 0.69 mg/dL (0.5-1.4) 11/28/21 06:01 Estim Creat Clear Calc 107.8 11/28/21 06:01 Estimated GFR > 60 11/28/21 06:01 Random Glucose 112 mg/dL (60-115) 11/28/21 06:01 Calcium 9.5 mg/dL (8.4-10.2) 11/28/21 06:01 Urine Test NEGATIVE (NEGATIVE) 11/29/21 Unknown COVID-19 (IMELDA) Negative (Negative) 11/28/21 00:33 COVID-19 Clin Com See Note 11/28/21 00:33 Influenza Type A (DAVY) Negative (Negative) 11/28/21 00:33 Influenza Type B (DAVY) Negative (Negative) 11/28/21 00:33 Influenza A & B Note See Note 11/28/21 00:33 Impressions Chest X-Ray 11/29/21 07:30 IMPRESSION: Increasing right upper lobe atelectasis and consolidation from yesterday's exam. Pending studies at discharge: Pending at discharge 11/30/21 12:26 Cytology [PTH] Stat Labs on day of discharge: Preliminary micro results at discharge 11/30/21 Unknown Routine Culture - Preliminary Bronchial Washings Culture in progress. 11/30/21 Unknown Routine Culture - Preliminary Bronchial Brushings No growth to date. Discharge Plan Discharge Patient Disposition: Home, Self-Care Discharge Diagnosis: R lung collapse due to multiple mucus plugs, bronchitis, asthma exacerbation Referrals: [facility] [Primary Care Provider] - 1 Week Will Liz MD [Physician] - 1 Week Discharge Medications: New albuterol sulfate 2.5 mg /3 mL (0.083 %) solution for nebulization 2.5 mg inhalation Q4-6H PRN (Reason: shortness of breath or wheezing) Qty: 90 0RF prednisone 10 mg tablet See Rx Instructions .ROUTE .COMPLEX Qty: 20 0RF Rx Instructions: 40 mg daily x 2 days, then 30 mg daily x 2 days, then 20 mg daily x 2 days, then 10 mg daily x 2 days [total 8 days] Continued fluticasone propionate [Flovent HFA] 44 mcg/actuation HFA aerosol inhaler 2 puff PO BID albuterol sulfate [ProAir HFA] 90 mcg/actuation HFA aerosol inhaler 2 puff inhalation Q4-6H PRN (Reason: Wheezing) Qty: 8.5 0RF Discharge Orders: Discharge Order (Routine); Ordered 12/02/21 Ordered By: Soha Parra Diet: advance to usual diet Activity on Discharge: As tolerated Stand Alone Forms: Patient Portal Discharge page Care Plan Goals: respiratory health Health Concerns: R lung collapse due to multiple mucus plugs, bronchitis, asthma exacerbation Plan of Treatment: take prednisone taper as prescribed: 40 mg daily x 2 days, then 30 mg daily x 2 days, then 20 mg daily x 2 days, then 10 mg daily x 2 days [total 8 days] take albuterol inhaler or nebulizer as needed for shortness of breath or wheezing antibiotics completed in hospital: levofloxacin x 5 days follow up with your primary care doctor in 1 week follow up with baseball glove shaper [Dr Will Liz, [facility]] in 1-2 weeks return to hospital if you have worsening shortness of breath Assessment: See Discharge Summary Patient Instructions: Flexible Bronchoscopy (DC)
--- NOTE | 2021-12-02 11:06 | MHC.CM.PN ---
PT TO DC HOME TODAY WITH NO SERVICES SHE WILL DRIVE HERSELF
[2021-12-02 11:48] VITALS: BP 120/73; PULSE 68; RESP 16; TEMP 36.5; O2SAT 100
== END 2021-12-02 14:54 | disposition home or self-care (01) | DRG 143 ==
LOC: HO.ED 11-28 03:05 → HO.EDOVER 11-28 07:07 → HO.S3 11-28 16:10 → HO.EDOVER 11-29 14:09
PROVIDERS: Hospitalist; Nurse Practitioner; Admitting Provider Internal Medicine; Emergency Provider Emergency Medicine; Visit Provider Family Medicine
PROC: 0BJ08ZZ Inspection of Tracheobronchial Tree, Via Natural or Artificial Opening Endoscopic (ICD-10-PCS; CPT 31622; principal; 2021-11-30 12:00)
DX: T17.590A Other foreign object in bronchus causing asphyxiation, initial encounter (principal); J45.31 Mild persistent asthma with (acute) exacerbation; J98.19 Other pulmonary collapse; X58.XXXA Exposure to other specified factors, initial encounter; J98.09 Other diseases of bronchus, not elsewhere classified; J40 Bronchitis, not specified as acute or chronic; Z20.822 Contact with and (suspected) exposure to COVID-19; J98.11 Atelectasis; Z79.51 Long term (current) use of inhaled steroids; Z87.891 Personal history of nicotine dependence; Z79.899 Other long term (current) drug therapy
CPT/HCPCS: 36415; 71045; 71046; 80048; 81025; 85025; 87071; 87102; 87116; 87205; 87502; 87635; 88112; 88305; 94640; 94644; 96365; 96366; 96375; 99285; J0171; J1100; J2250; J2405; J2920; J2930; J3010; J3475

== ENCOUNTER 2022-02-26 20:14 | Emergency (ER) | payer MEDICAID, SELFPAY ==
--- NOTE | ~2022-02-26 | XR_ITS ---
EXAMINATION: XR CHEST CLINICAL INFORMATION: Chest pain. COMPARISON: 11/29/2021 chest radiograph. TECHNIQUE: Frontal view of the chest was obtained. FINDINGS: No significant abnormality is noted involving the heart, lungs, mediastinum, bony thorax or soft tissues. XR/XR chest 1V IMPRESSION: No acute cardiopulmonary process. Interval resolution of previously seen right upper lobe atelectasis.
--- NOTE | 2022-02-26 20:27 | ECG_ITS ---
Test Reason : CHEST PAIN Blood Pressure : / mmHG Vent. Rate : 083 BPM Atrial Rate : 083 BPM P-R Int : 120 ms QRS Dur : 082 ms QT Int : 354 ms P-R-T Axes : 074 079 048 degrees QTc Int : 415 ms Sinus rhythm with marked sinus arrhythmia Otherwise normal ECG When compared with ECG of 05-JUN-2021 09:05, No significant change was found Referred By: Generic ED Physician Electronically Signed By:MARIANNE MARROQUIN
[2022-02-26 20:49] LABS: MANUAL DIFF FLAG NO
[2022-02-26 21:07] LABS: Anion Gap 16 (12-20); Blood Urea Nitrogen 4 mg/dL (9-16); Calcium 9.8 mg/dL (8.4-10.2); Carbon Dioxide 23 mmol/L (22-29); Chloride 103 mmol/L (96-108); Estimated Glomerular Filt Rate > 60; Glucose Random 86 mg/dL (60-115); Potassium 4.7 mmol/L (3.3-5.1); Sodium 137 mmol/L (135-145)
[2022-02-26 21:12] LABS: Basophils Percent Auto 0.1 % (0-2); Eosinophils Absolute Auto 0.4 X10*3/uL (0.0-0.4); Eosinophils Percent Auto 4.4 % (0-4); Hematocrit 42.3 % (37.0-47.0); Hemoglobin 14.7 g/dl (12.0-16.0); Imm Gran Abs Auto 0.02 X10*3/uL (0.00-0.03); Imm Gran Pct Auto 0.2 % (0.0-0.4); Lymphocytes Absolute Auto 2.1 X10*3/uL (1.2-4.9); Lymphocytes Percent Auto 26.1 % (20-40); Mean Corpuscular HGB Conc 34.8 g/dl (31.0-35.0); Mean Corpuscular Hemoglobin 30.2 pg (27.0-33.0); Mean Platelet Volume 8.8 fL (9.4-12.3); Monocytes Absolute Auto 0.9 X10*3/uL (0.1-1.2); Monocytes Percent Auto 10.9 % (2-11); Neutrophils Absolute Auto 4.7 x10*3/uL (2.0-8.3); Neutrophils Percent Auto 58.3 % (45-73); Platelet Count 327 X10*3/uL (160-400); Red Blood Count 4.86 X10*6/uL (4.20-5.50); Red Cell Distribution Width 12.4 % (11.0-16.0); Troponin-I High Sensitivity < 3.5 ng/L (<3.5-17.0)
[2022-02-26 21:19] LABS: COVID-19 Test Negative (Negative); IDNOW Serial# 16C4AD1C
[2022-02-26 21:34] VITALS: BP 115/75; PULSE 88; RESP 18; TEMP 36.1; O2SAT 98; BMI 26.4
== END 2022-02-26 22:56 | disposition left against medical advice (07) ==
PROVIDERS: Emergency Provider Emergency Medicine
DX: O26.891 Other specified pregnancy related conditions, first trimester (principal); R07.9 Chest pain, unspecified; R06.02 Shortness of breath; Z20.822 Contact with and (suspected) exposure to COVID-19
CPT/HCPCS: 36415; 71045; 80048; 84484; 85025; 87635; 93005; 99283; 99284

== ENCOUNTER 2022-12-29 15:41 | Emergency (ER) | payer MEDICAID, SELFPAY ==
--- NOTE | ~2022-12-29 | XR_ITS ---
EXAMINATION: XR CHEST CLINICAL INFORMATION: Cough and chest tightness. COMPARISON: 02/26/2022 chest radiograph. TECHNIQUE: 2 views of the chest were obtained. FINDINGS: No significant abnormality is noted involving the heart, lungs, mediastinum, bony thorax or soft tissues. XR/XR chest 2V IMPRESSION: No acute cardiopulmonary process.
[2022-12-29 15:54] VITALS: BP 124/89; PULSE 110; RESP 18; TEMP 36.2; O2SAT 96; BMI 29.7
--- NOTE | 2022-12-29 15:54 | ED.ASTHMA ---
HPI - Asthma General Chief Complaint: Asthma Stated Complaint: asthma/sob Time Seen by Provider: 12/29/22 17:03 Source: patient Mode of arrival: ambulatory Limitations: no limitations History of Present Illness HPI Narrative: 22-year-old female with history of asthma came in for tightness in the chest with difficulty breathing and coughing for 1 day. Patient was outside in the hot humid weather all day today and also smoked marijuana yesterday which is usually trigger her asthma patient is not responding to her own albuterol inhaler at home. Patient otherwise declined sick contact, fever, recent travel. No history of intubation or ICU admission, last admission was last year and was a short admission in the regular hospital floor. Related Data Home Medications Medication Instructions Recorded Confirmed fluticasone propionate 44 2 puff PO BID 11/28/21 11/28/21 mcg/actuation HFA aerosol inhaler (Flovent HFA) Previous Rx's Medication Instructions Recorded albuterol sulfate 2.5 mg/3 mL 2.5 mg (3 mL) inhalation Q4-6H PRN 12/02/21 (0.083 %) solution for nebulization shortness of breath or wheezing #90 mL albuterol sulfate 90 mcg/actuation 2 puff inhalation Q4-6H PRN 12/02/21 aerosol inhaler (ProAir HFA) Wheezing #8.5 grams prednisone 10 mg tablet See Rx Instructions .Route 12/02/21 .COMPLEX #20 tabs albuterol sulfate 2.5 mg/3 mL 2.5 mg (3 mL) inhalation Q4-6H PRN 12/29/22 (0.083 %) solution for nebulization shortness of breath or wheezing #90 mL albuterol sulfate 90 mcg/actuation 2 puff inhalation Q6H PRN 12/29/22 aerosol inhaler shortness of breath or wheezing #8.5 grams prednisone 20 mg tablet 20 mg PO BID #10 tabs 12/29/22 Allergies Allergy/AdvReac Type Severity Reaction Status Date / Time No Known Allergies Allergy Verified 02/26/22 21:38 Review of Systems Review of Systems: All other systems are reviewed and are negative Constitutional: Reports as per HPI and Reports no additional constitutional complaints Eyes: Reports as per HPI and Reports no additional eye complaints Reports system reviewed and no additional complaints, except as documented Cardiovascular: Reports as per HPI and Reports no additional cardiovascular complaints Respiratory: Reports as per HPI and Reports no additional respiratory complaints Gastrointestinal: Reports as per HPI and Reports no additional gastrointestinal complaints Genitourinary: Reports no additional female genitourinary complaints Musculoskeletal: Reports no additional musculoskeletal complaints Skin/Breast: Reports system reviewed and no additional complaints, except as docu Psychiatric: Reports no additional psychiatric complaints Endocrine: Reports no additional endocrine complaints Hematologic/Lymphatic: Reports no additional hematologic/lymphatic complaints Allergic/Immunologic: Reports no additional allergic/immunologic complaints Reports system reviewed and no additional complaints, except as documented and Reports Abnormal speech present [facility] Past Medical History Medical History Asthma Asthma exacerbation Bronchitis Collapse of right lung Multiple tracheobronchial mucus plugs Surgical History No pertinent past surgical history Ulysses teeth removed Family History Family History Mother Hypertension Social History Social History Household Members: Family and Children Household Members Other:: Home with mother Housing: House Do you presently have visiting nurse or other home services: No Unable to assess alcohol history related to: Unknown Alcohol intake: current Alcohol intake frequency: a few times a month Alcohol type: hard liquor Patient Tobacco Use Status: Former Tobacco user Tobacco use type: Cigar Smoked in Last 30 Days: Yes e-Cigarette/Vaping Use: Never Used Second Hand Smoke Exposure: No Use of substances other than those prescribed or required for medical reasons: Yes Substance Use Type: Marijuana Advance Directives: No Advance Directives Information Provided: No Patient : No service: No Current occupational status: employed Physical Exam Vital Signs: Vital Signs: Last Vital Signs Temp 98.4 F 12/29/22 18:00 Pulse 98 12/29/22 19:23 Resp 15 12/29/22 19:23 BP 130/74 12/29/22 19:23 Pulse Ox 94 12/29/22 19:23 O2 Del Method Room Air 12/29/22 19:23 O2 Flow Rate 5 12/29/22 18:00 BMI result Body Mass Index 29.7 Vital signs have been reviewed as appeared to be correct. Blood pressure normal. Heart rate normal. Respiration rate normal. Temperature normal. Oxygen saturation normal. Appearance: Alert. Oriented X3. No acute distress. Head: Normal external exam. Normocephalic. Atraumatic. No Serna signs noted. No raccoon eyes noted Eyes: PERRLA. EOMI. Conjunctiva and sclera normal. Eyelids normal. ENT: TM's Normal. Pharynx normal. Uvula midline. Moist mucous membranes. No trismus noted. No drooling noted. No muffled voice noted. Neck: Normal inspection. Neck supple. FROM. No adenopathy. Thyroid Normal. No meningeal signs. No neck mass noted. CVS: Normal heart rate and rhythm. Heart sound normal. No murmurs noted. Pulses normal throughout. Respiratory: No respiratory distress. Painless inspiration. Breath sounds normal. Bilateral mild expiratory wheezing with prolonged expiration. Chest nontender. No accessory muscle usage noted or decreased air movement noted. Abdomen: Soft and nontender. Bowel sounds normal in all 4 quadrants. No distention noted. No organomegaly noted. No visible injury noted. Back: No CVA tenderness. Full range of motion noted. Skin: Skin warm and dry. Normal skin color. Normal skin turgor. No rashes/lesions/lacerations noted. Extremities: No lower extremity edema. Extremities exhibit normal range of motion. Extremities nontender. Neuro: Oriented X 3. Cranial nerve exam: II-XII are grossly intact No motor deficit. No sensory deficit. Reflexes normal. Course Course Course Narrative: FRANKIE 15:55PM - 22yoF with a PMHx of asthma presenting to the ED with c/o of cough with clear/ywllow sputum production with wheezing, Chest tightness. Reports she was outside yesterday very muggy. She also did smoke marijuana yesterday. She denies smoking cigarettes. Denies recent travel or sick contacts. Denies any fevers, chills, sore throat, trouble swallowing, nausea vomiting or abdominal pain or any other symptoms complaints or concerns at this time. On Exam Patient tachycardic although oxygen 96% on room air. Patient tolerating secretions well. Patient and mild respiratory distress with decreased breath sounds and inspiratory and expiratory wheezing throughout. No accessory muscle usage or tracheal tugging or abdominal retractions noted. CV RRR. Plan: Patient will have a chest x-ray and albuterol with 4 puffs while she is waiting in the waiting room and once the patient goes in the ED she will receive an hour long breathing treatment and 125 mg of IV Solu-Medrol with a L of IV fluids. Reevaluation(s) Reevaluation #1: Patient received multiple doses of bronchodilator, prednisone, patient feels better able to breathe more comfortable with less wheezing, improvement of the lung exam, O2 sat is 94% on room air with no intercostal retraction. Time: 21:11 Medications Administered Discontinued Medications Generic Name Dose Route Start Last Admin Trade Name Esme PRN Reason Stop Dose Admin Albuterol Sulfate 4 puff 12/29/22 15:55 12/29/22 16:11 Albuterol Sulfate 90 Mcg 8 Gm Inhaler INHALE 12/29/22 15:56 4 puff ONCE ONE Administration Albuterol Sulfate 7.5 mg/ 10 mg 12/29/22 16:24 12/29/22 16:37 Albuterol Sulfate 2.5 mg INHALE 12/29/22 16:25 10 mg ONCE ONE Administration Albuterol Sulfate 5 mg 12/29/22 17:13 12/29/22 19:17 Albuterol Sulfate (0.083%) 2.5 Mg/3 Ml Vial.Neb INHALE 12/29/22 17:14 5 mg ONCE ONE Administration Albuterol/Ipratropium 3 ml 12/29/22 17:12 12/29/22 19:16 Albuterol/Iprat 2.5/0.5mg 3 Ml Ampul.Neb INHALE 12/29/22 17:13 3 ml ONCE ONE Administration Sodium Chloride 1,000 mls @ 999 mls/hr 12/29/22 16:30 12/29/22 17:10 Ns IVCONT 12/29/22 17:30 Not Given .Q1H1M JANETTE Methylprednisolone Sodium Succinate 125 mg 12/29/22 16:24 12/29/22 17:10 Methylprednisolone Sod Succ 125 Mg/2 Ml Vial IVPUSH 12/29/22 16:25 Not Given ONCE ONE Ondansetron HCl 4 mg 12/29/22 19:14 12/29/22 19:23 Ondansetron Odt 4 Mg Tab.Rapdis TRANSLINGU 12/29/22 19:15 4 mg ONCE ONE Administration Prednisone 60 mg 12/29/22 17:12 12/29/22 17:21 Prednisone 20 Mg Tablet PO 12/29/22 17:13 60 mg ONCE ONE Administration Medical Decision Making Differential Diagnosis Differential Diagnoses: The differential diagnosis associated with the presentation includes (Pneumonia, pneumothorax, bronchitis, asthma exacerbation, electrolyte abnormality, severe anemia.) Admission/Observation Consideration of admission/observation: Escalation of care including admission/observation considered Lab Data MDM Lab Attestation statement: I reviewed the patient's lab results. 12/29/22 16:10 12/29/22 16:10 Labs: Lab Results 12/29/22 12/29/22 12/29/22 Range/Units 16:10 16:10 16:10 WBC 7.9 (4.8-10.8) X10*3/uL RBC 4.76 (4.20-5.50) X10*6/uL Hgb 12.1 (12.0-16.0) g/dl Hct 38.1 (37.0-47.0) % MCV 80.0 (80.0-98.0) fL MCH 25.4 L (27.0-33.0) pg MCHC 31.8 (31.0-35.0) g/dl RDW 16.5 H (11.0-16.0) % Plt Count 300 (160-400) X10*3/uL MPV 8.5 L (9.4-12.3) fL Immature Gran % (Auto) 0.1 (0.0-0.4) % Neut % (Auto) 83.9 H (45-73) % Lymph % (Auto) 8.0 L (20-40) % [place] % (Auto) 7.0 (2-11) % Eos % (Auto) 0.9 (0-4) % Baso % (Auto) 0.1 (0-2) % Lymph # (Auto) 0.6 L (1.2-4.9) X10*3/uL [place] # (Auto) 0.6 (0.1-1.2) X10*3/uL Eos # (Auto) 0.1 (0.0-0.4) X10*3/uL Baso # (Auto) 0.0 (0.0-0.2) X10*3/uL Abs Immat Gran (auto) 0.01 (0.00-0.03) X10*3/uL Absolute Neuts (auto) 6.6 (2.0-8.3) x10*3/uL Absolute Nucleated RBC 0.000 (0.0-0.012) X10*3/uL Nucleated RBC % (auto) 0.0 (0.0-0.2) /100WBC Sodium 140 (135-145) mmol/L Potassium 3.5 D (3.3-5.1) mmol/L Chloride 106 (96-108) mmol/L Carbon Dioxide 22 (22-29) mmol/L Anion Gap 16 (12-20) BUN 3 L (9-16) mg/dL Creatinine 0.68 (0.5-1.4) mg/dL Estim Creat Clear Calc 113.3 Estimated GFR > 60 Random Glucose 111 (60-115) mg/dL Calcium 9.6 (8.4-10.2) mg/dL Magnesium 1.7 (1.6-2.6) mg/dL Total Bilirubin 0.2 (0.0-1.0) mg/dL AST 14 (5-31) U/L ALT 10 (0-31) U/L Alkaline Phosphatase 83 (39-117) U/L Total Protein 7.6 (6.5-8.0) g/dL Albumin 4.6 (3.5-5.0) g/dL Beta HCG, Quant < 2 mIU/mL COVID-19 (IMELDA) (Negative) COVID-19 Clin Com 12/29/22 Range/Units 16:11 WBC (4.8-10.8) X10*3/uL RBC (4.20-5.50) X10*6/uL Hgb (12.0-16.0) g/dl Hct (37.0-47.0) % MCV (80.0-98.0) fL MCH (27.0-33.0) pg MCHC (31.0-35.0) g/dl RDW (11.0-16.0) % Plt Count (160-400) X10*3/uL MPV (9.4-12.3) fL Immature Gran % (Auto) (0.0-0.4) % Neut % (Auto) (45-73) % Lymph % (Auto) (20-40) % [place] % (Auto) (2-11) % Eos % (Auto) (0-4) % Baso % (Auto) (0-2) % Lymph # (Auto) (1.2-4.9) X10*3/uL [place] # (Auto) (0.1-1.2) X10*3/uL Eos # (Auto) (0.0-0.4) X10*3/uL Baso # (Auto) (0.0-0.2) X10*3/uL Abs Immat Gran (auto) (0.00-0.03) X10*3/uL Absolute Neuts (auto) (2.0-8.3) x10*3/uL Absolute Nucleated RBC (0.0-0.012) X10*3/uL Nucleated RBC % (auto) (0.0-0.2) /100WBC Sodium (135-145) mmol/L Potassium (3.3-5.1) mmol/L Chloride (96-108) mmol/L Carbon Dioxide (22-29) mmol/L Anion Gap (12-20) BUN (9-16) mg/dL Creatinine (0.5-1.4) mg/dL Estim Creat Clear Calc Estimated GFR Random Glucose (60-115) mg/dL Calcium (8.4-10.2) mg/dL Magnesium (1.6-2.6) mg/dL Total Bilirubin (0.0-1.0) mg/dL AST (5-31) U/L ALT (0-31) U/L Alkaline Phosphatase (39-117) U/L Total Protein (6.5-8.0) g/dL Albumin (3.5-5.0) g/dL Beta HCG, Quant mIU/mL COVID-19 (IMELDA) Negative (Negative) COVID-19 Clin Com See Note Independent Interpretation I performed an independent interpretation of an: Plain X-Ray (Chest: No acute intrathoracic pathology.) Radiology Impression Discussion of test interpretation with radiology: I have reviewed the radiologist's reading. Discharge Plan Discharge Clinical Impression: Asthma with exacerbation Patient Disposition: Home, Self-Care Instructions: Asthma (ED) Prescriptions: New albuterol sulfate 2.5 mg /3 mL (0.083 %) solution for nebulization 2.5 mg inhalation Q4-6H PRN (Reason: shortness of breath or wheezing) Qty: 90 0RF albuterol sulfate 90 mcg/actuation HFA aerosol inhaler 2 puff inhalation Q6H PRN (Reason: shortness of breath or wheezing) Qty: 8.5 0RF prednisone 20 mg tablet 20 mg PO BID Qty: 10 0RF No Action fluticasone propionate [Flovent HFA] 44 mcg/actuation HFA aerosol inhaler 2 puff PO BID albuterol sulfate 2.5 mg /3 mL (0.083 %) solution for nebulization 2.5 mg inhalation Q4-6H PRN (Reason: shortness of breath or wheezing) Qty: 90 0RF prednisone 10 mg tablet See Rx Instructions .ROUTE .COMPLEX Qty: 20 0RF Rx Instructions: 40 mg daily x 2 days, then 30 mg daily x 2 days, then 20 mg daily x 2 days, then 10 mg daily x 2 days [total 8 days] albuterol sulfate [ProAir HFA] 90 mcg/actuation HFA aerosol inhaler 2 puff inhalation Q4-6H PRN (Reason: Wheezing) Qty: 8.5 0RF Referrals: [facility] [Primary Care Provider] -
--- NOTE | 2022-12-29 16:00 | ECG_ITS ---
Test Reason : SOB Blood Pressure : / mmHG Vent. Rate : 103 BPM Atrial Rate : 103 BPM P-R Int : 118 ms QRS Dur : 082 ms QT Int : 318 ms P-R-T Axes : 077 084 002 degrees QTc Int : 416 ms Sinus tachycardia T wave abnormality, consider inferior ischemia Abnormal ECG When compared with ECG of 26-FEB-2022 20:32, T wave inversion now evident in Inferior leads Nonspecific T wave abnormality now evident in Lateral leads Referred By: Anali Fisher Electronically Signed By:Enoc Rogers
[2022-12-29 16:11] VITALS: PULSE 110; RESP 20; O2SAT 96
[2022-12-29] MEDS: Albuterol Sulfate 90 MCG 8 GM INHALER 4 PUFF INHALE (16:11)
[2022-12-29 16:17] LABS: MANUAL DIFF FLAG NO
[2022-12-29 16:18] LABS: Basophils Percent Auto 0.1 % (0-2); Eosinophils Absolute Auto 0.1 X10*3/uL (0.0-0.4); Eosinophils Percent Auto 0.9 % (0-4); Hematocrit 38.1 % (37.0-47.0); Hemoglobin 12.1 g/dl (12.0-16.0); Imm Gran Abs Auto 0.01 X10*3/uL (0.00-0.03); Imm Gran Pct Auto 0.1 % (0.0-0.4); Lymphocytes Absolute Auto 0.6 X10*3/uL (1.2-4.9); Mean Corpuscular HGB Conc 31.8 g/dl (31.0-35.0); Mean Corpuscular Hemoglobin 25.4 pg (27.0-33.0); Mean Platelet Volume 8.5 fL (9.4-12.3); Monocytes Absolute Auto 0.6 X10*3/uL (0.1-1.2); Neutrophils Absolute Auto 6.6 x10*3/uL (2.0-8.3); Neutrophils Percent Auto 83.9 % (45-73); Platelet Count 300 X10*3/uL (160-400); Red Blood Count 4.76 X10*6/uL (4.20-5.50); Red Cell Distribution Width 16.5 % (11.0-16.0); White Blood Count 7.9 X10*3/uL (4.8-10.8)
--- OUTSIDE RECORDS SUMMARY | 2022-12-29 16:25 | XMS_ITS | Continuity of Care Document ---
Author Name Unknown Organization [facility] Address [address] [place] [id number]- Care Team Providers Care Material Controller Name Role Phone Marbin GRIFFIN, Johanna Gomes Primary Care Physician Encounter [facility] Date(s): 04/14/20 - 05/27/[address] [address]- Attending Physician: Not on Staff, Attending MD Allergies, Adverse Reactions, Alerts Substance Reaction Severity Status NKA Active Immunizations Given and Recorded Vaccine Date Status Refusal Reason influenza virus vaccine, inactivated 04/14/20 Give n Medications Albuterol (Eqv-ProAir HFA) 90 mcg/inh inhalation aerosol 2 puffs, Inhalation, Every 6 hours, # 1 each, 3 Refills, Maintenance, 04/14/20 14:38:00 EDT, [id number], 2 puffs Inhalation Every 6 hours,x30 days, 153.05, cm, 04/14/20 13:55:00 EDT, Height Start Date: 04/14/20 Stop Date: 08/12/20 Status: Ordered aspirin 81 mg oral tablet 1 tablet = 81 mg, By Mouth, 2 times a day, # 180 tablet, 3 Refills, Maintenance, 12/23/19 16:43:00 EDT, Tablet, [id number], 153.05, cm, 12/23/19 15:28:00 EDT, Height Start Date: 12/23/19 Status: Ordered Flovent HFA 110 mcg/inh inhalation aerosol 2 puffs, Inhalation, 2 times a day, # 12 Gm, 3 Refills, Maintenance, 04/14/20 14:38:00 EDT, Aerosol, [id number], 153.05, cm, 04/14/20 13:55:00 EDT, Height Start Date: 04/14/20 Status: Ordered Multivitamins with Folic Acid 1 mg oral tablet 1 tablet, By Mouth, Daily, # 90 tablet, 3 Refills, Maintenance, 02/09/20 9:15:00 EDT, Tablet, [facility]/pharmacy #[id number], 1 tablet By Mouth Daily, 153.05, cm, 01/20/20 9:40:00 EDT, Height Start Date: 02/09/20 Status: Ordered Singulair 5 mg oral tablet, chewable 5 mg, 1, tablet, Chew, Daily in PM, # 90 tablet, Refills 3, Tot. 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
--- OUTSIDE RECORDS SUMMARY | 2022-12-29 16:25 | XMS_ITS | Continuity of Care Document ---
Author Name Unknown Organization [facility] Address [address] [place] [id number]- Care Team Providers Care Stock Clerk Name Role Phone Marbin GRIFFIN, Johanna Gomes Primary Care Physician Encounter [facility] Date(s): 12/28/19 - 01/27/[address] [address]- [facility] Allergies, Adverse Reactions, Alerts Substance Reaction Severity Status NKA Active Medications albuterol 0.083% inhalation solution 3 mL, Inhalation, Every 4 hours, # 1,620 mL, 3 Refills, 12/23/19 16:45:00 EDT, [id number], 153.05, cm, 12/23/19 15:28:00 EDT, Height Start Date: 12/23/19 Status: Ordered aspirin 81 mg oral tablet 1 tablet = 81 mg, By Mouth, 2 times a day, # 180 tablet, 3 Refills, Maintenance, 12/23/19 16:43:00 EDT, Tablet, [id number], 153.05, cm, 12/23/19 15:28:00 EDT, Height Start Date: 12/23/19 Status: Ordered doxylamine 25 mg oral tablet 1 tablet = 25 mg, By Mouth, Daily, 15 to 30 minutes before bed, # 14 tablet, 0 Refills, Acute 02/21/20 10:01:00 EDT, 01/20/20 10:01:00 EDT, Tablet, [id number], 153.05, cm, 01/20/20 9:40:00 EDT, Height Start Date: 01/20/20 Stop Date: 02/21/20 Status: Ordered Flovent HFA 110 mcg/inh inhalation aerosol with adapter 2 puffs, Inhalation, 2 times a day, # 12 Gm, 3 Refills, Maintenance, Aerosol Start Date: 11/16/09 Status: Ordered Orapred sodium phosphate 15 mg/5 ml oral liquid 10 mL = 30 mg, By Mouth, Daily, # 50 mL, 0 Refills, Maintenance Start Date: 11/16/09 Stop Date: 11/21/09 Status: Ordered PrednisoLONE (Pedi) 3 mg/mL Oral Syringe See Instructions, 50 mL, 0, 0, 11/02/07 14:41:24, 40 mg By Mouth Every 24 hours for four days, Print DOLLY Number, ADS OPPTHS Start Date: 11/02/07 Status: Ordered Pulmicort Respules 0.25 mg/2 ml inhalation suspension 0.25, mg, 2, mL, Neb, Daily at bedtime, 0, 0, 11/01/07 18:44:32, Print DOLLY Number, 144, Constant Indicator Start Date: 11/01/07 Status: Ordered Singulair 5 mg oral tablet, chewable 5 mg, 1, tablet, Chew, Daily in PM, # 90 tablet, Refills 3, Tot. Refills 3, Maintenance, 12/23/19 16:44:00 EDT, Route to Pharmacy Electronically, [facility]/pharmacy #[id number], 153.05, cm, 12/23/19 15:28:00 EDT, Height Start Date: 12/23/19 Status: Ordered Vitamin B6 50 mg oral tablet 50 mg, 1, tablet, By Mouth, Daily, for 14 days, # 14 tablet, Refills 0, Tot. Refills 0, Acute 02/03/20 10:00:00 EDT, 01/20/20 10:00:00 EDT, Route to Pharmacy Electronically, 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
--- OUTSIDE RECORDS SUMMARY | 2022-12-29 16:25 | XMS_ITS | Continuity of Care Document ---
Author Name Unknown Organization [facility] Address [address] [place] [id number]- Care Team Providers Care Rotary Surface Grinder Name Role Phone Johanna Zazueta MD Primary Care Physician Encounter [facility] Date(s): 05/20/22 - 05/27/[address] [address]- Encounter Diagnosis Procedure and treatment not carried out for other reasons(Final) - Discharge Disposition: A-D/C Walkout Attending Physician: Andrea Sanchez MD Admitting Physician: Andrea Sanchez MD Allergies, Adverse Reactions, Alerts Substance Reaction Severity Status Latex 1, 2 Active 1severe vag irritation 2Condom Immunizations Given and Recorded Vaccine Date Status Refusal Reason influenza virus vaccine, inactivated 04/03/22 Give n influenza virus vaccine, inactivated 04/14/20 Give n tetanus/diphtheria/pertussis, acel(Tdap) 06/23/20 Given Medications Flovent HFA 44 mcg/inh inhalation aerosol = 88 mcg, Inhalation, 2 times a day, # 1 each, 1 Refills, Maintenance, 03/28/22 20:20:00 EDT, Inhaler, [id number], Partial fill upon patient request if the prescription is for a schedule II opioid drug., 153.05, cm, 03/05/22 15:25:00 EDT, Heig... Start Date: 03/28/22 Status: Ordered Paxlovid 150 mg-100 mg oral tablet See Instructions, take as directed in package, # 30 tablet, 0 Refills, Maintenance, 05/16/22 15:03:00 EST, [id number], Partial fill upon patient request if the prescription is for a schedule II opioid drug., take as directed in package, 153.05... Start Date: 05/16/22 Status: Ordered Peak Flow Meter (Adult) See Instructions, # 1 each, Maintenance, Check peak flow daily and during wheezing. Normal 380-550., 03/28/22 20:21:00 EDT, Supply, 153.05, cm, 03/05/22 15:25:00 EDT, Height, 82, kg, 07/08/20 6:02:00EST, Dry Weight Start Date: 03/28/22 Status: Ordered Multivitamins with Folic Acid 1 mg oral capsule See Instructions, TAKE ONE DAILY BY MOUTH, # 100 capsule, 2 Refills, Maintenance, 03/05/22 15:39:00EDT, [facility]/pharmacy #[id number], Partial fill upon patient request if the prescription is for a schedule IIopioid drug., TAKE ONE DAILY BY MOUTH, 153.05, cm,... Start Date: 03/05/22 Status: Ordered ProAir HFA 90 mcg/inh inhalation aerosol with adapter Refills 0, Maintenance, 03/28/22 17:20:00 EDT Start Date: 03/28/22 Status: Ordered Problem List Condition Confirmation Course Effective Dates Status Health St [facility] Informant Asthma 1 Confirmed Active ADHD Confirmed Active Eczema Confirmed Active COVID-19 vaccine series completed Confirmed Active 1Managed by PCP Social History Social History Type Response Smoking Status Never (less than 100 in lifetime) entered on: 08/18/20 Sex Patient Care team information Care Team Personnel Name: Johanna Zazueta MD Position: [facility] Outreach Member Role: PCP Address: Address: [address] [place] [phone]- Care Team Related Persons Name: DARCY PIKE Address: [address] Address: [address] [place] Name: POLLY MEYER Address: [address] [address]
--- OUTSIDE RECORDS SUMMARY | 2022-12-29 16:25 | XMS_ITS | Continuity of Care Document ---
Author Name Unknown Organization [facility] Address [address] [place] [address]- Care Team Providers Care Detective Homicide Squad Name Role Phone Marbin GRIFFIN, Johanna Gomes Primary Care Physician [place] [facility] [place] Date(s[place] 10/04/22 - 11/03/[address] [address]- Allergies, Adverse Reactions, Alerts Substance Reaction Severity Status Latex 1, 2 Active 1severe vag irritation 2Condom Immunizations Given and Recorded Vaccine Date Status Refusal Reason Measles/Mumps/Rubella Virus Vaccine 10/09/22 Given tetanus/diphtheria/pertussis, acel(Tdap) 07/25/22 Given tetanus/diphtheria/pertussis, acel(Tdap) 06/23/20 Given influenza virus vaccine, inactivated 04/03/22 Give n influenza virus vaccine, inactivated 04/14/20 Give n Medications Colace sodium 100 mg oral capsule 100 mg, 1, capsule, By Mouth, 2 times a day, PRN, # 60 capsule, Refills 1, Tot. Refills 1, Maintenance, for constipation, 07/17/22 11:32:00 EST, Route to Pharmacy Electronically, [facility]/pharmacy #[id number], Partial fill upon patient request if the prescriptio... Start Date: 07/17/22 Status: Ordered Colace sodium 100 mg oral capsule 100 mg, 1, capsule, By Mouth, 2 times a day, PRN, # 100 capsule, Refills 0, Tot. Refills 0, Maintenance, Constipation, 10/09/22 23:11:00 EDT, Route to Pharmacy Electronically, [facility]/pharmacy #[id number], Partial fill upon patient request if the prescription i... Start Date: 10/09/22 Stop Date: 10/19/22 Status: Ordered Flovent HFA 110 mcg/inh inhalation aerosol 2 puffs, Inhalation, 2 times a day, # 12 Gm, 0 Refills, Maintenance, 08/07/22 14:27:00 EST, Aerosol, Partial fill upon patient request if the prescription is for a schedule II opioid drug. Start Date: 08/07/22 Status: Ordered Flovent HFA 44 mcg/inh inhalation aerosol = 88 mcg, Inhalation, 2 times a day, # 1 each, 1 Refills, Maintenance, 03/28/22 20:20:00 EDT, Inhaler, [id number], Partial fill upon patient request if the prescription is for a schedule II opioid drug., 153.05, cm, 03/05/22 15:25:00 EDT, Heig... Start Date: 03/28/22 Status: Ordered Peak Flow Meter (Adult) See [...] 100 capsule, 2 Refills, Maintenance, 03/05/22 15:39:00EDT, [id number], Partial fill upon patient request [...] Active COVID-19 vaccine series completed Confirmed Active Obese class I Confirmed Active 1Managed by PCP Social History Social History Type Response Smoking Status Never (less than 100 in lifetime) entered on: 08/18/20 Sex Patient Care team information Care Team Personnel Name: Marbin GRIFFIN, Johanna Gomes Position: [facility] Outreach Member Role: PCP Address: Address: [address] [place] [address]- Care Team Related Persons Name: DARCY PIKE Address: [address] Address: [address] [address] [place] Name: ANIBAL PIKE Address: [address] Address: [address] [place] [address] [place] Name: POLLY MEYER Address: [address] [address]
--- OUTSIDE RECORDS SUMMARY | 2022-12-29 16:25 | XMS_ITS | Continuity of Care Document ---
Author Name Unknown Organization [facility] Address [address] [place] [address]- Care Team Providers Care Offc Spec Name Role Phone Marbin GRIFFIN, Johanna Gomes Primary Care Physician Encounter [facility] [place] Date(s): 03/18/22 - 04/17/[address] [address]- Allergies, Adverse Reactions, Alerts Substance Reaction Severity [...] Refills, Maintenance, 03/28/22 20:20:00 EDT, [facility]haler, [id number], Partial fill upon patient request if the [...] 100 capsule, 2 Refills, Maintenance, 03/05/22 15:39:00EDT, [facility]/pharmacy #[id number], Partial fill upon patient request if the [...] on: 08/18/20 Sex Patient Care team information Personnel Name: Marbin GRIFFIN, Johanna Gomes Address: Address: [address] [place] [id number]
--- OUTSIDE RECORDS SUMMARY | 2022-12-29 16:25 | XMS_ITS | Continuity of Care Document ---
Author Name Unknown Organization [facility] Address [address] [place] [address]- Care Team Providers Care Crew Attendant Name Role Phone Marbin GRIFFIN, Johanna Gomes Primary Care Physician [place] [facility] [place] - 07/27/[address] [address]- Allergies, Adverse Reactions, Alerts Substance Reaction Severity Status NKA Active Immunizations Given and Recorded Vaccine Date Status Refusal Reason tetanus/diphtheria/pertussis, acel(Tdap) 06/23/20 Given influenza virus vaccine, inactivated 04/14/20 Give n [...] EDT, Height Start Date: 12/23/19 Status: Ordered Marian 0.35 mg oral tablet 1 tablet = 0.35 mg, By Mouth, Daily, # 28 tablet, 3 Refills, Maintenance, 07/10/20 6:28:00 EST, Tablet, [id number], Partial fill upon patient request if the prescription is for a schedule II opioid drug., 153.05, cm, 07/10/20 3:41:00 EST, Heig... Start Date: 07/10/20 Status: Ordered Flovent HFA 110 mcg/inh inhalation aerosol 2 puffs, Inhalation, 2 times a day, # 12 Gm, 3 Refills, Maintenance, 04/14/20 14:38:00 EDT, Aerosol, [facility]/pharmacy #[id number], 153.05, cm, 04/14/20 13:55:00 EDT, Height Start Date: 04/14/20 Status: Ordered Multivitamins with Folic Acid 1 mg oral tablet 1 tablet, By Mouth, Daily, # 90 tablet, 3 Refills, Maintenance, 02/09/20 9:15:00 EDT, Tablet, [facility]/pharmacy #[id number], 1 tablet By Mouth Daily, 153.05, cm, 01/20/20 9:40:00 EDT, Height Start Date: 02/09/20 Status: Ordered Singulair 5 mg oral tablet, chewable 5 mg, 1, tablet, Chew, Daily in PM, # 90 tablet, Refills 3, Tot. 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
--- OUTSIDE RECORDS SUMMARY | 2022-12-29 16:26 | XMS_ITS | Continuity of Care Document ---
Author Name Unknown Organization [facility] Address [address] [place] [address]- Care Team Providers Care Provider Relations Manager Name Role Phone Marbin GRIFFIN, Johanna Gomes Primary Care Physician [place] [facility] [place] Date(s[place] 06/23/20 - 08/27/[address] [address]- Attending Physician: Not on Staff, Attending MD [...] 3 Refills, Maintenance, 07/10/20 6:28:00 EST, Tablet, [facility]/pharmacy #[id number], Partial fill upon patient request if the prescription is for a schedule II opioid drug., 153.05, cm, 07/10/20 3:41:00 EST, Heig... Start Date: 07/10/20 Status: Ordered Colace sodium 100 mg oral capsule 100 mg, 1, capsule, By Mouth, 2 times a day, PRN, # 20 capsule, Refills 2, Tot. Refills 2, Maintenance, for constipation, 08/18/20 9:18:00 EST, Route to Pharmacy Electronically, [facility]/pharmacy #[id number], Partial fill upon patient request if the prescription... Start Date: 08/18/20 Status: Ordered Flovent HFA 110 mcg/inh inhalation aerosol 2 puffs, Inhalation, 2 times a day, # 12 Gm, 3 Refills, Maintenance, 04/14/20 14:38:00 EDT, Aerosol, [facility]/pharmacy #[id number], 153.05, cm, 04/14/20 13:55:00 EDT, Height Start Date: 04/14/20 Status: Ordered Multivitamins with Folic Acid 1 mg oral tablet 1 tablet, By Mouth, Daily, # 90 tablet, 3 Refills, Maintenance, 02/09/20 9:15:00 EDT, Tablet, [facility]/pharmacy #[id number], 1 tablet By Mouth Daily, 153.05, cm, 01/20/20 9:40:00 EDT, Height Start Date: 02/09/20 Status: Ordered Singulair 5 mg oral tablet, chewable 5 mg, 1, tablet, Chew, Daily in PM, # 90 tablet, Refills 3, Tot. Refills 3, Maintenance, 12/23/19 16:44:00 EDT, Route to Pharmacy Electronically, [facility]/pharmacy #[id number], 153.05, cm, 12/23/19 15:28:00 EDT, [...]
--- OUTSIDE RECORDS SUMMARY | 2022-12-29 16:26 | XMS_ITS | Continuity of Care Document ---
Author Name Unknown Organization [facility] Address [address] [place] [address]- Care Team Providers Care Steam And Power Superintendent Name Role Phone Marbin GRIFFIN, Johanna Gomes Primary Care Phys[id number] Date[facility] 08/18/20 - 12/03/[address] [address]- Attending Physician: Not on Staff, Attending MD [...] 3 Refills, Maintenance, 07/10/20 6:28:00 EST, Tablet, [facility]/pharmacy #[id number], Partial fill upon [...] 08/18/20 9:18:00 EST, Route to Pharmacy Electronically, [facility]/pharmacy #[id number], Partial fill upon patient request if the prescription... Start Date: 08/18/20 Status: Ordered Flovent HFA 110 mcg/inh inhalation aerosol 2 puffs, Inhalation, 2 times a day, # 12 Gm, 3 Refills, Maintenance, 04/14/20 14:38:00 EDT, Aerosol, [facility]/pharmacy #[id number], 153.05, cm, 04/14/20 13:55:00 EDT, Height Start Date: 04/14/20 Status: Ordered Multivitamins with Folic Acid 1 mg oral tablet 1 tablet, By Mouth, Daily, # 90 tablet, 3 Refills, Maintenance, 02/09/20 9:15:00 EDT, Tablet, [facility]/pharmacy #[id number], 1 tablet By Mouth Daily, 153.05, cm, 01/20/20 9:40:00 EDT, Height Start Date: 02/09/20 Status: Ordered Singulair 5 mg oral tablet, chewable 5 mg, 1, tablet, Chew, Daily in PM, # 90 tablet, Refills 3, Tot. 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
--- OUTSIDE RECORDS SUMMARY | 2022-12-29 16:26 | XMS_ITS | Continuity of Care Document ---
Author Name Unknown Organization [facility] Address [address] [place] [address]- Care Team Providers Care Doctor Of Naprapathy Name Role Phone Marbin GRIFFIN, Johanna Gomes Primary Care Physician [place] [facility] [place] [facility]13[facility] [address] [address]- Allergies, Adverse Reactions, Alerts Substance Reaction Severity Status Latex 1, 2 Active 1severe vag irritation 2Condom Immunizations Given and Recorded Vaccine Date Status Refusal Reason tetanus/diphtheria/pertussis, acel(Tdap) 06/23/20 Given influenza virus vaccine, inactivated 04/14/20 Give n Medications Multivitamins with Folic Acid 1 mg oral capsule See Instructions, TAKE ONE DAILY BY MOUTH, # 100 capsule, 2 Refills, Maintenance, 03/05/22 15:39:00EDT, [facility]/pharmacy #[id number], Partial fill upon patient request if the prescription is for a schedule IIopioid drug., TAKE ONE DAILY BY MOUTH, 153.05, cm,... Start Date: 03/05/22 Status: Ordered Problem List Condition Confirmation Course Effective Dates Status Health St atus Informant Asthma 1 Confirmed Active ADHD Confirmed Active Constipation Confirmed Active Eczema Confirmed Active H/O Frequent headaches Confirmed Active + GBS urine Confirmed 12/15/19 Active COVID-19 vaccine series completed Confirmed Active 1Managed by PCP Social History Social History Type Response Smoking Status Never (less than 100 in lifetime) entered on: 08/18/20 Sex Patient Care team information Personnel Name: Johanna Zazueta MD Address: Address: [address] [place] [address]-
--- OUTSIDE RECORDS SUMMARY | 2022-12-29 16:26 | XMS_ITS | Continuity of Care Document ---
Author Name Unknown Organization [facility] Address [address] [place] [address]- Care Team Providers Care Bottom Turner Name Role Phone Marbin GRIFFIN, Johanna Gomes Primary Care Physician Encounter [facility] [place] Date(s): 02/09/20 - 03/10/[address] [address]- [facility] Allergies, Adverse Reactions, Alerts Substance Reaction Severity [...] bed, # 14 tablet, 0 Refills, Acute 03/11/20 9:16:00 EDT, 02/09/20 9:15:00 EDT, Tablet, [id number], 153.05, cm, 01/20/20 9:40:00 EDT,Height Start Date: 02/09/20 Stop Date: 03/11/20 Status: Ordered Flovent HFA 110 mcg/inh inhalation aerosol with adapter 2 puffs, Inhalation, 2 times a day, # 12 Gm, 3 Refills, Maintenance, Aerosol Start Date: 11/16/09 Status: Ordered Multivitamins with Folic Acid 1 mg oral tablet 1 tablet, By Mouth, Daily, # 90 tablet, 3 Refills, Maintenance, 02/09/20 9:15:00 EDT, Tablet, [facility]/pharmacy #[id number], 1 tablet By Mouth Daily, 153.05, cm, 01/20/20 9:40:00 EDT, Height Start Date: 02/09/20 Status: Ordered Singulair 5 mg oral tablet, chewable 5 mg, 1, tablet, Chew, Daily in PM, # 90 tablet, Refills 3, Tot. Refills 3, Maintenance, 12/23/19 16:44:00 EDT, Route to Pharmacy Electronically, [facility]/pharmacy #[id number], 153.05, cm, 12/23/19 15:28:00 EDT, Height [...]
--- OUTSIDE RECORDS SUMMARY | 2022-12-29 16:26 | XMS_ITS | Continuity of Care Document ---
Author Name Unknown Organization [facility] Address [address] [place] [address]- Care Team Providers Care Cigar Inspector Name Role Phone Marbin GRIFFIN, Johanna Gomes Primary Care Physician [place] [facility] [place] 09/09/22 - 10/09/[address] [address] Allergies, Adverse Reactions, Alerts Substance Reaction Severity Status Latex 1, 2 Active 1severe vag irritation 2Condom Immunizations Given and Recorded Vaccine Date Status Refusal Reason Measles/Mumps/Rubella Virus Vaccine 10/09/22 Given tetanus/diphtheria/pertussis, acel(Tdap) 07/25/22 Given tetanus/diphtheria/pertussis, acel(Tdap) 06/23/20 Given influenza virus vaccine, inactivated 04/03/22 Give n influenza virus vaccine, inactivated 04/14/20 Give n Medications acetaminophen 325 mg oral tablet 650 mg, By Mouth, Every 4 hours, PRN, for 7 days, (1-3), may give 325mg per patient preference and re-dose with 325mg within 4 hours, if needed. Patient should only receive a total of 650mg of Acetaminophen every 4 hours., # 30 tablet, Refills 0, To... Start Date: 10/09/22 Stop Date: 10/16/22 Status: Ordered Colace sodium 100 mg oral capsule 100 mg, 1, capsule, By Mouth, 2 times a day, PRN, # 60 capsule, Refills 1, Tot. Refills 1, Maintenance, for constipation, 07/17/22 11:32:00 EST, Route to Pharmacy Electronically, [facility]/pharmacy #[id number], Partial fill upon patient request if the prescriptio... Start Date: 07/17/22 Status: Ordered Colace sodium 100 mg oral capsule 100 mg, 1, capsule, By Mouth, 2 times a day, PRN, # 100 capsule, Refills 0, Tot. Refills 0, Maintenance, Constipation, 10/09/22 23:11:00 EDT, Route to Pharmacy Electronically, [facility]/pharmacy #[id number], Partial fill upon patient request [...] 1 Refills, Maintenance, 03/28/22 20:20:00 EDT, Inhaler, [facility]/pharmacy #[id number], Partial fill upon patient request if the prescription is for a schedule II opioid drug., 153.05, cm, 03/05/22 15:25:00 EDT, Heig... Start Date: 03/28/22 Status: Ordered ibuprofen 800 mg oral tablet 800 mg, 1, tablet, By Mouth, Every 8 hours, PRN, for 7 days, (4-6), may give 400mg per patient preference and re-dose with 400mg within 8 hours if needed. Patient should only receive a total of 800mgof Ibuprofen every 8 hours., # 50 tablet, Refills... Start Date: 10/09/22 Stop Date: 10/16/22 Status: Ordered Peak Flow Meter (Adult) See [...] 100 capsule, 2 Refills, Maintenance, 03/05/22 15:39:00EDT, [facility]/pharmacy #[id number], Partial fill upon patient request if the [...] Team Personnel Name: Johanna Zazueta MD Position: [facility] Outreach Member Role: PCP Address: Address: [address] [place] [address]- Care Team Related Persons Name: DARCY PIKE Address: [address] Address: [address] [address] Name: POLLY MEYER Address: [address] [address] Name: NANETTE ROSS Address: [address] Address: [address] [address] [place]
--- OUTSIDE RECORDS SUMMARY | 2022-12-29 16:26 | XMS_ITS | Continuity of Care Document ---
Author Name Unknown Organization [facility] Address [address] [place] [address]- Care Team Providers Care Library Sales Consultant Name Role Phone Marbin GRIFFIN, Johanna Gomes Primary Care Physician Encounter [facility] [place] Date(s): 09/18/22 - 10/18/[address] [address] Allergies, Adverse Reactions, Alerts Substance [...] 07/17/22 11:32:00 EST, Route to Pharmacy Electronically, [facility]/pharmacy #[id number], Partial fill upon patient request if the prescriptio... Start Date: 07/17/22 Status: Ordered Colace sodium 100 mg oral capsule 100 mg, 1, capsule, By Mouth, 2 times a day, PRN, # 100 capsule, Refills 0, Tot. Refills 0, Maintenance, Constipation, 10/09/22 23:11:00 EDT, Route [facility], [id number], Partial fill upon patient request [...] Personnel Name: Marbin GRIFFIN, Johanna Gomes Position: [facility] Outreach Member Role: PCP Address: Address: [address] [place] [address]- Care Team Related Persons Name: DARCY PIKE Address: [address] Address: [address] [address] [place] Name: ANIBAL PIKE Address: [address] Address: home [address] [place] [address] [place] Name: POLLY MEYER Address: [address] [address]
--- OUTSIDE RECORDS SUMMARY | 2022-12-29 16:26 | XMS_ITS | Continuity of Care Document ---
Author Name Unknown Organization [facility] Address [address] [place] [address]- Care Team Providers Care Transporter Radiology Name Role Phone Marbin GRIFFIN, Johanna Gomes Primary Care Physician [phone] Encounter [facility] [place] Date(s): 12/23/19 - 01/22/[address] [address] Allergies, Adverse Reactions, Alerts Substance Reaction [...] 12/23/19 16:44:00 EDT, Route to Pharmacy Electronically, [facility]/pharmacy #[id number], 153.05, cm, 12/23/19 15:28:00 EDT, Height Start Date: 12/23/19 Status: Ordered Vitamin B6 50 mg oral tablet 50 mg, 1, tablet, By Mouth, Daily, for 14 days, # 14 tablet, Refills 0, Tot. Refills 0, Acute 02/03/20 10:00:00 EDT, 01/20/20 10:00:00 EDT, Route to Pharmacy Electronically, [facility]/pharmacy #[id number], 153.05, cm, 01/20/20 9:40:00 EDT, [...]
--- OUTSIDE RECORDS SUMMARY | 2022-12-29 16:26 | XMS_ITS | Continuity of Care Document ---
Author Name Unknown Organization [facility] Address [address] [place] [address]- Care Team Providers Care Skin Lifter Bacon Name Role Phone Marbin GRIFFIN, Johanna Gomes Primary Care Physician [phone] Encounter [facility] [place] Date(s): 12/04/20 - 01/03/[address] [address]- Attending Physician: Admtr, Mane8 Admitting Physician: Admtr, Ar8 Referring Physician: Admtr, Ar8 Allergies, Adverse Reactions, Alerts Substance Reaction Severity [...] Refills, Maintenance, 12/23/19 16:43:00 EDT, [facility]t, [id number], 153.05, cm, 12/23/19 15:28:00 EDT, Height Start Date: 12/23/19 Status: Ordered Marian 0.35 mg oral tablet 1 tablet = 0.35 mg, By Mouth, Daily, # 28 tablet, 3 Refills, Maintenance, 07/10/20 6:28:00 EST, Tablet, [facility]/pharmacy #[id number], Partial fill upon [...] 08/18/20 9:18:00 EST, Route to Pharmacy Electronically, [facility]/pharmacy #[id number], Partial fill upon patient request if the prescription... Start Date: 08/18/20 Status: Ordered Flovent HFA 110 mcg/inh inhalation aerosol 2 puffs, Inhalation, 2 times a day, # 12 Gm, 3 Refills, Maintenance, 04/14/20 14:38:00 EDT, Aerosol, [facility]/pharmacy #[id number], 153.05, cm, 04/14/20 13:55:00 EDT, Height Start Date: 04/14/20 Status: Ordered Multivitamins with Folic Acid 1 mg oral tablet 1 tablet, By Mouth, Daily, # 90 tablet, 3 Refills, Maintenance, 02/09/20 9:15:00 EDT, Tablet, [facility]/pharmacy #[id number], 1 tablet By Mouth Daily, 153.05, cm, 01/20/20 9:40:00 EDT, Height Start Date: 02/09/20 Status: Ordered Singulair 5 mg oral tablet, chewable 5 mg, 1, tablet, Chew, Daily in PM, # 90 tablet, Refills 3, Tot. Refills 3, Maintenance, 12/23/19 16:44:00 EDT, Route to Pharmacy Electronically, [facility]/pharmacy #[id number], 153.05, cm, 12/23/19 [...]
--- OUTSIDE RECORDS SUMMARY | 2022-12-29 16:26 | XMS_ITS | Continuity of Care Document ---
Author Name Unknown Organization [facility] Address [address] [place] [address]- Care Team Providers Care Secondary History Teacher Name Role Phone Marbin GRIFFIN, Johanna Gomes Primary Care Physician [place] [facility] [place]07/[place] - 11/06/[address] [address]- Allergies, Adverse Reactions, Alerts Substance Reaction Severity [...] 07/17/22 11:32:00 EST, [facility], [id number], Partial [...] Personnel Name: Marbin GRIFFIN, Johanna Gomes Position: [facility] Outreach Member Role: PCP Address: Address: [address] [place] [address]- Care Team Related Persons Name: DARCY PIKE Address: [address] Address: [address] [address] [place] Name: ANIBAL PIKE Address: [address] Address: home [address] [place] [address] [place] Name: POLLY MEYER Address: [address] [address]
--- OUTSIDE RECORDS SUMMARY | 2022-12-29 16:26 | XMS_ITS | Continuity of Care Document ---
Author Name Unknown Organization [facility] Address [address], [address] [place] [address]- Care Team Providers Care Shop Teacher Name Role Phone Johanna Zazueta MD Primary Care Physician [phone] Encounter [facility] [place] Date(s): 02/20/22 - 03/22/22 [facility] [address], [address] [place] [address]- Allergies, Adverse Reactions, Alerts Substance Reaction Severity Status Latex 1, 2 Active 1severe vag irritation 2Condom Immunizations Given and Recorded Vaccine Date Status Refusal Reason tetanus/diphtheria/pertussis, acel(Tdap) 06/23/20 Given influenza virus vaccine, inactivated 04/14/20 Give n Medications Multivitamins with Folic Acid 1 mg oral capsule See Instructions, TAKE ONE DAILY BY MOUTH, # 100 capsule, 2 Refills, Maintenance, 03/05/22 15:39:00EDT, [facility]/pharmacy #[id number], Partial fill upon patient request if the [...] Personnel Name: Johanna Zazueta MD Address: Address: [address] [place] [address]
--- OUTSIDE RECORDS SUMMARY | 2022-12-29 16:26 | XMS_ITS | Continuity of Care Document ---
Author Name Unknown Organization [facility] ter Address [address] [place] [address]- Care Team Providers Care Franchise Manager Name Role Phone Johanna Zazueta MD Primary Care Physician Encounter [facility] [place] Date(s): 07/05/20 - 07/06/[address] [address]- Discharge Disposition: A-D/C Home Attending Physician: Kinga Perez MD Admitting Physician: Chris GRIFFIN, Kinga Referring Physician: Kinga Perez MD Allergies, Adverse Reactions, Alerts Substance Reaction [...] 3 Refills, Maintenance, 02/09/20 9:15:00 EDT, Tablet, [id number], 1 tablet By Mouth Daily, 153.05, cm, 01/20/20 9:40:00 EDT, Height Start Date: 02/09/20 Status: Ordered Singulair 5 mg oral tablet, chewable 5 mg, 1, tablet, Chew, Daily in PM, # 90 tablet, Refills 3, Tot. 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 History of UTI(Confirmed) Active Nausea and vomiting in (Confirmed) Active Teenage (Confirmed) 1 07/05/20 Active 1Problem added by Discern Expert @[facility] [place]:9 Vital Signs Most recent to oldest [Reference Range]: 1 Weight 84.3 kg (07/05/20 9:38 PM) Oxygen Saturation [94-100 %] 97 % (07/05/20 9:48 PM) Pulse Rate [55-90 bpm] 84 bpm (07/05/20 9:48 PM) Blood Pressure [71-110/30-71 mm Hg] 123/ 71mm Hg *H* (07/05/20 9:48 PM) Respiratory Rate [16-30 br/min] 17 br/mi n (07/05/20 9:48 PM) Temperature [96.8-100.4 DegF] 98.2 DegF (07/05/20 9:38 PM) Mode of Delivery (Oxygen) Room air (07/05/20 9:48 PM) Blood pressure sites Arm, right (07/05/20 9:48 PM) Temperature Route Oral (07/05/20 9:38 PM) Dry Weight 84.3 kg (07/05/20 9:38 PM) Weight Obtained Via Standing scale (07/05/20 9:38 PM) Dry Weight Obtained Via Standing scale (07/05/20 9:38 PM) Social History Social History Type Response Smoking Status Never (less than 100 in lifetime) entered on: 12/14/19 Sex Female
--- OUTSIDE RECORDS SUMMARY | 2022-12-29 16:26 | XMS_ITS | Continuity of Care Document ---
Author Name Unknown Organization [facility] Address [address] [place] [address], [address] [place] [address]- Care Team Providers Care Staff Training And Development Manager Name Role Phone Marbin GRIFFIN, Johanna Gomes Primary Care Physician [place] [facility] [place] 07/05/22 - 08/04/22 [facility] [address] [facility], [address] [place] [address]- Allergies, Adverse Reactions, Alerts Substance Reaction Severity Status Latex 1, 2 Active 1severe vag irritation 2Condom Immunizations Given and Recorded Vaccine Date Status Refusal Reason tetanus/diphtheria/pertussis, acel(Tdap) 07/25/22 Given tetanus/diphtheria/pertussis, acel(Tdap) 06/23/20 Given influenza virus vaccine, inactivated 04/03/22 Give n influenza virus vaccine, inactivated 04/14/20 Give n Medications Colace sodium 100 mg oral capsule 100 mg, 1, capsule, By Mouth, 2 times a day, PRN, # 60 capsule, Refills 1, Tot. Refills 1, Maintenance, for constipation, 07/17/22 11:32:00 EST, Route to Pharmacy Electronically, [facility]/pharmacy #[id number], Partial fill upon patient request if the prescriptio... Start Date: 07/17/22 Status: Ordered Flovent HFA 44 mcg/inh inhalation aerosol = 88 mcg, Inhalation, 2 times a day, # 1 each, 1 Refills, Maintenance, 03/28/22 20:20:00 EDT, Inhaler, [facility]/pharmacy #[id number], Partial fill upon patient request [...] Team Personnel Name: Johanna Zazueta MD Position: S Outreach Member Role: PCP Address: Address: [address] [place] [address]- Care Team Related Persons Name: DARCY PIKE Address: [id number] Address: [address] [address] [place] Name: POLLY MEYER Address: [address] [address]
--- OUTSIDE RECORDS SUMMARY | 2022-12-29 16:26 | XMS_ITS | Continuity of Care Document ---
Author Name Unknown Organization [facility] Address [address] [place] [address]- Care Team Providers Care Wash Oil Pump Operator Helper Name Role Phone Marbin GRIFFIN, Johanna Gomes Primary Care Physician [place] [facility] [place] Date(s): 05/29/22 - 09/20/[address] [address]- Attending Physician: Tracie Knight CNM Admitting Physician: Tracie Knight CNM Allergies, Adverse Reactions, Alerts Substance Reaction Severity [...] 11:32:00 EST, Route to Pharmacy Electronically, [facility]/pharmacy #[id number], Partial fill upon patient request if the prescriptio... Start Date: 07/17/22 Status: Ordered Flovent HFA 110 mcg/inh inhalation [...] Team Personnel Name: Johanna Zazueta MD Position: [facility] Outreach Member Role: PCP Address: Address: [address] [place] [address]- Care Team Related Persons Name: DARCY PIKE Address: [address] Address: [address] [place] Name: POLLY MEYER Address: [address] [address]
--- OUTSIDE RECORDS SUMMARY | 2022-12-29 16:26 | XMS_ITS | Continuity of Care Document ---
Author Name Unknown Organization [facility] Address [address] [place] [address]- Care Team Providers Care Conditioning Machine Operator Name Role Phone Marbin GRIFFIN, Johanna Gomes Primary Care Physician [phone] [id number] Date(s): 08/02/21 - 09/02/[address] [address] Attending Physician: Not on Staff, Attending MD Allergies, Adverse Reactions, Alerts No Known Allergies Immunizations Given and Recorded Vaccine Date Status [...] 3 Refills, Maintenance, 07/10/20 6:28:00 EST, Tablet, [facility]/pharmacy #[id number], Partial fill upon patient request if the prescription is for a schedule II opioid drug., 153.05, cm, 07/10/20 3:41:00 EST, Heig... Start Date: 07/10/20 Status: Ordered Colace sodium 100 mg oral capsule 100 mg, 1, capsule, By Mouth, 2 times a day, PRN, # 20 capsule, Refills 2, Tot. Refills 2, Maintenance, for constipation, 08/18/20 9:18:00 EST, Route to Pharmacy Electronically, [facility]/pharmacy #[id number], Partial fill upon patient request if the prescription... Start Date: 08/18/20 Status: Ordered Flovent HFA 110 mcg/inh inhalation aerosol 2 puffs, Inhalation, 2 times a day, # 12 Gm, 3 Refills, Maintenance, 04/14/20 14:38:00 EDT, Aerosol, [facility]/pharmacy #[id number], 153.05, cm, 04/14/20 13:55:00 EDT, Height Start Date: 04/14/20 Status: Ordered Multivitamins with Folic Acid 1 mg oral tablet 1 tablet, By Mouth, Daily, # 90 tablet, 3 Refills, Maintenance, 02/09/20 9:15:00 EDT, Tablet, [facility]/pharmacy #[id number], 1 tablet By Mouth Daily, 153.05, cm, 01/20/20 9:40:00 EDT, Height Start Date: 02/09/20 Status: Ordered Singulair 5 mg oral tablet, chewable 5 mg, 1, tablet, Chew, Daily in PM, # 90 tablet, Refills 3, Tot. Refills 3, Maintenance, 12/23/19 16:44:00 EDT, Route to Pharmacy Electronically, [facility]/pharmacy #[id number], 153.05, cm, 12/23/19 15:28:00 EDT, [...]
--- OUTSIDE RECORDS SUMMARY | 2022-12-29 16:26 | XMS_ITS | Continuity of Care Document ---
Author Name Unknown Organization [facility] Address [address] [place] [address]- Care Team Providers Care Apartment Leasing Specialist Name Role Phone Marbin GRIFFIN, Johanna Gomes Primary Care Physician [place] [facility] [place] - 05/27/[address] [address]- Allergies, Adverse Reactions, Alerts Substance Reaction Severity [...] 3 Refills, Maintenance, 02/09/20 9:15:00 EDT, Tablet, [facility]/pharmacy #[id number], 1 tablet By Mouth Daily, 153.05, cm, 01/20/20 9:40:00 EDT, Height Start Date: 02/09/20 Status: Ordered Singulair 5 mg oral tablet, chewable 5 mg, 1, tablet, Chew, Daily in PM, # 90 tablet, Refills 3, Tot. Refills 3, Maintenance, 12/23/19 16:44:00 EDT, Route to Pharmacy Electronically, [facility]/pharmacy #[id number], 153.05, cm, 12/23/19 15:28:00 EDT, [...]
--- OUTSIDE RECORDS SUMMARY | 2022-12-29 16:26 | XMS_ITS | Continuity of Care Document ---
Author Name Unknown Organization [facility] Address [address] [place] [address]- Care Team Providers Care Personnel Monitor Name Role Phone Marbin GRIFFIN, Johanna Gomes Primary Care Physician Encounter [facility] [place] Date(s): 03/15/22 - 04/14/[address] [address]- Allergies, Adverse Reactions, Alerts Substance Reaction Severity [...] Refills, Maintenance, 03/28/22 20:20:00 EDT, [facility]haler, [id number], Partial fill upon patient request if the [...] 100 capsule, 2 Refills, Maintenance, 03/05/22 15:39:00EDT, [facility]/pharmacy #[id number], Partial fill upon patient request if the [...] Name: Marbin GRIFFIN, Johanna Gomes Address: Address: [address] [place] [id number]
--- OUTSIDE RECORDS SUMMARY | 2022-12-29 16:26 | XMS_ITS | Continuity of Care Document ---
Author Name Unknown Organization [facility] Address [address] [place] [address]- Care Team Providers Care Automobile Rental Representative Name Role Phone Marbin GRIFFIN, Johanna Gomes Primary Care Physician [phone] [id number] Date[facility] 10/05/20 - 11/05/[address] [address] Attending Physician: Not on [...] 3 Refills, Maintenance, 07/10/20 6:28:00 EST, Tablet, [facility]/pharmacy #[id number], Partial fill upon patient [...] 08/18/20 9:18:00 EST, Route to Pharmacy Electronically, [facility]/pharmacy #[id number], Partial fill upon patient request if the prescription... Start Date: 08/18/20 Status: Ordered Flovent HFA 110 mcg/inh inhalation aerosol 2 puffs, Inhalation, 2 times a day, # 12 Gm, 3 Refills, Maintenance, 04/14/20 14:38:00 EDT, Aerosol, [facility]/pharmacy #[id number], 153.05, cm, 04/14/20 13:55:00 EDT, Height Start Date: 04/14/20 Status: Ordered Multivitamins with Folic Acid 1 mg oral tablet 1 tablet, By Mouth, Daily, # 90 tablet, 3 Refills, Maintenance, 02/09/20 9:15:00 EDT, Tablet, [facility]/pharmacy #[id number], 1 tablet By Mouth Daily, 153.05, cm, 01/20/20 9:40:00 EDT, Height Start Date: 02/09/20 Status: Ordered Singulair 5 mg oral tablet, chewable 5 mg, 1, tablet, Chew, Daily in PM, # 90 tablet, Refills 3, Tot. 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
--- OUTSIDE RECORDS SUMMARY | 2022-12-29 16:26 | XMS_ITS | Continuity of Care Document ---
Author Name Unknown Organization [facility] Address [address] [place] [address]- Care Team Providers Care Petrographer Name Role Phone Marbin GRIFFIN, Johanna Gomes Primary Care Physician [phone] [place] [facility] [place] Date(s): 04/25/20 - 05/25/[address] [address]- Allergies, Adverse Reactions, Alerts Substance Reaction Severity [...] 3 Refills, Maintenance, 02/09/20 9:15:00 EDT, Tablet, [facility]/pharmacy #[id number], 1 tablet By Mouth Daily, 153.05, cm, 01/20/20 9:40:00 EDT, Height Start Date: 02/09/20 Status: Ordered Singulair 5 mg oral tablet, chewable 5 mg, 1, tablet, Chew, Daily in PM, # 90 tablet, Refills 3, Tot. Refills 3, Maintenance, 12/23/19 16:44:00 EDT, Route to Pharmacy Electronically, [facility]/pharmacy #[id number], 153.05, cm, 12/23/19 15:28:00 EDT, [...]
--- OUTSIDE RECORDS SUMMARY | 2022-12-29 16:26 | XMS_ITS | Continuity of Care Document ---
Author Name Unknown Organization [facility] Address [address] [place] [address]- Care Team Providers Care Wind Farm Electrical Systems Designer Name Role Phone Marbin GRIFFIN, Johanna Gomes Primary Care Physician En[place] [facility] [place] Date(s): 07/05/20 - 08/04/[address] [address]- Allergies, Adverse Reactions, Alerts Substance Reaction Severity [...] 3 Refills, Maintenance, 04/14/20 14:38:00 EDT, Aerosol, [facility]/pharmacy #[id number], 153.05, cm, 04/14/20 13:55:00 EDT, Height Start Date: 04/14/20 Status: Ordered Multivitamins with Folic Acid 1 mg oral tablet 1 tablet, By Mouth, Daily, # 90 tablet, 3 Refills, Maintenance, 02/09/20 9:15:00 EDT, Tablet, [facility]/pharmacy #[id number], 1 tablet By Mouth Daily, 153.05, cm, 01/20/20 9:40:00 EDT, Height Start Date: 02/09/20 Status: Ordered Singulair 5 mg oral tablet, chewable 5 mg, 1, tablet, Chew, Daily in PM, # 90 tablet, Refills 3, Tot. Refills 3, Maintenance, 12/23/19 16:44:00 EDT, Route to Pharmacy Electronically, [facility]/pharmacy #[id number], 153.05, cm, 12/23/19 15:28:00 EDT, [...]
--- OUTSIDE RECORDS SUMMARY | 2022-12-29 16:26 | XMS_ITS | Continuity of Care Document ---
Author Name Unknown Organization [facility] Address [address] [place] [address]- Care Team Providers Care Rn Documentation Name Role Phone Marbin GRIFFIN, Johanna Gomes Primary Care Physician [facility] [place] Date(s): 05/07/22 - 06/06/[address] [address]- Allergies, Adverse Reactions, Alerts Substance Reaction Severity [...] 100 capsule, 2 Refills, Maintenance, 03/05/22 15:39:00EDT, [facility]/pharmacy #[id number], Partial fill upon patient request [...] Team Personnel Name: Johanna Zazueta MD Position: [facility] Outreach Member Role: PCP Address: Address: [address] [place] [address]- Care Team Related Persons Name: DARCY PIKE Address: [address] Address: [address] [address] [place] Name: POLLY MEYER Address: [address] [address]
--- OUTSIDE RECORDS SUMMARY | 2022-12-29 16:26 | XMS_ITS | Continuity of Care Document ---
Author Name Unknown Organization [facility] ter Address [address] [place] [address]- Care Team Providers Care Tub Puller Name Role Phone Johanna Zazueta MD Primary Care Physician [place] [facility] [place] Date(s): 07/08/20 - 07/10/[address] [address]- Discharge Disposition: A-D/C Home Attending Physician: Ninfa Chacon DO Admitting Physician: Ninfa Chacon DO Referring Physician: Ninfa Chacon DO Allergies, Adverse Reactions, Alerts Substance Reaction Severity Status NKA Active Immunizations Given and Recorded Vaccine Date Status Refusal Reason tetanus/diphtheria/pertussis, acel(Tdap) 06/23/20 Given influenza virus vaccine, inactivated 04/14/20 Give n Medications Acetaminophen Tablet 650 mg, Tablet, By Mouth, Every 4 hours, PRN for Pain , Mild, (1-3), may give 325mg per patient preference and re-dose with 325mg within 4 hours, if needed. Patient should only receive a total of 650mg of Acetaminophen every 4 hours., Routine, 07/08... Start Date: 07/08/20 Stop Date: 08/07/20 Status: Ordered Albuterol (Eqv-ProAir HFA) 90 mcg/inh inhalation aerosol 2 puffs, Inhalation, Every 6 hours, # 1 each, 3 Refills, Maintenance, 04/14/20 14:38:00 EDT, [facility]/pharmacy #[id number], 2 puffs Inhalation Every 6 hours,x30 days, 153.05, cm, 04/14/20 13:55:00 EDT, Height Start Date: 04/14/20 Stop Date: 08/12/20 Status: Ordered aspirin 81 mg oral tablet 1 tablet = 81 mg, By Mouth, 2 times a day, # 180 tablet, 3 Refills, Maintenance, 12/23/19 16:43:00 EDT, Tablet, [facility]/pharmacy #[id number], 153.05, cm, 12/23/19 15:28:00 EDT, Height Start Date: 12/23/19 Status: Ordered Marian 0.35 mg oral tablet 1 tablet = 0.35 mg, By Mouth, Daily, # 28 tablet, 3 Refills, Maintenance, 07/10/20 6:28:00 EST, Tablet, [facility]/pharmacy #[id number], Partial fill upon patient request if the prescription is for a schedule II opioid drug., 153.05, cm, 07/10/20 3:41:00 EST, Heig... Start Date: 07/10/20 Status: Ordered Flovent HFA 110 mcg/inh inhalation aerosol 2 puffs, Inhalation, 2 times a day, # 12 Gm, 3 Refills, Maintenance, 04/14/20 14:38:00 EDT, Aerosol, [facility]/pharmacy #[id number], 153.05, cm, 04/14/20 13:55:00 EDT, Height Start Date: 04/14/20 Status: Ordered Ibuprofen Tablet 800 mg, Tablet, By Mouth, Every 8 hours, PRN for Pain , Moderate, (4-6), may give 400mg per patientpreference and re-dose with 400mg within 8 hours if needed. Patient should only receive a total of 800mg of Ibuprofen every 8 hours., Routine, ... Start Date: 07/08/20 Stop Date: 07/22/20 Status: Ordered Multivitamins with Folic Acid 1 mg oral tablet 1 tablet, By Mouth, Daily, # 90 tablet, 3 Refills, Maintenance, 02/09/20 9:15:00 EDT, Tablet, [facility]/pharmacy #[id number], 1 tablet By Mouth Daily, 153.05, cm, 01/20/20 9:40:00 EDT, Height Start Date: 02/09/20 Status: Ordered Singulair 5 mg oral tablet, chewable 5 mg, 1, tablet, Chew, Daily in PM, # 90 tablet, Refills 3, Tot. 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 History of UTI(Confirmed) Active Nausea and vomiting in (Confirmed) Active Teenage (Confirmed) 1 07/05/20 Active 1Problem added by Discern Expert @[facility]:9 Vital Signs Most recent to oldest [Reference Range]: 1 2 3 4 Height 153.05 cm (07/10/20 9:39 AM) 153.05 cm (07/10/20 12:10 AM) 153.05 cm (07/09/20 9:34 AM) Weight 82 kg (07/08/20 6:02 AM) 83.8 kg (07/08/20 4:13 AM) Oxygen Saturation [94-100 %] 100 % (07/10/20 9:39 AM) 99 % (07/09/20 8:43 AM) 98 % (07/08/20 7:13 PM) Pulse Rate [55-90 bpm] 78 bpm (07/10/20 9:39 AM) 82 bpm (07/10/20 12:10 AM) 89 bpm (07/09/20 8:43 AM) Body Mass Index [18.5-24.99] 35.01 *>HHI* (07/08/20 6:02 AM) Blood Pressure [71-110/30-71 mm Hg] 125/89mm Hg *H* (07/10/20 9:39 AM) 131/78mm Hg *H* (07/10/20 12:10 AM) 107/60mm Hg (07/09/20 8:43 AM) Respiratory Rate [16-30 br/min] 20 br/min (07/10/20 9:39 AM) 181 br/min *H* (07/10/20 12:10 AM) 18 br/min (07/09/20 10:00 PM) 18 br/min (07/09/20 10:00 PM) Temperature [96.8-100.4 DegF] 97.8 DegF (07/10/20 9:39 AM) 98.2 DegF (07/10/20 12:10 AM) 98.3 DegF (07/09/20 8:43 AM) Blood pressure sites Arm, left (07/10/20 9:39 AM) Arm, right (07/09/20 8:43 AM) Arm, left (07/08/20 6:02 AM) Temperature Route Axillary (07/10/20 9:39 AM) Oral (07/10/20 12:10 AM) Oral (07/09/20 8:43 AM) Dry Weight 82 kg (07/08/20 6:02 AM) 82 kg (07/08/20 4:14 AM) 83.8 kg (07/08/20 4:13 AM) Weight Obtained Via Standing scale (07/08/20 4:13 AM) Dry Weight Obtained Via Standing scale (07/08/20 4:13 AM) Social History Social History Type Response Smoking Status Never (less than 100 in lifetime) entered on: 12/14/19 Sex Female
--- OUTSIDE RECORDS SUMMARY | 2022-12-29 16:26 | XMS_ITS | Continuity of Care Document ---
Author Name Unknown Organization [facility] Address [address] [place] [address]- Care Team Providers Care Probate Paralegal Name Role Phone Johanna Zazueta MD Primary Care Physician [place] [facility] [place] [id number] Date(s): 06/23/20 - 08/13/[address] [address]- Attending Physician: Tracie Knight CNM Admitting Physician: Tracie Knight CNM Referring Physician: Johanna Zazueta MD Allergies, Adverse Reactions, Alerts Substance Reaction [...] 3 Refills, Maintenance, 07/10/20 6:28:00 EST, Tablet, [facility]/pharmacy #[id number], Partial fill upon patient request if the prescription is for a schedule II opioid drug., 153.05, cm, 07/10/20 3:41:00 EST, Heig... Start Date: 07/10/20 Status: Ordered Flovent HFA 110 mcg/inh inhalation aerosol 2 puffs, Inhalation, 2 times a day, # 12 Gm, 3 Refills, Maintenance, 04/14/20 14:38:00 EDT, Aerosol, [facility]/pharmacy #[id number], 153.05, cm, 04/14/20 13:55:00 EDT, Height Start Date: 04/14/20 Status: Ordered Multivitamins with Folic Acid 1 mg oral tablet 1 tablet, By Mouth, Daily, # 90 tablet, 3 Refills, Maintenance, 02/09/20 9:15:00 EDT, Tablet, [facility]/pharmacy #[id number], 1 tablet By Mouth Daily, 153.05, cm, 01/20/20 9:40:00 EDT, Height Start Date: 02/09/20 Status: Ordered Singulair 5 mg oral tablet, chewable 5 mg, 1, tablet, Chew, Daily in PM, # 90 tablet, Refills 3, Tot. 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
--- OUTSIDE RECORDS SUMMARY | 2022-12-29 16:26 | XMS_ITS | Continuity of Care Document ---
Author Name Unknown Organization [facility] Address [address] [place] [address]- Care Team Providers Care Strike On Machine Operator Name Role Phone Marbin GRIFFIN, Johanna Gomes Primary Care Physician Encounter [facility] [place] Date(s): 02/17/20 - 03/18/[address] [address]- [facility] Allergies, Adverse Reactions, Alerts Substance Reaction Severity Status NKA Active Medications Albuterol (Eqv-ProAir HFA) 90 mcg/inh inhalation aerosol 2 puffs, Inhalation, Every 6 hours, # 1 each, 3 Refills, Maintenance, 03/17/20 11:31:00 EDT, [id number], 2 puffs Inhalation Every 6 hours,x30 days, 153.05, cm, 03/17/20 11:20:00 EDT, Height Start Date: 03/17/20 Stop Date: 07/15/20 Status: Ordered aspirin 81 mg oral tablet [...] 12/23/19 16:44:00 EDT, Route to Pharmacy Electronically, [facility]/pharmacy #[id number], 153.05, cm, 12/23/19 15:28:00 EDT, [...]
--- OUTSIDE RECORDS SUMMARY | 2022-12-29 16:26 | XMS_ITS | Continuity of Care Document ---
Author Name Unknown Organization [facility] Address [address] [place] [address]- Care Team Providers Care Library Science Professor Name Role Phone Marbin GRIFFIN, Johanna Gomes Primary Care Physician [phone] [facility] Date(s): 08/03/21 - 09/02/[address] [address] Attending Physician: AdmSerena olivo Admitting Physician: [id number] Referring Physician: Admtr, Ar8 Allergies, Adverse Reactions, Alerts No Known Allergies [...] 3 Refills, Maintenance, 07/10/20 6:28:00 EST, Tablet, [facility]/pharmacy #[id number], Partial fill upon [...] 08/18/20 9:18:00 EST, Route to Pharmacy Electronically, [facility]/pharmacy #[id number], Partial fill upon patient request if the prescription... Start Date: 08/18/20 Status: Ordered Flovent HFA 110 mcg/inh inhalation aerosol 2 puffs, Inhalation, 2 times a day, # 12 Gm, 3 Refills, Maintenance, 04/14/20 14:38:00 EDT, Aerosol, [facility]/pharmacy #[id number], 153.05, cm, 04/14/20 13:55:00 EDT, Height Start Date: 04/14/20 Status: Ordered Multivitamins with Folic Acid 1 mg oral tablet 1 tablet, By Mouth, Daily, # 90 tablet, 3 Refills, Maintenance, 02/09/20 9:15:00 EDT, Tablet, [facility]/pharmacy #[id number], 1 tablet By Mouth Daily, 153.05, cm, 01/20/20 9:40:00 EDT, Height Start Date: 02/09/20 Status: Ordered Singulair 5 mg oral tablet, chewable 5 mg, 1, tablet, Chew, Daily in PM, # 90 tablet, Refills 3, Tot. 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
--- OUTSIDE RECORDS SUMMARY | 2022-12-29 16:26 | XMS_ITS | Continuity of Care Document ---
Author Name Unknown Organization [facility] Address [address] [place] [address]- Care Team Providers Care Casting Agent Name Role Phone Marbin GRIFFIN, Johanna Gomes Primary Care Physician [place] [facility]/03/22 - 06/28/[address] [address]- Attending Physician: Tracie Knight CNM Admitting Physician: [...] 2 Refills, Maintenance, 03/05/22 15:39:00EDT, [facility]/pharmacy #[id number], Partial fill upon patient request if [...] S Outreach Member Role: PCP Address: Address: [address] [place] [address]- Care Team Related Persons Name: DARCY PIKE Address: [address] Address: [address] [address] [place] Name: POLLY MEYER Address: [address] [address]
--- OUTSIDE RECORDS SUMMARY | 2022-12-29 16:26 | XMS_ITS | Continuity of Care Document ---
Author Name Unknown Organization [facility] Address [address] [place] [address]- Care Team Providers Care Assistant Professor Of Geography Name Role Phone Marbin GRIFFIN, Johanna Gomes Primary Care Physician Encounter [facility] Date(s): 12/16/19 - 01/15/[address] [address]- [facility] Allergies, Adverse Reactions, Alerts Substance Reaction Severity [...] sodium phosphate 15 mg/5 ml oral liquid 14.9701, mg, 5, mL, By Mouth, 2 times a day, 50, mL, 0, 0, 11/01/07 12:52:51, Print DOLLY Number, ADSOPPTHS, [id number], Constant Indicator Start Date: 11/01/07 Stop Date: 11/06/07 Status: Ordered Orapred sodium phosphate 15 mg/5 [...] 12/23/19 16:44:00 EDT, Route to Pharmacy Electronically, [facility]/pharmacy #[id number], 153.05, cm, 12/23/19 15:28:00 EDT, Height Start Date: 12/23/19 Status: Ordered Problem List Condition Effective Dates Status Health Status Inform ant Asthma(Confirmed) Active Frequent headaches(Confirmed) Active 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
--- OUTSIDE RECORDS SUMMARY | 2022-12-29 16:26 | XMS_ITS | Continuity of Care Document ---
Author Name Unknown Organization [facility] Address [address] [place] [address]- Care Team Providers Care Alarm Mechanism Adjuster Name Role Phone Marbin GRIFFIN, Johanna Gomes Primary Care Physician [phone] Encounter [facility] Date(s): 05/15/20 - 06/14/[address] [address]- Allergies, Adverse Reactions, Alerts Substance Reaction Severity [...] Refills, Maintenance, 02/09/20 9:15:00 EDT, Tablet, [facility]/pharmacy #[id number], 1 tablet By Mouth Daily, 153.05, cm, 01/20/20 9:40:00 EDT, Height Start Date: 02/09/20 Status: Ordered Singulair 5 mg oral tablet, chewable 5 mg, 1, tablet, Chew, Daily in PM, # 90 tablet, Refills 3, Tot. Refills 3, Maintenance, 12/23/19 16:44:00 EDT, Route to Pharmacy Electronically, [facility]/pharmacy #[id number], 153.05, cm, 12/23/19 15:28:00 EDT, Height [...]
--- OUTSIDE RECORDS SUMMARY | 2022-12-29 16:26 | XMS_ITS | Continuity of Care Document ---
Author Name Unknown Organization [facility] Address [address] [place] [address]- Care Team Providers Care Fire Sprinkler Designer Name Role Phone Marbin GRIFFIN, Johanna Gomes Primary Care Physician [phone] Encounter [facility] Date(s): 07/29/22 - 08/28/[address] [address]- Allergies, Adverse Reactions, Alerts Substance Reaction Severity [...] 11:32:00 EST, Route to Pharmacy Electronically, [facility]/pharmacy #[id number], Partial fill upon patient request if the [...] Team Personnel Name: Johanna Zazueta MD Position: [facility] Outreach Member Role: PCP Address: Address: [address] [place] [address]- Care Team Related Persons Name: DARCY PIKE Address: [address] Address: [address] [address] [place] Name: POLLY MEYER Address: [address] [address]
--- OUTSIDE RECORDS SUMMARY | 2022-12-29 16:26 | XMS_ITS | Continuity of Care Document ---
Author Name Unknown Organization [facility] Address [address] [place] [address]- Care Team Providers Care Marketing Sales Consultant Name Role Phone Marbin GRIFFIN, Johanna Gomes Primary Care Physician Encounter [facility] Date(s): 07/17/22 - 08/16/[address] [address]- Allergies, Adverse Reactions, Alerts Substance Reaction Severity [...] 07/17/22 11:32:00 EST, Route to Pharmacy Electronically, [facility]/pharmacy #[id number], Partial fill upon patient request if the [...] Personnel Name: Marbin GRIFFIN, Johanna Gomes Position: S Outreach Member Role: PCP Address: Address: [address] [place] [address]- Care Team Related Persons Name: DARCY PIKE Address: Address: [address] [address] [place] Name: POLLY MEYER Address: [address] [address]
--- OUTSIDE RECORDS SUMMARY | 2022-12-29 16:26 | XMS_ITS | Continuity of Care Document ---
Author Name Unknown Organization [facility] Address [address] [place] [address]- Care Team Providers Care Electrical Repairer Name Role Phone Johanna Zazueta MD Primary Care Physician Encounter [facility] [id number] Date(s): 06/08/20 - 08/06/[address] [address]- Attending Physician: Tracie Knight CNM Admitting Physician: [...] 3 Refills, Maintenance, 07/10/20 6:28:00 EST, Tablet, [facility]/pharmacy #[id number], Partial fill upon patient request if the prescription is for a schedule II opioid drug., 153.05, cm, 07/10/20 3:41:00 EST, Heig... Start Date: 07/10/20 Status: Ordered Flovent HFA 110 mcg/inh inhalation aerosol 2 puffs, Inhalation, 2 times a day, # 12 Gm, 3 Refills, Maintenance, 04/14/20 14:38:00 EDT, Aerosol, [facility]/pharmacy #[id number], 153.05, cm, 04/14/20 13:55:00 EDT, Height Start Date: 04/14/20 Status: Ordered Multivitamins with Folic Acid 1 mg oral tablet 1 tablet, By Mouth, Daily, # 90 tablet, 3 Refills, Maintenance, 02/09/20 9:15:00 EDT, Tablet, [facility]/pharmacy #[id number], 1 tablet By Mouth Daily, 153.05, cm, 01/20/20 9:40:00 EDT, Height Start Date: 02/09/20 Status: Ordered Singulair 5 mg oral tablet, chewable 5 mg, 1, tablet, Chew, Daily in PM, # 90 tablet, Refills 3, Tot. 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
--- OUTSIDE RECORDS SUMMARY | 2022-12-29 16:26 | XMS_ITS | Continuity of Care Document ---
Author Name Unknown Organization [facility] Address [address] [place] [address]- Care Team Providers Care Manager Finance Name Role Phone Marbin GRIFFIN, Johanna Gomes Primary Care Physician [place] [facility] 03/24/20 - 04/23/[address] [address]- Allergies, Adverse Reactions, Alerts Substance Reaction Severity [...] Refills, Maintenance, 02/09/20 9:15:00 EDT, Tablet, [facility]/pharmacy #[id number], 1 tablet By Mouth Daily, 153.05, cm, 01/20/20 9:40:00 EDT, Height Start Date: 02/09/20 Status: Ordered Singulair 5 mg oral tablet, chewable 5 mg, 1, tablet, Chew, Daily in PM, # 90 tablet, Refills 3, Tot. Refills 3, Maintenance, 12/23/19 16:44:00 EDT, Route to Pharmacy Electronically, [facility]/pharmacy #[id number], 153.05, cm, 12/23/19 15:28:00 EDT, Height [...]
--- OUTSIDE RECORDS SUMMARY | 2022-12-29 16:26 | XMS_ITS | Continuity of Care Document ---
Author Name Unknown Organization [facility] Address [address] [place] [address]- Care Team Providers Care Sales Enablement Manager Name Role Phone Marbin GRIFFIN, Johanna Gomes Primary Care Physician Encounter [facility] Date(s): 07/30/22 - 08/30/[address] [address] Attending Physician: Not on Staff, [...] EST, Route to Pharmacy Electronically, [facility]/pharmacy #[id number], Partial fill upon patient request if the [...] Team Personnel Name: Johanna Zazueta MD Position: [facility] Outreach Member Role: PCP Address: Address: [address] [place] [address]- Care Team Related Persons Name: DARCY PIKE Address: [address] Address: [address] [address] [place] Name: POLLY MEYER Address: [address] [address]
--- OUTSIDE RECORDS SUMMARY | 2022-12-29 16:26 | XMS_ITS | Continuity of Care Document ---
Author Name Unknown Organization [facility] Address [address] [place] [address]- Care Team Providers Care Lion Tamer Name Role Phone Marbin GRIFFIN, Johanna Gomes Primary Care Physician Encounter [facility] [id number] Date(s): 12/01/20 - 12/31/[address] [address] Allergies, Adverse Reactions, Alerts Substance Reaction Severity [...] 3 Refills, Maintenance, 07/10/20 6:28:00 EST, Tablet, [facility]/pharmacy #[id number], Partial fill upon patient request if the prescription is for a schedule II opioid drug., 153.05, cm, 07/10/20 3:41:00 EST, Heig... Start Date: 07/10/20 Status: Ordered Colace sodium 100 mg oral capsule 100 mg, 1, capsule, By Mouth, 2 times a day, PRN, # 20 capsule, Refills 2, Tot. Refills 2, Maintenance, for constipation, 08/18/20 9:18:00 EST, Route to Pharmacy Electronically, [facility]/pharmacy #[id number], Partial fill upon patient request if the prescription... Start Date: 08/18/20 Status: Ordered Flovent HFA 110 mcg/inh inhalation aerosol 2 puffs, Inhalation, 2 times a day, # 12 Gm, 3 Refills, Maintenance, 04/14/20 14:38:00 EDT, Aerosol, [facility]/pharmacy #[id number], 153.05, cm, 04/14/20 13:55:00 EDT, Height Start Date: 04/14/20 Status: Ordered Multivitamins with Folic Acid 1 mg oral tablet 1 tablet, By Mouth, Daily, # 90 tablet, 3 Refills, Maintenance, 02/09/20 9:15:00 EDT, Tablet, [facility]/pharmacy #[id number], 1 tablet By Mouth Daily, 153.05, cm, 01/20/20 9:40:00 EDT, Height Start Date: 02/09/20 Status: Ordered Singulair 5 mg oral tablet, chewable 5 mg, 1, tablet, Chew, Daily in PM, # 90 tablet, Refills 3, Tot. Refills 3, Maintenance, 12/23/19 16:44:00 EDT, Route to Pharmacy Electronically, [facility]/pharmacy #[id number], 153.05, cm, 12/23/19 15:28:00 EDT, [...]
--- OUTSIDE RECORDS SUMMARY | 2022-12-29 16:26 | XMS_ITS | Continuity of Care Document ---
Author Name Unknown Organization [facility] Address [address] [place] [address]- Care Team Providers Care Colliery Clerk Name Role Phone Marbin GRIFFIN, Johanna Gomes Primary Care Physician [phone] Encounter [facility] Date(s): 07/11/22 - 11/08/[address] [address]- Attending Physician: Tracie Knight CNM Admitting Physician: [...] 07/17/22 11:32:00 EST, Route to Pharmacy Electronically, [facility]/pharmacy #[id number], Partial fill upon patient request if the prescriptio... Start Date: 07/17/22 Status: Ordered Colace sodium 100 mg oral capsule 100 mg, 1, capsule, By Mouth, 2 times a day, PRN, # 100 capsule, Refills 0, Tot. Refills 0, Maintenance, Constipation, 10/09/22 23:11:00 EDT, Route to Pharmacy Electronically, [facility]/pharmacy #[id number], Partial fill upon patient request [...] 1 Refills, Maintenance, 03/28/22 20:20:00 EDT, Inhaler, [facility]/pharmacy #[id number], Partial fill upon patient request [...] 100 capsule, 2 Refills, Maintenance, 03/05/22 15:39:00EDT, [facility]/pharmacy #[id number], Partial fill upon patient request [...] Team Personnel Name: Johanna Zazueta MD Position: [facility] Outreach Member Role: PCP Address: Address: [address] [place] [address]- Care Team Related Persons Name: DARCY PIKE Address: [address] Address: [address] [address] [place] Name: ANIBAL PIKE Address: [address] Address: [address] [address] [place] Name: POLLY MEYER Address: [address] [address]
--- OUTSIDE RECORDS SUMMARY | 2022-12-29 16:26 | XMS_ITS | Continuity of Care Document ---
Author Name Unknown Organization [facility] Address [address] [place] [address]- Care Team Providers Care Computer Hardware Developer Name Role Phone Marbin GRIFFIN, Johanna Gomes Primary Care Physician Encounter [facility] Date(s): 05/15/22 - 06/14/[address] [address]- Allergies, Adverse Reactions, Alerts Substance Reaction Severity [...] 2 Refills, Maintenance, 03/05/22 15:39:00EDT, [facility]/pharmacy #[id number], Partial fill upon patient request if [...] HOSPITAL Outreach Member Role: PCP Address: Address: [address] [place] [address]- Care Team Related Persons Name: DARCY PIKE Address: [address] Address: [address] [address] [place] Name: POLLY MEYER Address: [address] [address]
--- OUTSIDE RECORDS SUMMARY | 2022-12-29 16:26 | XMS_ITS | Continuity of Care Document ---
Author Name Unknown Organization [facility] Address [address] [place] [address]- Care Team Providers Care Environmental Planner Name Role Phone Marbin GRIFFIN, Johanna Gomes Primary Care Physician Encounter [facility] Date(s): 05/20/22 - 06/19/[address] [address]- Allergies, Adverse Reactions, Alerts Substance Reaction Severity [...] capsule, 2 Refills, Maintenance, 03/05/22 15:39:00EDT, [facility]/pharmacy #[id number], Partial fill upon patient [...] Team Personnel Name: Johanna Zazueta MD Position: [facility] Outreach Member Role: PCP Address: Address: [address] [place] [address]- Care Team Related Persons Name: DARCY PIKE Address: [address] Address: [address] [address] [place] Name: POLLY MEYER Address: [address] [address]
--- OUTSIDE RECORDS SUMMARY | 2022-12-29 16:26 | XMS_ITS | Continuity of Care Document ---
Author Name Unknown Organization [facility] ter Address [address] [place] [address]- Care Team Providers Care Family Health Nurse Practitioner Name Role Phone Johanna Zazueta MD Primary Care Physician Encounter [facility] [place] Date(s): 09/30/22 - 09/30/[address] [address] Discharge Disposition: A-D/C Home Attending Physician: Jud Rossi MD Admitting Physician: Jud Rossi MD Referring Physician: Jud Rossi MD Allergies, Adverse Reactions, Alerts Substance Reaction [...] 07/17/22 11:32:00 EST, Route to Pharmacy Electronically, [facility]/pharmacy #[id number], Partial fill upon patient request if the [...] class I Confirmed Active 1Managed by PCP Vital Signs Most recent to oldest [Reference Range]: 1 Height 156 cm (09/30/22 2:03 AM) Respiratory Rate [16-30 br/min] 18 br/mi n (09/30/22 2:03 AM) Mode of Delivery (Oxygen) Room air (09/30/22 2:03 AM) Blood pressure sites Arm, right (09/30/22 2:03 AM) Temperature Route Oral (09/30/22 2:03 AM) Social History Social History Type Response Smoking Status Never (less than 100 in lifetime) entered on: 08/18/20 Sex Note * Lourdes Sewell RN: PERFORM Event Display: Discharge/Transfer Note Hospital Authored Date: [id number] Nursing Discharge Note Entered On: 09/30/2022 5:11 EDT Performed On: 09/30/2022 5:11 EDT by Lourdes Sewell RN Nursing Discharge Note 2 Discharge Time : 09/30/2022 5:11 EDT Discharge Level of Care at Discharge : Home/Mcfp/Foster Care Patient Left Unit Via : Ambulatory Patient Accompanied Off Unit with : Parent DC Instructions Provided & Signed by Pt : Yes Patient Understands D/C Instructions : Yes Patient Instructions Discharge Signed : Yes Did Pt have Specialty Bed or Wound Vac : No Lourdes Sewell RN - 09/30/2022 5:11 EDT * Event Display: Discharge/Transfer Note Hospital Authored Date: [id number] * Lourdes Sewell RN: PERFORM Event Display: Patient Education/Instruction Authored Date: [id number] Inpatient Adult Discharge Instructions [address] [address] Name: NANETTE ROSS : 2000 Visit: 09/30/2022 01:47:00 Current Date: 09/30/2022 05:04 Account: [id number] Inpatient Adult Discharge Instructions We would like to thank you for allowing us to assist you with your healthcare needs. The following includes patient education materials and information regarding your injury/illness. Our entire staffstrives to provide an excellent experience for our patients and their families. PLEASE ENSURE YOU FOLLOW-UP PER THE INSTRUCTIONS BELOW! ?? YOUR OPINION IS IMPORTANT TO US! Please complete the survey you may receive by mail or email. Your feedback will be used to make improvements to the healthcare experiences of our patients and their families. Surveys are administered by [employer] ?? If further treatment with your primary care physician or another doctor is recommended, it is important for you to keep the appointment. Call your primary care physician or return to the Emergency Department immediately if your condition worsens, fails to improve, or new symptoms develop. If you need to find a doctor, you can call [facility] Direct Link for a referral at [phone] or toll free at [phone] or log in to [email or web address].. ?? You can view and manage your care through the patient portal or by using a [facility] care [facility] of your choosing. [employer] is a website that allows you to securely view your medical information including your hospital discharge summary, office visit summaries, medications and follow-up visits. You can also request appointments, renew medications, and request access to your medical information using a [facility] care [facility] of your choosing, or just ask a question. You can enroll at [email or web address] or register during your next office visit. You have been discharged from [facility], Patient Care Unit: WETU1. If you have any questions regarding these instructions after you leave, please call us and we will be happy to assist you. [facility] Your Care Team Attending Physician Flo GRIFFIN, Jud Peter Tests Performed Below is a partial list of the tests performed during your hospitalization. You may have had other tests and procedures not included in this list. Please discuss all test results with your provider. Primary Care Provider Johanna Zazueta MD Advance Directive Patient has a Designated Caregiver: No Discharge Vitals Respiratory Rate: 18 br/min Height: 156 cm Studies Pending All tests and labs ordered during this hospital stay have been completed unless listed below. Please discuss all pending results with your provider listed above in these instructions. ?? No incomplete studies found What to do next Instructions From Your Doctor Discharge Orders Scheduled Follow-Up Appointments Friday 2:00 PM EDT ?? With: Pattie Porter CNM Where: [facility] [address] [place] [address] - Friday 2:00 PM EDT ?? With: Tracie Knight CNM Where: [facility] [address] [place] [address] - Friday 1:40 PM EDT ?? With: Tracie Kinght CNM Where: [facility] [address] [place] [address] - You Need to Schedule the Following Appointments Follow Up with??[facility] [phone] When?? Discharge Medications NANETTE ROSS :2000 Visit Date:09/30/2022 Medications: Please continue your medications until treatment is completed or stopped by your provider. Medications not listed below should be discontinued. Discuss any questions related to medications with your provider. What How Much When Why Instructions Next Dose Unchanged Albuterol (ProAir HFA 90 mcg/ inh inhalation aerosol with adapter) Unchanged Docusate (Colace sodium 100 mg oral capsule) 1 capsule Oral Twice a day as needed for for constipation Constipation in Unchanged Durable Medical Equipment (Peak Flow Meter (Adult)) See instructions Check peak flow daily and during wheezing. Normal 380-550. ?? Unchanged Fluticasone (Flovent HFA 110 mcg/ inh inhalation aerosol) 2 puff(s) Inhalation Twice a day Unchanged Fluticasone (Flovent HFA 44 mcg/ inh inhalation aerosol) 88 Microgram Inhalation Twice a day Unchanged Multivitamin, ( Multivitamins with Folic Acid 1 mg oral capsule) See instructions TAKE ONE DAILY BY MOUTH ?? Test Results Below is a partial list of the most recent Laboratory test results done prior to this discharge. You may have had other tests and procedures not included in this list. Please discuss all test resultswith your provider. Allergies (NKA means No Known Allergies) Latex Problems Active Problems??(6) ADHD?? Asthma?? COVID-19 vaccine series completed?? Eczema?? Obese class I? Education Materials Below is the list of Educational Leaflet Providered with your Discharge Instructions. Recognizing Labor?? Kick Counts?? Adapting to : Third Trimester?? Valuables and Belongings I fully understand and agree that [facility] accepts no responsibility for all my personal property including clothing, toilet articles, radios, jewelry, dentures, hearing aids, rings, money, or any other property that is in my possession or is brought to me after admission. I understand certain valuables may be placed in a hospital safe for a short period of time. I understand that the hospital is not liable for loss or damage due to accident, fire, or other natural occurrence while said property is in the safe. I accept full responsibility for any personal property that I keep with me, and will not hold the hospital responsible in case of loss or disappearance. I acknowledge that i have been encouraged to send valuables and belongings home. ? Other Discharge Information ? Pulmonary Rehab Status?? Pulmonary Rehab Discharge Status?? Respiratory Rate: 18 br/min ? Common Emergency Awareness Tips IS IT A STROKE? Act FAST and Check for these signs: FACE Does the face look uneven? ARM Does one arm drift down? SPEECH Does their speech sound strange? TIME Call at any sign of stroke ?? Heart Attack Signs Chest discomfort: Most heart attacks involve discomfort in the center of the chest and lasts more than a few minutes, or goes away and comes back. It can feel like uncomfortable pressure, squeezing, fullness or pain. Discomfort in upper body: Symptoms can include pain or discomfort in one or both arms, back, neck, jaw or stomach. Shortness of breath: With or without discomfort. Other signs: Breaking out in a cold sweat, nausea, or lightheaded. Remember, MINUTES DO MATTER. If you experience any of these heart attack warning signs, call to get immediate medical attention! ?? Smoking can increase your chances of developing chronic health problems and can cause harmful effects to other family members in your house. If you smoke, you are strongly encouraged to quit. Please call [facility] Direct Link at [phone] or [phone] ([phone]) or log in to [email or web address] for referrals to smoking cessation programs. ?? 961 Suicide & Crisis Lifeline is available 06/01 if you or someone you know needs to find a reason to keep living. By calling 172 you'll be connected to a skilled, trained counselor at a crisis center in your area. INPATIENT DISCHARGE INSTRUCTIONS SIGNATURE PAGE ROSS, NANETTE Location:[facility] Registration Date and Time:09/30/2022 01:47 EDT Primary Care Physician: Marbin GRIFFIN, Johanna Gomes, I NANETTE ROSS, have received the above patient education materials/instructions and have verbalized understanding. If ambulance or transport services are being used I further acknowledge beinggiven a choice of service. ?? If you need to contact me, please call me at this number: . Patient/Appellate Court Clerk Name: Patient/Appellate Court Clerk Signature: Relationship to Patient: Witness Name/Signature: Date: * Donaot MAYBERRY, Lourdes Lara: PERFORM Event Display: Patient Education Leaflets Authored Date: [id number] Recognizing Labor ?? 23851 Recognizing Labor The beginning of labor is the beginning of . You???ll start to feel strong contractions. That???s when the muscles of your uterus tighten up to help push your baby out during . Yes, labor has likely started?? Signs of labor include: ??? Your contractions are getting stronger and more painful instead of weaker. You???ll likely feel them throughout your whole uterus. ??? Your contractions are regular. This means that you feel them about every 5 to 10 minutes. And they are getting closer together. ??? You have pink- colored or blood-streaked fluid from your vagina. ??? You feel that the baby has dropped lower in your pelvis? Your water breaks. It may be a gush or a slow trickle of clear fluid from your vagina. ?? No, it???s likely not real labor?? Signs of false labor include: ??? Your contractions aren???t regular or strong. ??? You feel the contractions only in your lower uterus. ??? Your contractions go away when you walk or change position. ??? Your contractions go away after drinking fluids. ?? When to call your healthcare provider Call your healthcare provider or clinic right away if you notice any of these signs: ??? Fluid fromyour vagina, with or without contractions. ??? Bleeding heavy enough that you need a sanitary pad. ??? You don???t feel your baby moving as much as before. ?? Note Contractions are timed by both of these measures: ??? The length of each contraction from its startto its finish. ??? How far apart the contractions are ???the time between the start of one contraction and the start of the next contraction. ?? Last Reviewed Date: 2022 ?? 1438-4041 [employer]. All rights reserved. This information is not intended as a substitute for professional medical care. Always follow your healthcare professional's instructions. ?? * Donato MAYBERRY, Lourdes Lara: PERFORM Event Display: Patient Education Leaflets Authored Date: [id number] Kick Counts ?? 83512 Kick Counts It???s normal to worry about your baby???s health. Generally, you will feel your baby start to movein your 2nd trimester at around 16 to 24 weeks. Getting to know the pattern of your baby's movements is one way to know what's normal for you and baby. This is called a kick count. Talk with your healthcare provider about kick counts and your specific situation. Always follow your provider's instructions. How to count kicks Here is just one way to do kick counts. Always follow your healthcare provider's instructions. Starting at 28 weeks, count your baby's movements daily. Time how long it takes you to feel 10 kicks, flutters, swishes, or rolls. Ideally, you want to feel at least 10 movements in 2 hours. You will likely feel 10 movements in less time than that. Here are tips for counting kicks: ??? Choose a time when the baby is active, such as after a meal.? Sit comfortably or lie on your side.? The first time the baby moves,??write down??the time.? Count each movement until the baby has moved?? 10??times. This can take from 20 minutes to 2??hours.? If you haven't felt 10 kicks by the end of the second hour, wait a few hours. Then try again. ??? Try to do it at the same time each day. ?? When to call your healthcare provider Follow your provider's instructions about when to call about your baby's movements. Don't hesitate to call if you have concerns. Call your healthcare provider?? right away??if: ??? You do a couple sets of kick counts during the day and your baby moves fewer than 10??times in??2??hours. ??? Your baby moves much less often than on the??days before. ??? You haven't felt your baby move all day. ?? Last Reviewed Date: 2022 ?? 1821-8571 [employer]. All rights reserved. This information is not intended as a substitute for professional medical care. Always follow your healthcare professional's instructions. ?? * Donato MAYBERRY, Lourdes Lara: PERFORM Event Display: Patient Education Leaflets Authored Date: [id number] Adapting to : Third Trimester ?? [address] Adapting to : Third Trimester Although common during , some discomforts may seem worse in the final weeks. Simple lifestyle changes can help. Take care of yourself. And ask your partner to help out with small tasks. Limiting leg problems Ways to combat leg issues: ??? Wear support hose all day. ??? Don't wear snug shoes or clothes thatbind, such as tight pants and socks with elastic tops. ??? Sit with your feet and legs raised often. ?? Caring for your breasts Tips to follow include: ??? Wash with plain water. Don't use harsh soaps or rubbing alcohol. They may cause dryness. ??? Wear a nursing bra for extra support. It can also hide any leaks from your nipples. ?? Controlling hemorrhoids Ways to prevent hemorrhoids include: ??? Eat foods that are high in fiber. Also exercise and drink enough fluids. This will reduce constipation and hemorrhoids. ??? Sleep and nap on your side. This limits pressure on the veins??of your rectum. ??? Try not to stand or sit for long periods. ?? Controlling back pain As your body changes during , your back must work in new ways. Back pain has many causes. Physical changes in your body can strain your back and its supporting muscles. Also hormones increase during . This can affect how??your muscles and joints work together. All of these changescan lead to pain. Pain may be felt in the upper or lower back. Pain is also common in the pelvis. Some womenhave sciatica. This is pain caused by pressure on the sciatic nerve running down the back of the leg. Ice or heat may help. Your provider may advise massage therapy or a chiropractor. Sleep on your left side with a pillow between your knees. Use a brace or support device. Ask your provider for speci fic tips and exercises to help control your back pain. ?? Tips to help you rest Good rest and sleep will help you feel better. Here are some ideas: ??? Ask your partner to massageyour shoulders, neck, or back. ??? Limit the errands you do each day. ??? Lie down in the afternoonor after work for a few minutes. ??? Take a warm bath before you go to sleep. ??? Drink warm milk or teas without caffeine. ??? Don't drink coffee, black tea, and cola. ?? Stopping heartburn ??? Don't eat spicy, greasy, fried,??or acidic foods. ??? Eat small amounts more often. Eat slowly. ??? Wait 2 hours after eating before lying down. ??? Sleep with your upper body raised 6 inches. ?? Managing mood swings Ways to manage mood swings include: ??? Know that mood changes are normal. ??? Exercise often, but get plenty of rest. ??? Address any concerns and limit stress. Talking to your partner, other women,or your healthcare provider may help. ?? Dealing with urinary frequency Tips to deal with having to urinate often include: ??? Drink plenty of water all day. But if you drink a lot in the evening, you may have to get up more in the night. ??? Limit coffee, black tea, andcola. ?? How daily issues affect your health Many things in your daily life impact your health. This can include transportation, money problems,housing, access to food, and children's court magistrate. If you can???t get to medical appointments, you may not receive the care you need. When money is tight, it may be difficult to pay for medicines. And living far from a grocery store can make it hard to buy healthy food. If you have concerns in any of these or other areas, talk with your healthcare team. They may know of local resources to assist you. Or they may have a staff person who can help. ?? Last Reviewed Date: 2020 ?? 7911-6502 [employer]. All rights reserved. This information is not intended as a substitute for professional medical care. Always follow your healthcare professional's instructions. ?? Patient Care team information Care Team Personnel Name: Marbin GRIFFIN, Johanna Gomes Position: [facility] Outreach Member Role: PCP Address: Address: [address] [place] [address]- Name: Donato MAYBERRY, Lourdes Lara Position: [facility] OB RN Member Role: Patient Care Provider Care Team Related Persons Name: DARCY PIKE Address: [id number] Address: [address] [address] [place] Name: BETSY POLLY Address: [address] [address]
--- OUTSIDE RECORDS SUMMARY | 2022-12-29 16:26 | XMS_ITS | Continuity of Care Document ---
Author Name Unknown Organization [facility] Address [address] [place] [address]- Care Team Providers Care Plate Stacker Hand Name Role Phone Johanna Zazueta MD Primary Care Physician Encounter [facility] [place] ACCT R [id number] Date(s): 05/29/20 - 07/01/[address] [address]- Attending Physician: Not on Staff, Attending MD Referring Physician: Johanna Zazueta MD Allergies, Adverse [...] 3 Refills, Maintenance, 04/14/20 14:38:00 EDT, Aerosol, [facility]/pharmacy #[id number], 153.05, cm, 04/14/20 13:55:00 EDT, Height Start Date: 04/14/20 Status: Ordered Multivitamins with Folic Acid 1 mg oral tablet 1 tablet, By Mouth, Daily, # 90 tablet, 3 Refills, Maintenance, 02/09/20 9:15:00 EDT, Tablet, [facility]/pharmacy #[id number], 1 tablet By Mouth Daily, 153.05, cm, 01/20/20 9:40:00 EDT, Height Start Date: 02/09/20 Status: Ordered Singulair 5 mg oral tablet, chewable 5 mg, 1, tablet, Chew, Daily in PM, # 90 tablet, Refills 3, Tot. Refills 3, Maintenance, 12/23/19 16:44:00 EDT, Route to Pharmacy Electronically, [facility]/pharmacy #[id number], 153.05, cm, 12/23/19 15:28:00 EDT, Height [...]
--- OUTSIDE RECORDS SUMMARY | 2022-12-29 16:26 | XMS_ITS | Continuity of Care Document ---
Author Name Unknown Organization [facility] Address [address] [place] [address]- Care Team Providers Care Digital Watch Assembler Name Role Phone Johanna Zazueta MD Primary Care Physician [phone] Encounter [facility] [place]CT R [id number] Date(s): 04/14/20 - 06/11/[address] [address]- Attending Physician: Not on Staff, Attending MD [...] 3 Refills, Maintenance, 02/09/20 9:15:00 EDT, Tablet, [facility]/pharmacy #[id number], 1 tablet By Mouth Daily, 153.05, cm, 01/20/20 9:40:00 EDT, Height Start Date: 02/09/20 Status: Ordered Singulair 5 mg oral tablet, chewable 5 mg, 1, tablet, Chew, Daily in PM, # 90 tablet, Refills 3, Tot. Refills 3, Maintenance, 12/23/19 16:44:00 EDT, Route to Pharmacy Electronically, [facility]/pharmacy #[id number], 153.05, cm, 12/23/19 15:28:00 EDT, [...]
--- OUTSIDE RECORDS SUMMARY | 2022-12-29 16:26 | XMS_ITS | Continuity of Care Document ---
Author Name Unknown Organization [facility] Address [address] [place] [address]- Care Team Providers Care Regulatory Compliance Coordinator Name Role Phone Marbin GRIFFIN, Johanna Gomes Primary Care Physician [place] [facility] [place] 08/24/22 - 09/25/[address] [address]- Attending Physician: Anila Clements CNM Admitting Physician: Anila Clements CNM Allergies, Adverse Reactions, Alerts Substance Reaction [...] 07/17/22 11:32:00 EST, Route to Pharmacy Electronically, [facility]/pharmacy #[id number], Partial fill upon patient request if the [...] Team Personnel Name: Johanna Zazueta MD Position: [facility] Outreach Member Role: PCP Address: Address: [address] [place] [address]- Care Team Related Persons Name: DARCY PIKE Address: [address] Address: [address] [place] Name: POLLY MEYER Address: [address] [address]
--- OUTSIDE RECORDS SUMMARY | 2022-12-29 16:26 | XMS_ITS | Continuity of Care Document ---
Author Name Unknown Organization [facility] Address [address] [place] [address]- Care Team Providers Care Junior Systems Engineer Name Role Phone Johanna Zazueta MD Primary Care Physician Encounter [facility] [place] ACCT R [id number] Date(s): 01/20/20 - 03/18/[address] [address]- [facility] Attending Physician: Not on Staff, Attending MD [...] 3 Refills, Maintenance, 02/09/20 9:15:00 EDT, Tablet, [facility]/pharmacy #[id number], 1 tablet By Mouth Daily, [...]
--- OUTSIDE RECORDS SUMMARY | 2022-12-29 16:26 | XMS_ITS | Continuity of Care Document ---
Author Name Unknown Organization [facility] Address [address] [place] [id number]- Care Team Providers Care Repair Servicer Name Role Phone Marbin GRIFFIN, Johanna Gomes Primary Care Physician [phone] [id number] Date[facility] 08/23/20 - 11/01/[address] [address]- Attending Physician: Not on Staff, Attending MD [...] Maintenance, 07/10/20 6:28:00 EST, Tablet, [facility]/pharmacy #[id number], Partial fill upon patient request if [...] EST, Route to Pharmacy Electronically, [facility]/pharmacy #[id number], Partial fill upon patient request if the prescription... Start Date: 08/18/20 Status: Ordered Flovent HFA 110 mcg/inh inhalation aerosol 2 puffs, Inhalation, 2 times a day, # 12 Gm, 3 Refills, Maintenance, 04/14/20 14:38:00 EDT, Aerosol, [facility]/pharmacy #[id number], 153.05, cm, 04/14/20 13:55:00 EDT, Height Start Date: 04/14/20 Status: Ordered Multivitamins with Folic Acid 1 mg oral tablet 1 tablet, By Mouth, Daily, # 90 tablet, 3 Refills, Maintenance, 02/09/20 9:15:00 EDT, Tablet, [facility]/pharmacy #[id number], 1 tablet By Mouth Daily, 153.05, cm, 01/20/20 9:40:00 EDT, Height Start Date: 02/09/20 Status: Ordered Singulair 5 mg oral tablet, chewable 5 mg, 1, tablet, Chew, Daily in PM, # 90 tablet, Refills 3, Tot. 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
--- OUTSIDE RECORDS SUMMARY | 2022-12-29 16:27 | XMS_ITS | Continuity of Care Document ---
Author Name Unknown Organization [facility] Address [address] [place] [id number]- Care Team Providers Care Bistro Server Name Role Phone Marbin GRIFFIN, Johanna Gomes Primary Care Physician [place] [facility] [place] Date(s): 08/22/20 - 09/21/[address] [address]- Allergies, Adverse Reactions, Alerts Substance Reaction Severity [...] Refills, Maintenance, 07/10/20 6:28:00 EST, Tablet, [facility]/pharmacy #[id number], Partial fill [...] 08/18/20 9:18:00 EST, Route to Pharmacy Electronically, [facility]/pharmacy #[id number], Partial fill upon patient request if the prescription... Start Date: 08/18/20 Status: Ordered Flovent HFA 110 mcg/inh inhalation aerosol 2 puffs, Inhalation, 2 times a day, # 12 Gm, 3 Refills, Maintenance, 04/14/20 14:38:00 EDT, Aerosol, [facility]/pharmacy #[id number], 153.05, cm, 04/14/20 13:55:00 EDT, Height Start Date: 04/14/20 Status: Ordered Multivitamins with Folic Acid 1 mg oral tablet 1 tablet, By Mouth, Daily, # 90 tablet, 3 Refills, Maintenance, 02/09/20 9:15:00 EDT, Tablet, [facility]/pharmacy #[id number], 1 tablet By Mouth Daily, 153.05, cm, 01/20/20 9:40:00 EDT, Height Start Date: 02/09/20 Status: Ordered Singulair 5 mg oral tablet, chewable 5 mg, 1, tablet, Chew, Daily in PM, # 90 tablet, Refills 3, Tot. 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
--- OUTSIDE RECORDS SUMMARY | 2022-12-29 16:27 | XMS_ITS | Continuity of Care Document ---
Author Name Unknown Organization [facility] Address [address] [place] [id number]- Care Team Providers Care Metalworker Name Role Phone Johanna Zazueta MD Primary Care Physician [phone] En[place] [facility] [place] [id number] Date(s): 05/29/22 - 06/28/22 [facility] [address] [place] [address] Attending Physician: Admtr, [id number] Admitting Physician: Admtr, [id number] Referring Physician: Admtr, [...] 100 capsule, 2 Refills, Maintenance, 03/05/22 15:39:00EDT, [facility]/pharmacy #[id number], Partial fill upon patient [...] Team Personnel Name: Johanna Zazueta MD Position: [facility] Outreach Member Role: PCP Address: Address: [address] [place] [address]- Care Team Related Persons Name: DARCY PIKE Address: [id number] Address: [address] [address] [place] Name: POLLY MEYER Address: [address] [address]
--- OUTSIDE RECORDS SUMMARY | 2022-12-29 16:27 | XMS_ITS | Continuity of Care Document ---
Author Name Unknown Organization [facility] Address [address] [place] [id number] Care Team Providers Care Product Representative Name Role Phone Marbin GRIFFIN, Johanna Gomes Primary Care Physician [place] [facility] [place]22 - 10/10/[address] [id number] Discharge Disposition: A-D/C Home Attending Physician: Marina Castro MD Admitting Physician: Marina Castro MD Referring Physician: Marina Castro MD Allergies, Adverse Reactions, Alerts Substance Reaction [...] Date: 10/09/22 Stop Date: 10/16/22 Status: Ordered Acetaminophen Tablet 650 mg, Tablet, By Mouth, Every 4 hours, PRN for Pain , Mild, (1-3), may give 325mg per patient preference and re-dose with 325mg within 4 hours, if needed. Patient should only receive a total of 650mg of Acetaminophen every 4 hours., Routine, 10/08... Start Date: 10/08/22 Stop Date: 10/11/22 Status: Discontinued Colace sodium 100 mg oral capsule 100 mg, 1, capsule, By Mouth, 2 times a day, PRN, # 60 capsule, Refills 1, Tot. Refills 1, Maintenance, for constipation, 07/17/22 11:32:00 EST, Route to Pharmacy Electronically, [facility] #[id number], Partial fill upon patient request if the prescriptio... Start Date: 07/17/22 Status: Ordered Colace sodium 100 mg oral capsule 100 mg, 1, capsule, By Mouth, 2 times a day, PRN, # 100 capsule, Refills 0, Tot. Refills 0, Maintenance, Constipation, 10/09/22 23:11:00 EDT, Route to Pharmacy Electronically, [facility] #[id number], Partial fill upon patient request if [...] 1 Refills, Maintenance, 03/28/22 20:20:00 EDT, Inhaler, [facility] #[id number], Partial fill upon patient request if [...] Date: 10/09/22 Stop Date: 10/16/22 Status: Ordered metroNIDAZOLE 500 mg oral tablet 1 tablet = 500 mg, By Mouth, Every 12 hours, for 7 days, # 14 tablet, 0 Refills, Acute 10/17/22 6:58:00 EDT, 10/10/22 6:58:00 EDT, Tablet, Partial fill upon patient request if the prescription is fora schedule II opioid drug. Start Date: 10/10/22 Stop Date: 10/17/22 Status: Ordered Peak Flow Meter (Adult) See [...] capsule, 2 Refills, Maintenance, 03/05/22 15:39:00EDT, [facility] #[id number], Partial fill upon patient request if [...] to oldest [Reference Range]: 1 2 3 Height 152 cm (10/10/22 1:33 PM) 152 cm (10/10/22 10:52 AM) 152 cm (10/10/22 9:30 AM) Weight 79.2 kg (10/08/22 7:23 PM) Oxygen Saturation [94-100 %] 97 % (10/10/22 12:40 AM) 99 % (10/09/22 4:30 AM) 97 % (10/08/22 9:40 PM) Pulse Rate [55-90 bpm] 75 bpm (10/10/22 9:30 AM) 87 bpm (10/10/22 12:40 AM) 78 bpm (10/09/22 3:15 PM) Body Mass Index [18.5-24.99 kg/m2] 34.28 kg/m2 *>HHI* (10/08/22 7:23 PM) Blood Pressure [90-138/55-84 mm Hg] 111/60mm Hg (10/10/22 9:30 AM) 99/66mm Hg (10/10/22 6:30 AM) 105/70mm Hg (10/10/22 12:40 AM) Respiratory Rate [16-30 br/min] 18 br/min (10/10/22 9:30 AM) 18 br/min (10/10/22 12:40 AM) 18 br/min (10/09/22 9:27 PM) Temperature [96.8-100.4 DegF] 98.1 DegF (10/10/22 10:52 AM) 98.2 DegF (10/10/22 9:30 AM) 97.4 DegF (10/10/22 12:40 AM) Mode of Delivery (Oxygen) Room air (10/10/22 12:40 AM) Room air (10/09/22 4:30 AM) Room air (10/08/22 9:40 PM) Blood pressure sites Arm, right (10/10/22 12:40 AM) Arm, right (10/09/22 3:15 PM) Arm, right (10/09/22 8:30 AM) Temperature Route Oral (10/10/22 10:52 AM) Oral (10/10/22 9:30 AM) Oral (10/10/22 12:40 AM) Dry Weight 79.2 kg (10/08/22 7:23 PM) Social History Social History Type Response Smoking Status Never (less than 100 in lifetime) entered on: 08/18/20 Sex History and physical note * Marina Castro MD: MODIFY, MODIFY Marina Castro MD: MODIFY Mariama Hyde DO: MODIFY, PERFORM Mariama Hyde DO: PERFORM Event Display: History and Physical Hospital Authored Date: [id number] Patient: ??NANETTE ROSS ? Age:??22 Years?Sex:??Female?:??2000?? OB Reason for Admission OB Reason for Admission Reason for admission: Labor LMP/EGA/AMARILIS Gestational Age (EGA) and AMARILIS? * Note: EGA calculated as of 10/08/2022 ?? AMARILIS:??10/13/2022?EGA*:??39 weeks 2 days ? History?(1,0,0,1)?Method:??Last Menstrual Period??(01/06/2022) History of Present Illness Patient is a??22 year old @??39+2w gestation??presenting in active labor found to be fully dilated and intact in [facility]. She was brought up to labor and delivery. Review of Systems All systems reviewed and negative except as noted above in HPI. Physical Exam Vitals & Measurements T:??97.4?F ?? HR:??63(Monitored)?? TX:??63?? RR:??18?? BP:??108/63?? WT:??4.350??kg?? Constitutional: Normal affect, acute distress due to painful contractions, Well- developed, Well-nourished.?? HEENT: Normocephalic, atraumatic. Lungs: Non-Labored, able to speak in full sentences. Skin: No rash or jaundice.?? Neurological/Psychiatric: appearance appropriate, mood and affect stable for situation. OB Assessment Baby A Baseline:137 Membranes ROM Date, Time:10/08/2022 19:17 EDT Amniotic Fluid Amount:Moderate Amniotic Fluid Color/Description:Clear Membrane Status:SROM Cervical Cervical [id number] cm Assessment/Plan Assessment:??Patient is a 22 year old @ 39+2w gestation presenting in active labor found to befully dilated and intact in [facility], +1 station. GBS negative. Plan to start pushing on arrival to theroom. ?? Normal labor (O80):?? Admit to LDRP CBC, lav hold Fully dilated, starting to push upon arrival to room ?? Bacterial vaginosis (N76.0):?? Diagnosed yesterday, has not started treatment yet Will defer??treatment??unless symptomatic ?? Asthma (J45.909):?? will order budesonide for now. will see if someone can bring in home Flovent??and could change to that once verified Albuterol PRN ?? Rubella non-immune status, antepartum (O09.899):?? MMR vaccine ? Dr.??Gloria and [facility] team aware. OB History History?(1,0,0,1)? # 1 ?Baby 1 ?Outcome Date:??07/08/2020?Outcome or Result:??Vaginal ?Gest Age:??37 weeks ? Outcome:??Live ? Sex:??Male?Wt:?3029 g ?Gal Labor:??2 hr 23 min ?Hospital:??[facility] Labs Labs Labs & Tests Antibody Screen: Negative (03/18/22) Chlamydia Trachomatis Amplified Probe: NEGATIVE (09/18/22) Down Syndrome Age Risk FTS: Age Risk: (04/03/22) Down Syndrome Scrn Risk FTS: Screening Risk: (04/03/22) Glucose 50 Gm, +60 Minutes: 107 mg/dL (07/26/22) Hct: 37.4 % (08/07/22) Hepatitis B Surface Antigen: NEGATIVE (03/18/22) Hepatitis C Ab: NEGATIVE (03/18/22) Hgb: 12.4 Gm/dL (08/07/22) HIV 4th Generation Ab-Ag Result: NEGATIVE (03/18/22) RPR Titer Result: NOT INDICATED (08/07/22) Rubella IgG Ab: EQUIVOCAL (03/18/22) Syphilis Screen by KATERINE: NEGATIVE (08/07/22) Trisomy 18 Scrn Risk FTS: Screening Risk: (04/03/22) Urine Culture: Urine Culture (09/18/22) Varicella IgG Ab: POSITIVE (03/18/22) Problem List Active Active Problem List ADHD: (Medical) Asthma: (Medical) Managed by PCP COVID-19 vaccine series completed: (Medical) Eczema: (Medical) Obese class I: (Medical) : (Obstetric) (01/06/22) Procedure/Surgical History Ages [facility] Teeth Extraction: 2019 Home Medications Albuterol Docusate: 100 mg = 1 capsule, By Mouth, 2 times a day, PRN (for constipation) Durable Medical Equipment: See Instructions, Check peak flow daily and during wheezing. Normal 380-550. Fluconazole: 150 mg = 1 tablet, By Mouth, Once, epeat dose if still having symptoms in 72 hours Fluticasone: 88 mcg, Inhalation, 2 times a day Fluticasone: 2 puffs, Inhalation, 2 times a day Metronidazole: 500 mg = 1 tablet, By Mouth, Every 12 hours Multivitamin, : See Instructions, TAKE ONE DAILY BY MOUTH Allergies Latex Social History Alcohol Use: Past., 03/05/2022 Use: Never., 08/18/2020 Electronic Cigarette/Vaping Electronic Cigarette Use: Never., 03/05/2022 Employment/School Status: Employed., 12/14/2019 Exercise Self assessment: Good condition. Regular exercise: Yes., 12/14/2019 Home/Environment Living situation: Home/Independent. Lives with: Mother., 12/14/2019 Nutrition/Health Diet: Regular., 12/14/2019 Sexual Sexually involved in last 6 months: Yes., 12/14/2019 Substance Abuse Use: Past. Type: Marijuana., 12/14/2019 Tobacco Use: Never (less than 100 in lifetime)., 08/18/2020 Use: Never (less than 100 in lifetime)., 12/14/2019 Family History Mother: Hypertension Plan No Data Found * Marina Castro MD: PERFORM Event Display: History and Physical Hospital Authored Date: Attending Attestation:??I have seen and evaluated this patient. ??I have discussed the case and itsmanagement with the resident and agree with the findings and plan as documented in the resident???snote. -Marina Castro MD [facility] Progress note * Ligia Del Toro RN: PERFORM, SIGN, VERIFY Event Display: Progress Note Hospital Authored Date: Patient: NANETTE ROSS Age: 22 years Sex: Female : 2000 Associated Diagnoses: None Author: Ligia Del Toro RN Discharge teaching reviewed with pt and fob. All questions answered. Pt aware of follow up appts. .?? Breats and formula feeding well. Bands checked and cut. Security tag removed. Pt discharged home with . * Rekha Stoll RN: SIGN, MODIFY, PERFORM, SIGN, VERIFY Event Display: Progress Note Hospital Authored Date: Patient: NANETTE ROSS Age: 22 years Sex: Female : 2000 Associated Diagnoses: None Author: Rekha Stoll RN Findings Evaluation A&Ox4. VSS. recovery plan of care reviewed with patient. Pt reported episode of feeling light headed in bathroom this morning, pt back to bed with nursing staff on standby assist. Pt reports headache and feeling off . Fluids and oral intake and rest encouraged, Tylenol administered with + effect. Provider notified of light headedness and pt appearing pale. POC completed per reside, CBC drawn, pending results. Pt primarily formula feeding at this time. Good mother/baby bonding observed. Pt reports mild uterine cramping, OB bleeding WNL, no clots observed, no saturation of belen pad noted. Call verde within reach. . * Rekha Stoll RN: PERFORM Event Display: Progress Note Hospital Authored Date: orthostatic vitals WNL, provider notified of CBC results , no further orders, pt can discharge home. * Loraine Soni DO: PERFORM Event Display: Progress Note Hospital Authored Date: [id number] Patient: ??NANETTE ROSS ? Age:??22 Years?Sex:??Female?:??2000?? Physical Exam Vitals & Measurements T:??98.1?F ?? HR:??100(Monitored)?? TX:??75?? RR:??18?? BP:??111/60?? SpO2:??97%?? HT:??152??cm?? WT:??79.2??kg?? BMI:??34.28?? Assessment/Plan Pt is 2 days .??I was paged to??bedside after pt complained of some dizziness. She statesshe??stood and ambulated to the bathroom, then began to feel lightheaded while sitting on the toilet. She is not sure if she had urinated or??defecated prior to feeling lightheaded. Pt reports that symptoms resolved within a few seconds and she had her mother help her ambulate back to the bed. She then napped for a few hours and when she woke up was able to ambulate to the bathroom with nursing at bedside without onset of symptoms. Pt notes that she has not eaten much today, but she has tried to hydrate well with water. She denies any palpitations,??shortness of breath, pleuritic chest pain, nausea or vomiting. ?? On exam, pt appears pale. She is awake, alert, and oriented. Heart is regular and lungs are clear. We will check POC glucose and CBC to evaluate for hypoglycemia vs anemia. Pt is also ordering lunch. OB Summary : 2 . Baby A - Weight: 4.35 kg Baby A - Date, Time of : 10/08/22 19:18:00 Baby A - Gender: Male Baby A - Complications: None EGA at Documented Date, Time: 39W 1D Weight at Delivery Baby A - Delivery Type: Vaginal Delivery Complications: None OB History History?(1,0,0,1)? # 1 ?Baby 1 ?Outcome Date:??07/08/2020?Outcome or Result:??Vaginal ?Gest Age:??37 weeks ? Outcome:??Live ? Sex:??Male?Wt:?3029 g ?Gal Labor:??2 hr 23 min ?Hospital:??[facility] Active Problem List Active Problem List ADHD: (Medical) Asthma: (Medical) Managed by PCP COVID-19 vaccine series completed: (Medical) Eczema: (Medical) Obese class I: (Medical) : (Obstetric) (01/06/22) Home Medications Acetaminophen: 650 mg, By Mouth, Every 4 hours, PRN (Pain , Mild), (1-3), may give 325mg per patient preference and re-dose with 325mg within 4 hours, if needed. ?? Patient should only receive a total of 650mg of Acetaminophen every 4 hours. Albuterol Docusate: 100 mg = 1 capsule, By Mouth, 2 times a day, PRN (for constipation) Docusate: 100 mg = 1 capsule, By Mouth, 2 times a day, PRN (Constipation) Durable Medical Equipment: See Instructions, Check peak flow daily and during wheezing. Normal 380-550. Fluticasone: 88 mcg, Inhalation, 2 times a day Fluticasone: 2 puffs, Inhalation, 2 times a day Ibuprofen: 800 mg = 1 tablet, By Mouth, Every 8 hours, PRN (Pain , Moderate), (4-6), may give 400mgper patient preference and re-dose with 400mg within 8 hours if needed. ?? Patient should only receive a total of 800mg of Ibuprofen every 8 hours. Metronidazole: 500 mg = 1 tablet, By Mouth, Every 12 hours Multivitamin, : See Instructions, TAKE ONE DAILY BY MOUTH Medications Medications (7) Active SCHEDULED: (3) Budesonide 0.5 mg/ 2 mL Inhalation Susp (budesonide 0.5 mg/2 mL inhalation suspension) ??0.5 mg 2 mL, BAND Nebulizer, 2 times a day Lidocaine 1% Inj (20 mL) (Lidocaine 1% Inj) ??20 mL, Subcutaneous Injection, Once Multivitamin Tablet ( Multivitamin Tablet) ??1 tablet, By Mouth, Daily CONTINUOUS: (0) PRN: (4) Acetaminophen 325 mg Tablet (Acetaminophen Tablet) ??650 mg, By Mouth, Every 4 hours Albuterol 90mcg/Inhalation Inhaler HFA (albuterol CFC free 90 mcg/inh inhalation aerosol) ??90 mcg 1 puffs, Inhalation, Every 4 hours Docusate Sodium 100 mg Capsule (Colace sodium 100 mg oral capsule) ??100 mg 1 capsule, By Mouth, 2 times a day Ibuprofen 800 mg Tablet (Ibuprofen Tablet) ??800 mg, By Mouth, Every 8 hours Note * Ligia Del Toro RN: PERFORM Event Display: Discharge/Transfer Note Hospital Authored Date: [id number] Nursing Discharge Note Entered On: 10/10/2022 15:54 EDT Performed On: 10/10/2022 15:54 EDT by Ligia Del Toro RN Nursing Discharge Note 2 Discharge Time : 10/10/2022 15:50 EDT Discharge Level of Care at Discharge : Home/Penitentiary/Foster Care Patient Left Unit Via : Ambulatory Patient Accompanied Off Unit with : Significant other DC Instructions Provided & Signed by Pt : Yes Patient Understands D/C Instructions : Yes Patient Instructions Discharge Signed : Yes Did Pt have Specialty Bed or Wound Vac : No Ligia Del Toro RN - 10/10/2022 15:54 EDT * Jesus Cosme MD: PERFORM Event Display: Discharge/Transfer Note Hospital Authored Date: [id number] Patient: ??NANETTE ROSS ? Age:??22 Years?Sex:??Female?:??2000?? Admit Date Admission Date: 10/08/2022 Discharge Date 10/10/22 OB Reason for Admission OB Reason for Admission Reason for admission[facility] Patient is a 22 year old @ 39+2w gestation presenting in active labor found to be fully dilated. She had an uncomplicated vaginal delivery with 2nd degree laceration ?Patient would like to be discharged today.?Discussed self care, and depression. Patient was counseled on warning signs for calling or returning to care including but not limited to fever of 100.4 orgreater, heavy vaginal bleeding, foul-smelling vaginal discharge, difficulty or burning with urination, nausea and vomiting with inability to tolerate food, pain not controlled by medications, shortness of breath or chest pain, and depression. Counseled to place nothing in the vagina in the next 4-6wks. Patient verbalized understanding. ? Objective/Physical Exam on Day of Discharge Vitals & Measurements T:??97.4?F ?? HR:??100(Monitored)?? TX:??87?? RR:??18?? BP:??105/70?? SpO2:??97%?? HT:??152??cm?? WT:??79.2??kg?? BMI:??34.28?? 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 laceration repair intact Psych: appropriate mood and affect. answering questions appropriately. Ext: non-tender, non-edematous Assessment/Plan/Discharge Diagnosis Assessment:??Pt is a 22 yo G2 now P2 PPD1 after of M at 39+2. Pt is meeting appropriatepostpartum milestones. Pain is well controlled with ibuprofen/Tylenol. Pt desires POPs for PPBC ? Asthma (J45.909):??Albuterol PRN ?? Bacterial vaginosis (N76.0):??diagnosed prior to delivery Will treat with flagyl PO . ?? state (Z39.2):??Continue regular care Ibuprofen/Tylenol for pain control Breast/Bottle feeding: both PPBC: POPs circ: declines Plan for discharge: home td Follow up at [facility] in 6 weeks ? Care: _ Future Appointments Friday 2:00 PM EDT ?? With: Tracie Knight CNM Where: [facility] - Food [employer] [address] [place] [address]- Delivery Summary Delivery Summary Maternal Information ??Labor Information ?Labor Onset, Date/Time: ??10/08/22 17:50:00 ?Baby A ?Labor Onset Methods: ??Spontaneous ??Delivery Information ?Obstetrical Laceration: ??Perineal laceration ?Perineal Laceration: ??Midline, 2nd degree ?Perineal Laceration Repair: ??Vicryl suture ?Anesthesia for Repair: ??Local ?Delivery Complications: ??None ?Blood Loss(ml): ??350 mL ? Baby A ??Delivery Information ?Delivery Type: ??Vaginal ?Date, Time of : ??10/08/22 19:18:00 ? Position: ??Supine ?Foot of bed removed: ??No ?Delayed Cord Clamping: ??Yes ?Placenta Delivery Date/Time: ??10/08/22 19:27:00 ?Placenta Delivery Method: ??Assisted ?Placenta Appearance: ??Normal ?Placenta to Pathology: ??No ??Care Team ?Attending Provider: ??Marina Castro MD ?Delivery Physician: ??Mariama Hyde DO ?arrt technologist #1: ??Analilia Gonzalez RN ?arrt technologist #2: ??Frank MAYBERRY, Kaitlynn ??Labor Information ?ROM Date, Time: ??10/08/22 19:17:00 ? monitoring: ??External monitor ?? Information ? Outcome: ??Live ? Position: ??Right occiput anterior ? Weight: ??4.350 kg ? Score 1 minute: ??9 ? Score 5 minute: ??9 ? Score 10 minute: ??9 ?Transferred To: ?? Care area with Family ?Umbilical Cord Description: ??3 vessel cord ? Complications: ??None ?Gender: ??Male ? Procedures Performed Vaginal delivery ? Discharge Medications ???Acetaminophen (acetaminophen 325 mg oral tablet)???Albuterol (ProAir HFA 90 mcg/inh inhalation aerosol with adapter)???Docusate (Colace sodium 100 mg oral capsule)???Docusate (Colace sodium 100 mgoral capsule)???Durable Medical Equipment (Peak Flow Meter (Adult))???Fluticasone (Flovent HFA 110 mcg/inh inhalation aerosol)???Fluticasone (Flovent HFA 44 mcg/inh inhalation aerosol)???Ibuprofen (ibuprofen 800 mg oral tablet)???Metronidazole (metroNIDAZOLE 500 mg oral tablet)???Multivitamin, ( Multivitamins with Folic Acid 1 mg oral capsule) Stop taking these medications ???Fluconazole (fluconazole 150 mg oral tablet) Immunizations during Hospitalization Vaccine Date StatusMeasles/Mumps/Rubella Virus Vaccine 10/09/2022 Given tetanus/diphtheria/pertussis, acel(Tdap) 07/25/2022 Given influenza virus vaccine, inactivated 04/03/2022 Given tetanus/diphtheria/pertussis, acel(Tdap) 06/23/2020 Given influenza virus vaccine, inactivated 04/14/2020 Given Contraception Progesterone only contraceptive pills ? Feeding Method No Results Patient Instructions Discharge: home, Call your the office with any concerns including:?? Heavy vaginal bleeding?? Fever of 100.4 or greater Foul-smelling vaginal discharge Difficulty or burning with urination?? Nausea and vomiting with inability to tolerate food,?? Pain not controlled by your prescribed medications Shortness of breath or chest pain. Swelling of the extremities. ?? General Instructions: - Avoid lifting anything 15 lbs or greater until cleared by doctor. - Stairs are OK but avoid multiple trips/ skipping steps and go slowly. - Walk as often as you are able. - Do not put anything in the vagina. No intercourse, tampons, or douching - Continue your stool softeners (examples: colace/docusate, senna, miralax) - Shower as usual. Avoid tubs/ soaking/ pools. * Rylie Cortes CNM: PERFORM Event Display: Discharge/Transfer Note Hospital Authored Date: [id number] This note was completed with the aid of a resident, I personally performed all components of the visit including the history of present illness, examination and medical decision making. The note has been verified for accuracy and re- documented as needed.?? * Dodie MAYBERRY, Rekha: La Reese RN: PERFORM Event Display: Patient Education/Instruction Authored Date: [id number] Inpatient Adult Discharge Instructions [address] [address] Name: NANETTE ROSS : 2000 Visit: 10/08/2022 19:07:00 Current Date: 10/10/2022 08:15 Account: [id number] Inpatient Adult Discharge Instructions We would like [...] and their families. Surveys are administered by [employer] ?? If further treatment with your primary care physician or another doctor is recommended, it is important for you to keep the appointment. Call your primary care physician or return to the Emergency Department immediately if your condition worsens, fails to improve, or new symptoms develop. If you need to find a doctor, you can call [facility] for a referral at [phone] or toll free at [phone] or log in to [email or web address].. ?? You can view and manage your care through the patient portal or by using a health care [facility] of your choosing. [employer] is a website that allows you to securely view your medical information including your hospital discharge summary, office visit summaries, medications and follow-up visits. You can also request appointments, renew medications, and request access to your medical information using a health care [facility] of your choosing, or just ask a question. You can enroll at [email or web address] or register during your next office visit. You have been discharged from [facility], Patient Care Unit: [facility]. If you have any questions regarding these instructions after you leave, please call us and we will be happy to assist you. [facility] Your Care Team Attending Physician Gloria GRIFFIN, Marina Hay Discharging Providers Carmelina GRIFFIN, Jesus Reason for Your Visit Labor Your Diagnosis Asthma Bacterial vaginosis Constipation in Normal labor state Tests Performed Below is a partial list of the tests performed during your hospitalization. You may have had other tests and procedures not included in this list. Please discuss all test results with your provider. Primary Care Provider Marbin GRIFFIN, Johanna Gomes Advance Directive . Discharge Vitals Temperature: 97.4 DegF Height: 152 cm Pulse Rate: 87 bpm Weight: 79.2 kg Respiratory Rate: 18 br/min Body Mass Index:??34.28 kg/m2??Critical Systolic Blood Pressure: 99 mm Hg Body surface area: 1.83 Diastolic Blood Pressure: 66 mm Hg ?? Oxygen Saturation: 97 % ?? Studies Pending All tests and labs ordered during this hospital stay have been completed unless listed below. Please discuss all pending results with your provider listed above in these instructions. ?? COVID-19 (2019 Novel Coronavirus) PCR What to do next Instructions from your Care Team Discharge Care Instructions for the New Mom?? Please take a few moments to read through these helpful instructions before you leave the hospital.??Your nurse will be glad to answer any questions you may have. ??You can also find this and more information throughout the purple??Becoming a Family??booklet,??[facility]???s New Beginnings Guide??and the?? Consultation Services Guide??given to you after the of your baby. ??You may also phone our nurses stations if you have further questions. ??[facility]: ??First Floor ([phone]), Second Floor ([phone]). ?? Please call your provider if you have any questions or concerns ??before your next appointment. For ongoing support??please?Like?us on our Facebook page?[facility] New Beginnings?and sign up for our email newsletter at??[email or web address]. ??News and information will be sent to you??until your baby???s third birthday. Instructions for the New Mother Activity:?? For the next 2 weeks at home?no heavy lifting, avoid unnecessary stair climbing, and no driving (especially if you are taking medicine that may make you sleepy or feel that you are sleep deprived). ?? For the next 4-6 weeks - no tampons, no douches, no sexual intercourse. Use your belen bottle to rinse your perineum until your vaginal flow stops. ??If you have stitches in your bottom, they generally dissolve within 7-10 days. ??Apply Tucks/witch rolan pads until your soreness subsides. ??Use your bathroom at home every 3 to 4 hours, rinse, and change your pads. Warm showers feel great on achy muscles, sore backs and sore bottoms. Exercise: Walking is the best form of exercise. ??Wait until your follow up appointment with your provider in4-6 weeks before engaging in more strenuous activity. Diet: Drink plenty of fluids to avoid constipation and to help support your recovery. Eat plenty of iron rich foods such as red meat, iron fortified cereals like Total and Cream of Wheat, raisins, prunes, greens and spinach. ??These will help to build your blood count back up as all women lose some blood after delivery. ??Also add foods rich in Vitamin C such as strawberries, oranges, papayas, kale and verde peppers. Continue to take your vitamins if you are . ??If you are not follow the instructions of your provider. ??If you were prescribed iron supplements such as ferrous sulfate, it is important to continue these until your doctor or manager reliability tells you to stop. Breast Care for Nursing Mothers: Wear a comfortable fitting, supportive nursing bra. ??An underwire bra is not recommended. Express drops of breast milk and rub over your nipples and areola (brown area) before and after each feeding to protect and heal sensitive skin and then air dry your nipples. ??If you are experiencing any soreness, you may purchase nipple cream such as TenderCare or Lansinoh. ??Use it in the following manner: ??finish your feeding or pumping session, self-express colostrum onto your nipple and air dry, apply the nipple cream to the nipple and areola. ??Use only small amounts for best results. If you are having difficulty getting the baby to latch onto the breast due to swelling of the areola, try applying pressure with your fingers for a couple of minutes above and below your nipple and walk your fingers outward softening the area and pushing the swelling away. ??This technique is knownas reverse pressure softening. ??For demonstrations of this and other techniques such as the [place] Hand Expression technique, please refer to the resources section of the Consultation Services Guide that you received from services.?? When your milk first comes in, usually within 3 to 5 days after delivery, you may experience engorgement. ??Your breasts may become swollen and very tender. ??Cold compresses work great to help with discomfort and reduce swelling. It will get better in a couple of days. ??Continue to nurse your baby frequently. ?? Call [facility]???s Consultation Service at [phone], press 1 to schedule an outpatient appointment or press 3??and a funeral pre need consultant will return your call that day or the next if you call after 3pm. Breast Care for Bottle Feeding Mothers: Engorgement may occur within the first week after delivery. ??Your breasts may become hard and verytender. ??A cool compress of cleaned raw green cabbage leaves applied to the breast and changed as leaves wilt has been proven helpful for many women. ??Ice packs or frozen bags of peas also work nicely to ease the discomfort. ??The soreness will only last a couple of days. Keep your back turned to the water while showering to decrease breast stimulation. Wear a snug fitting bra such as a sports bra. ? Pain Management: Cramping after is common and increases in strength with each baby you have. ??If you experience painful cramps, and have no allergies to acetaminophen (Tylenol) or ibuprofen (Motrin), you may continue to take these medications as you did in the hospital. ??Ibuprofen is also helpful with back aches following epidurals, perineal pain following a vaginal delivery, and moderate incisional pain after a section or a tubal ligation. ?? If you experience gas distention, especially after surgery, you may take an over the counter medication called simethicone. ??Take these chewable tablets 4 times a day as needed and directed on the package. ??Keep moving. ??Walking or rocking in a chair, will help to move the gas along. ??Radha tea made with heated radha leelee (instead of water) and a tea bag, stirred to dissolve carbonation (bubbles) is a helpful drink to soothe a gassy stomach. Warning Signs of a Problem to Notify Your Doctor or Decay Control Operator of: Heavy vaginal bleeding?which is??soaking a pad every hour??with bright red blood. Passing blood clots the size of an egg or larger. An incision that is not healing. A temperature greater than or equal to 100.4 especially if accompanied by any of the following symptoms?painful, frequent urination; extreme back or flank pain; lower belly pain with a foul smell to your vaginal flow; a red hard hot area on your breast. ?? Severe headache that does not go away after taking acetaminophen or ibuprofen. ?? A headache that changes your vision, including seeing spots or blurring. Right sided upper abdominal pain along the rib cage area. Pain in your legs that is warm and tender to the touch. depression signs may include?loss of interest in your baby, weepiness, difficulty focusing, weight loss with no appetite, exhaustion, feeling overwhelmed or anxious, feelings??of despair, or thoughts of harming yourself or your baby. ??These symptoms are important and should be discussed with your doctor or manager reliability. depression may develop over a period of time and needs prompt medical attention. ??Do not suffer in silence. ??In both the??Becoming a Family??booklet and the??[facility]??New Beginnings Guide??there is a screening tool used to identify women at risk, called the [place] Scale which you have taken in the office prior to delivery and again during your ho spital stay. ??Three to four weeks after your delivery, and before your check with your provider, take this test and share your results with your provider. ??Be sure to mention any score of 10 or more. ?? Many women, and even some partners, may experience the?baby blues?? . ??This is a state of feeling overwhelmed and weepy. ??Discomfort from childbirth, hormonal changes, exhaustion, changes to your body and lifestyle are a few of the things that contribute to the highs and lows new parents go through. ??Don???t be afraid to ask your partner or family and friends for some help at home so you can get some rest and a few minutes to yourself. ??The blues will quickly pass. Personal Safety: Every person has the right to feel safe at home and live free from physical or emotional harm. ??Ifyou have suffered mental or physical abuse at home, you are not alone. ??There is help. ??Please call [employer] or the [employer] Program at [phone]. Scheduled Follow-Up Appointments Friday 2:00 PM EDT ?? With: Tracie Knight CNM Where: [facility] - Food Production Machine Operator [address] [place] [address]- Discharge Medications NANETTE ROSS :2000 Visit Date:10/08/2022 Medications: Please continue your medications until treatment is completed or stopped by your provider. Medications not listed below should be discontinued. Discuss any questions related to medications with your provider. What How Much When Why Instructions Next Dose New Acetaminophen (acetaminophen 325 mg oral tablet) 650 Milligram Oral Every 4 hours as needed for Pain , Mild Duration: 7 Days (1-3), may give 325mg per patient preference and re-dose with 325mg within 4 hours, if needed. ?? Patient should only receive a total of 650mg of Acetaminophen every 4 hours. ?? Pickup at As Needed New Ibuprofen (ibuprofen 800 mg oral tablet) 1 tab(s) Oral Every 8 hours as needed for Pain , Moderate Duration: 7 Days (4-6), may give 400mg per patient preference and re-dose with 400mg within 8 hours if needed. ?? Patient should only receive a total of 800mg of Ibuprofen every 8 hours. ?? Pickup at As Needed Changed Docusate (Colace sodium 100 mg oral capsule) 1 capsule Oral Twice a day as needed for for constipation Constipation in As Needed Unchanged Albuterol (ProAir HFA 90 mcg/ inh inhalation aerosol with adapter) As Needed Unchanged Durable Medical Equipment (Peak Flow Meter (Adult)) See instructions Check peak flow daily and during wheezing. Normal 380-550. ?? As directed Unchanged Fluticasone (Flovent HFA 110 mcg/ inh inhalation aerosol) 2 puff(s) Inhalation Twice a day As directed Unchanged Metronidazole (metroNIDAZOLE 500 mg oral tablet) 1 tab(s) Oral Every 12 hours Duration: 7 Days Printed Prescription Unchanged Multivitamin, ( Multivitamins with Folic Acid 1 mg oral capsule) See instructions TAKE ONE DAILY BY MOUTH ? What How Much When Comments Stop Taking Fluconazole (fluconazole 150 mg oral tablet) 1 tab(s) Oral Once epeat dose if still having symptoms in 72 hours ?? Test Results Below is a partial list of the most recent Laboratory test results done prior to this discharge. You may have had other tests and procedures not included in this list. Please discuss all test resultswith your provider. Immunizations This Visit Given Vaccine DateMeasles/Mumps/Rubella Virus Vaccine 10/09/2022 Allergies (NKA means No Known Allergies) Latex Problems Active Problems??(6) ADHD?? Asthma?? COVID-19 vaccine series completed?? Eczema?? Obese class I? Education Materials Below is the list of Educational Leaflet Providered with your Discharge Instructions. Valuables and Belongings I fully understand and agree that [facility] accepts no responsibility for all my personal [...] encouraged to send valuables and belongings home. ?? Review of Valuable and Belonging List: With patient Date for Pt to Sign Valuables/Belongings: 10/08/22 20:25:00 ?? Other Discharge Information ? Pulmonary Rehab Status?? [...] are strongly encouraged to quit. Please call [facility] [employer] [facility] at [phone] or [phone] ([phone]) or log in to [email or web address] for referrals to smoking cessation programs. ?? 191 Suicide & Crisis Lifeline is available 06/01 if you or someone you know needs to find a reason to keep living. By calling 376 you'll be connected to a skilled, trained counselor at a crisis center in your area. INPATIENT DISCHARGE INSTRUCTIONS SIGNATURE PAGE NANETTE ROSS Location:[facility] Registration Date and Time:10/08/2022 19:07 EDT Primary Care Physician: Johanna Zazueta MD, I NANETTE ROSS, have received the above patient education materials/instructions and have verbalized understanding. If ambulance or transport services are being used I further acknowledge beinggiven a choice of service. ?? If you need to contact me, please call me at this number: . Patient/Water Treatment Plant Supervisor Name: Patient/Water Treatment Plant Supervisor Signature: Relationship to Patient: Witness Name/Signature: Date: * Yaneth Ramesh: PERFORM Event Display: Care Team Progress Note Authored Date: [id number] Patient: ??NANETTE ROSS ? Age:??22 Years?Sex:??Female?:??2000?? Subjective cart rounds day??1 assessment for assistance Patient??little previous experience Feeding sheet?? adequately filled out- one good feed documented- all the rest F feeds Patient??has obtained personal pump Assessment/Plan Nanette reports that the baby is too big and not satisfied at the breast. Baby has been getting Formula feeding in the amounts of 7-12ml per feed. Nanette also states that the cramping is impacting her desire to feed. assisted with feeding in FB- encouraged to use this position to take pressureof her abdomen. Baby easily latched and fed for 15 minutes on left side- nipple round post feed. Nanette was very happy with her comfort level throughout feed. she independently switched baby to her right breast- he latched easily and fed well. Baby's hands were loose and arms loose- education that is indicator that baby was satisfied. ?? Basic education discussed with mother/family including:? Positioning for optimal feeding Asymmetric latch technique Frequent breast stimulation for initiation and maintenance of milk supply Breast compressions during a feeding to offer stimulation to a sleepy baby Engorgement prevention and management (page 12 guide) How to know your baby is getting enough (page 14 guide) Trouble shooting guide (pg 26-27 guide) Reputable websites (pg 28 guide) support Zoom group Wednesdays at 1pm Hand expression When to use a breast pump Consultation reference guide given to mother with contact information for services and ongoing support as needed.?? OB Summary : 2 . Baby A - Weight: 4.35 kg Baby A - Date, Time of : 10/08/22 19:18:00 Baby A - Gender: Male Baby A - Complications: None EGA at Documented Date, Time: 39W 1D Weight at Delivery Baby A - Delivery Type: Vaginal Delivery Complications: None OB History History?(1,0,0,1)? # 1 ?Baby 1 ?Outcome Date:??07/08/2020?Outcome or Result:??Vaginal ?Gest Age:??37 weeks ? Outcome:??Live ? Sex:??Male?Wt:?3029 g ?Gal Labor:??2 hr 23 min ?Hospital:[facility] Active Problem List Active Problem List ADHD: (Medical) Asthma: (Medical) Managed by PCP COVID-19 vaccine series completed: (Medical) Eczema: (Medical) Obese class I: (Medical) : (Obstetric) (01/06/22) Home Medications Albuterol Docusate: 100 mg = 1 capsule, By Mouth, 2 times a day, PRN (for constipation) Durable Medical Equipment: See Instructions, Check peak flow daily and during wheezing. Normal 380-550. Fluticasone: 88 mcg, Inhalation, 2 times a day Fluticasone: 2 puffs, Inhalation, 2 times a day Multivitamin, : See Instructions, TAKE ONE DAILY BY MOUTH Medications Medications (8) Active SCHEDULED: (4) Budesonide 0.5 mg/ 2 mL Inhalation Susp (budesonide 0.5 mg/2 mL inhalation suspension) ??0.5 mg 2 mL, BAND Nebulizer, 2 times a day Lidocaine 1% Inj (20 mL) (Lidocaine 1% Inj) ??20 mL, Subcutaneous Injection, Once Measles / Mumps / Rubella Vaccine (Measles/Mumps/Rubella Virus Vaccine Inj) ??0.5 mL, Subcutaneous Injection, Once Multivitamin Tablet ( Multivitamin Tablet) ??1 tablet, By Mouth, Daily CONTINUOUS: (0) PRN: (4) Acetaminophen 325 mg Tablet (Acetaminophen Tablet) ??650 mg, By Mouth, Every 4 hours Albuterol 90mcg/Inhalation Inhaler HFA (albuterol CFC free 90 mcg/inh inhalation aerosol) ??90 mcg 1 puffs, Inhalation, Every 4 hours Docusate Sodium 100 mg Capsule (Colace sodium 100 mg oral capsule) ??100 mg 1 capsule, By Mouth, 2 times a day Ibuprofen 800 mg Tablet (Ibuprofen Tablet) ??800 mg, By Mouth, Every 8 hours Patient Care team information Care Team Personnel Name: Johanna Zazueta MD Position: [facility] Outreach Member Role: PCP Address: Address: [address] [place] [id number]- Name: Radha Parham RN Position: [facility] OB RN Member Role: OB RN Care Team Related Persons Name: DARCY PIKE Address: [address] Address: home [address] [place] [id number] [place] Name: POLLY MEYER Address: home [address] [place] [address] Name: NANETTE ROSS Address: [id number] Address: [place] [address] [place] [address] [place]
--- OUTSIDE RECORDS SUMMARY | 2022-12-29 16:27 | XMS_ITS | Continuity of Care Document ---
Author Name Unknown Organization [facility] ter Address [address] [place] [address]- Care Team Providers Care Cone Examiner Name Role Phone Johanna Zazueta MD Primary Care Physician [place] [facility] [place]07/22 - 10/07/[address] [address] Discharge Disposition: A-D/C Home Attending Physician: Andrea Sanchez MD Admitting Physician: Andrea Sanchez MD Referring Physician: Andrea Sanchez MD Allergies, Adverse Reactions, [...] 07/17/22 11:32:00 EST, Route to Pharmacy Electronically, [facility]/pharmacy #[id number], Partial fill upon patient request if the [...] EDT, Heig... Start Date: 03/28/22 Status: Ordered fluconazole 150 mg oral tablet 1 tablet = 150 mg, By Mouth, Once, epeat dose if still having symptoms in 72 hours, # 2 tablet, 0 Refills, Soft Stop, 10/14/22 16:49:00 EDT, Tablet, [id number], Partial fill upon patient request if the prescription is for a schedule II opioid... Start Date: 10/14/22 Status: Ordered metroNIDAZOLE 500 mg oral tablet 1 tablet = 500 mg, By Mouth, Every 12 hours, for 7 days, # 14 tablet, 0 Refills, Acute 10/14/22 16:49:00 EDT, 10/07/22 16:49:00 EDT, Tablet, [id number], Partial fill upon patient request if the prescription is for a schedule II opioid drug., 1... Start Date: 10/07/22 Stop Date: 10/14/22 Status: Ordered Peak Flow Meter (Adult) See [...] recent to oldest [Reference Range]: 1 Weight 79.1 kg (10/07/22 3:41 PM) Oxygen Saturation [94-100 %] 98 % (10/07/22 3:41 PM) Blood Pressure [90-138/55-84 mm Hg] 115/ 75mm Hg (10/07/22 3:47 PM) Respiratory Rate [16-30 br/min] 17 br/mi n (10/07/22 3:41 PM) Temperature [96.8-100.4 DegF] 98.0 DegF (10/07/22 3:41 PM) Mode of Delivery (Oxygen) Room air (10/07/22 3:41 PM) Blood pressure sites Arm, right (10/07/22 3:47 PM) Temperature Route Oral (10/07/22 3:41 PM) Weight Obtained Via Standing scale (10/07/22 3:41 PM) Social History Social History Type Response Smoking Status Never (less than 100 in lifetime) entered on: 08/18/20 Sex Note * Blanca Torres: PERFORM Event Display: Discharge/Transfer Note Hospital Authored Date: [id number] Nursing Discharge Note Entered On: 2022 17:14 EDT Performed On: 2022 17:13 EDT by Blanca Torres Nursing Discharge Note 2 Discharge Time : 2022 17:13 EDT Discharge Level of Care at Discharge : Home/Chcf/Foster Care Patient Left Unit Via : Ambulatory Patient Accompanied Off Unit with : Responsible adult DC Instructions Provided & Signed by Pt : Yes Patient Understands D/C Instructions : Yes Patient Instructions Discharge Signed : Yes Did Pt have Specialty Bed or Wound Vac : No Blanca Torres - 2022 17:13 EDT * Blanca Torres: PERFORM Event Display: Patient Education/Instruction Authored Date: [id number] Inpatient Adult Discharge Instructions [address] [address] Name: NANETTE ROSS : 2000 Visit: 2022 15:15:00 Current Date: 2022 17:01 Account: [id number] Inpatient Adult Discharge Instructions We would like [...] and their families. Surveys are administered by [employer]. ?? If further treatment with your primary care physician or another doctor is recommended, it is important for you to keep the appointment. Call your primary care physician or return to the Emergency Department immediately if your condition worsens, fails to improve, or new symptoms develop. If you need to find a doctor, you can call [facility] for a referral at [phone] or toll free at [phone] ([phone]) or log in to [email or web address].. ?? You can view and manage your care through the patient portal or by using a health care north of your choosing. [employer] is a website that allows you to securely view your medical information including your hospital discharge summary, office visit summaries, medications and follow-up visits. You can also request appointments, renew medications, and request access to your medical information using a health care north of your choosing, or just ask a question. You can enroll at [email or web address] or register during your next office visit. You have been discharged from [facility], Patient Care Unit: WETU1. If you have any questions regarding these instructions after you leave, please call us and we will be happy to assist you. [facility] Your Care Team Attending Physician Andrea Sanchez MD Tests Performed Below is a partial list of the tests performed during your hospitalization. You may have had other tests and procedures not included in this list. Please discuss all test results with your provider. Primary Care Provider Marbin GRIFFIN, Johanna Gomes Advance Directive . Discharge Vitals Temperature: 98 DegF Weight: 39.1 kg Respiratory Rate: 17 br/min ?? Systolic Blood Pressure: 115 mm Hg ?? Diastolic Blood Pressure: 75 mm Hg ?? Oxygen Saturation: 98 % ?? Studies Pending All tests and labs ordered during this hospital stay have been completed unless listed below. Please discuss all pending results with your provider listed above in these instructions. ?? No incomplete studies found What to do next Instructions From Your Doctor Discharge Orders Scheduled Follow-Up Appointments Friday 2:00 PM EDT ?? With: Tracie Knight CNM Where: [facility] [address] [place] [address]- Friday 1:40 PM EDT ?? With: Tracie Knight CNM Where: [facility] [address] [place] [address]- You Need to Schedule the Following Appointments Follow Up with??[facility] [phone] When?? Why: Keep scheduled appointments. Call office with questions or concerns. 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 Medications not listed below should be discontinued. Discuss any questions related to medications with your provider. What How Much When Why Instructions Next Dose New Fluconazole (fluconazole 150 mg oral tablet) 1 tab(s) Oral Once epeat dose if still having symptoms in 72 hours ?? Pickup at [facility]/pharmacy #[id number] New Metronidazole (metroNIDAZOLE 500 mg oral tablet) 1 tab(s) Oral Every 12 hours Duration: 7 Days Pickup at [facility]/pharmacy #[id number] Unchanged Albuterol (ProAir HFA 90 mcg/ inh [...] instructions TAKE ONE DAILY BY MOUTH ?? Pharmacy Information [facility]/pharmacy #[id number]: [address] [place], [place] [phone] Test Results Below is a partial list [...] Educational Leaflet Providered with your Discharge Instructions. Bacterial Vaginosis?? Recognizing Labor?? Kick Counts?? Valuables and Belongings I fully understand and agree that [facility] accepts no responsibility for all my personal [...] Status?? Pulmonary Rehab Discharge Status?? Respiratory Rate: 17 br/min ? Common Emergency Awareness Tips IS [...] strongly encouraged to quit. Please call [facility] [facility] [place] Link at [phone] or [phone] Digital ([phone]) or log in to [email or web address] for referrals to smoking cessation programs. ?? 030 Suicide & Crisis Lifeline is available 06/01 if you or someone you know needs to find a reason to keep living. By calling 475 you'll be connected to a skilled, trained counselor at a crisis center in your area. INPATIENT DISCHARGE INSTRUCTIONS SIGNATURE PAGE CODY NANETTE Location:[facility] Registration Date and Time:2022 15:15 EDT Primary Care Physician: Marbin GRIFFIN, Johanna Gomes, I NANETTE ROSS, have received the above patient education materials/instructions and have verbalized understanding. If ambulance or transport services are being used I further acknowledge beinggiven a choice of service. ?? If you need to contact me, please call me at this number: . Patient/Media Marketing Coordinator Name: Patient/Media Marketing Coordinator Signature: Relationship to Patient: Witness Name/Signature: Date: * Blanca Torres: PERFORM Event Display: Patient Education Leaflets Authored Date: [id number] Bacterial Vaginosis ?? [id number] Bacterial Vaginosis You have a vaginal infection called bacterial vaginosis (BV). Both good and bad bacteria are present in a healthy vagina. BV occurs when these bacteria get out of balance. The number of bad bacteria increase. And the number of good bacteria decrease. BV is linked with sexual activity, but it's not a sexually transmitted infection (STI). BV may or may not cause symptoms. If symptoms do occur, they can include: ??? Thin, rosario, milky-white, or sometimes green discharge ??? Unpleasant odor or ???fishy?? smell ??? Itching, burning, or pain in or around the vagina It's not known what causes BV, but certain factors can make the problem more likely. These can include: ??? Douching ??? Spermicides ??? Use of antibiotics ??? Change in hormone levels with , , or menopause ??? Having sex with a new partner ??? Having sex with more than one partner BV will sometimes go away on its own. But treatment is often advised. This is because untreated BV can raise the risk of more serious health problems, such as: ??? Pelvic inflammatory disease (PID) ??? delivery (giving to a baby early if you???re ) ??? HIV and some other sexually transmitted infections (STIs) ??? Infection after surgery on the reproductive organs Home care General care ??? BV is most often treated with medicines called antibiotics. These may be given as pills or as avaginal cream.??If antibiotics are prescribed, be sure to use them exactly as directed. And complete all of the medicine, even if your symptoms go away. ??? Don't douche or have sex during treatment.??? If you have sex with a female partner, ask your healthcare provider if she should also be treated. Prevention ??? Don't douche. ??? Don't have sex. If you do have sex, take steps to lower your risk:o Use condoms when having sex. o Limit the number of sex partners you have. ?? Follow-up care Follow up with your healthcare provider, or as advised. ?? When to get medical advice Call your healthcare provider right away if any of the following occur: ??? You have a fever of??100.4??F (38??C)??or higher, or as directed by your healthcare provider. ??? Your symptoms get worse, or they don???t go away within a few days of starting treatment. ??? You have new pain in the lower belly??or pelvic region. ??? You have side effects that bother you or a reaction to the pills or cream you???re prescribed. ??? You or any of your sex partners have new symptoms, such as a rash, jointpain, or sores. ?? Last Reviewed Date: 2022 ?? 6707-4597 [employer]. All rights reserved. This information is not intended as a substitute for professional medical care. Always follow your healthcare professional's instructions. ?? * Blanca Torres: PERFORM Event Display: Patient Education Leaflets Authored Date: [id number] Recognizing Labor ?? [address] Recognizing Labor The beginning of labor is [...] contraction. ?? Last Reviewed Date: 2022 ?? 2930-8902 [employer]. All rights reserved. This information is not intended as a substitute for professional medical care. Always follow your healthcare professional's instructions. ?? * Blanca Torres: PERFORM Event Display: Patient Education Leaflets Authored Date: [id number] Kick Counts ?? [address] Kick Counts It???s normal to worry about [...] day. ?? Last Reviewed Date: 2022 ?? 4619-3219 [employer]. All rights reserved. This information is not intended as a substitute for professional medical care. Always follow your healthcare professional's instructions. ?? Patient Care team information Care Team Personnel Name: Marbin GRIFFIN, Johanna Gomes Position: S Outreach Member Role: PCP Address: Address: [address] [place] [address]- Care Team Related Persons Name: DARCY PIKE Address: [address] Address: [address] [address] [place] Name: POLLY MEYER Address: [address] [address]
--- OUTSIDE RECORDS SUMMARY | 2022-12-29 16:27 | XMS_ITS | Continuity of Care Document ---
Author Name Unknown Organization [facility] Address [address] [place] [address]- Care Team Providers Care Geothermal Powerplant Mechanic Name Role Phone Marbin GRIFFIN, Johanan Gomes [id number] - 11/02/[address] [address] Attending Physician: Not on Staff, Attending MD [...] 3 Refills, Maintenance, 07/10/20 6:28:00 EST, Tablet, [facility]/pharmacy #[id number], Partial fill upon patient request if the prescription is for a schedule II opioid drug., 153.05, cm, 07/10/20 3:41:00 EST, Heig... Start Date: 07/10/20 Status: Ordered Colace sodium 100 mg oral capsule 100 mg, 1, capsule, By Mouth, 2 times a day, PRN, # 20 capsule, Refills 2, Tot. Refills 2, Maintenance, for constipation, 08/18/20 9:18:00 EST, Route to Pharmacy Electronically, [facility]/pharmacy #[id number], Partial fill upon patient request if the prescription... Start Date: 08/18/20 Status: Ordered Flovent HFA 110 mcg/inh inhalation aerosol 2 puffs, Inhalation, 2 times a day, # 12 Gm, 3 Refills, Maintenance, 04/14/20 14:38:00 EDT, Aerosol, [facility]/pharmacy #[id number], 153.05, cm, 04/14/20 13:55:00 EDT, Height Start Date: 04/14/20 Status: Ordered Multivitamins with Folic Acid 1 mg oral tablet 1 tablet, By Mouth, Daily, # 90 tablet, 3 Refills, Maintenance, 02/09/20 9:15:00 EDT, Tablet, [facility]/pharmacy #[id number], 1 tablet By Mouth Daily, 153.05, cm, 01/20/20 9:40:00 EDT, Height Start Date: 02/09/20 Status: Ordered Singulair 5 mg oral tablet, chewable 5 mg, 1, tablet, Chew, Daily in PM, # 90 tablet, Refills 3, Tot. 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
--- OUTSIDE RECORDS SUMMARY | 2022-12-29 16:27 | XMS_ITS | Continuity of Care Document ---
Author Name Unknown Organization [facility] Address [address] [place] [address]- Care Team Providers Care Pmo Project Manager Name Role Phone Marbin GRIFFIN, Johanna Gomes Primary Care Physician Encounter [facility] [place] Date(s): 06/23/20 - 08/20/[address] [address]- Attending Physician: Tracie Knight CNM Admitting Physician: [...] 3 Refills, Maintenance, 07/10/20 6:28:00 EST, Tablet, [facility]/pharmacy #[id number], Partial fill upon patient request if the prescription is for a schedule II opioid drug., 153.05, cm, 07/10/20 3:41:00 EST, Heig... Start Date: 07/10/20 Status: Ordered Colace sodium 100 mg oral capsule 100 mg, 1, capsule, By Mouth, 2 times a day, PRN, # 20 capsule, Refills 2, Tot. Refills 2, Maintenance, for constipation, 08/18/20 9:18:00 EST, Route to Pharmacy Electronically, [facility]/pharmacy #[id number], Partial fill upon patient request if the prescription... Start Date: 08/18/20 Status: Ordered Flovent HFA 110 mcg/inh inhalation aerosol 2 puffs, Inhalation, 2 times a day, # 12 Gm, 3 Refills, Maintenance, 04/14/20 14:38:00 EDT, Aerosol, [facility]/pharmacy #[id number], 153.05, cm, 04/14/20 13:55:00 EDT, Height Start Date: 04/14/20 Status: Ordered Multivitamins with Folic Acid 1 mg oral tablet 1 tablet, By Mouth, Daily, # 90 tablet, 3 Refills, Maintenance, 02/09/20 9:15:00 EDT, Tablet, [facility]/pharmacy #[id number], 1 tablet By Mouth Daily, 153.05, cm, 01/20/20 9:40:00 EDT, Height Start Date: 02/09/20 Status: Ordered Singulair 5 mg oral tablet, chewable 5 mg, 1, tablet, Chew, Daily in PM, # 90 tablet, Refills 3, Tot. 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 [place]:9 Social History Social History Type Response Smoking Status Never (less than 100 in lifetime) entered on: 08/18/20 Sex
--- OUTSIDE RECORDS SUMMARY | 2022-12-29 16:27 | XMS_ITS | Continuity of Care Document ---
Author Name Unknown Organization [facility] Address [address] [place] [address]- Care Team Providers Care General Hardware Salesperson Name Role Phone Marbin GRIFFIN, Johanna Gomes Primary Care Physician Encounter [facility] [place] Date(s): 08/26/22 - 11/15/[address] [address]- Attending Physician: Tracie Knight CNM Admitting Physician: [...] 07/17/22 11:32:00 EST, Route to Pharmacy Electronically, [facility]/pharmacy #[id number], Partial fill upon patient request if the prescriptio... Start Date: 07/17/22 Status: Ordered Colace sodium 100 mg oral capsule 100 mg, 1, capsule, By Mouth, 2 times a day, PRN, # 100 capsule, Refills 0, Tot. Refills 0, Maintenance, Constipation, 10/09/22 23:11:00 EDT, Route to Pharmacy Electronically, [facility]/pharmacy #[id number], Partial fill upon [...] 1 Refills, Maintenance, 03/28/22 20:20:00 EDT, Inhaler, [facility]/pharmacy #[id number], Partial fill upon [...] 100 capsule, 2 Refills, Maintenance, 03/05/22 15:39:00EDT, [facility]/pharmacy #[id number], Partial fill upon [...] Team Personnel Name: Johanna Zazueta MD Position: [facility] Outreach Member Role: PCP Address: Address: [address] [place] [address]- Care Team Related Persons Name: DARCY PIKE Address: [address] Address: [address] [address] [place] Name: ANIBAL PIKE Address: [address] Address: [address] [address] [place] Name: POLLY MEYER Address: [address] [address]
--- OUTSIDE RECORDS SUMMARY | 2022-12-29 16:27 | XMS_ITS | Continuity of Care Document ---
Author Name Unknown Organization [facility] Address [address] [place] [address]- Care Team Providers Care Stadium Manager Name Role Phone Marbin GRIFFIN, Johanna Gomes [id number] Date(s): 12/01/20 - 01/03/[address] [address] Attending Physician: Not on Staff, Attending [...] 3 Refills, Maintenance, 07/10/20 6:28:00 EST, Tablet, [facility]/pharmacy #[id number], Partial fill upon patient [...] 08/18/20 9:18:00 EST, Route to Pharmacy Electronically, [facility]/pharmacy #[id number], Partial fill upon patient [...]
--- OUTSIDE RECORDS SUMMARY | 2022-12-29 16:27 | XMS_ITS | Continuity of Care Document ---
Author Name Unknown Organization [facility] ter Address [address] [place] [address]- Care Team Providers Care Seeing Eye Dog Trainer Name Role Phone Johanna Zazueta MD Primary Care Physician Encounter [facility] Date(s): 04/28/22 - 04/28/[address] [address]- Discharge Disposition: A-D/C Home Attending Physician: Carlton Ahumada DO Admitting Physician: Carlton Ahumada DO Referring Physician: Not on Staff, Referring MD Allergies, Adverse Reactions, Alerts Substance Reaction [...] Refills, Maintenance, 03/28/22 20:20:00 EDT, [facility]haler, [id number], Partial fill upon patient request if the [...] Dry Weight Start Date: 03/28/22 Status: Ordered predniSONE 20 mg oral tablet 2 tablet = 40 mg, By Mouth, Daily, for 4 days, # 8 tablet, 0 Refills, Acute 05/02/22 5:48:00 EST, 04/28/22 5:48:00 EST, Tablet, [facility]/pharmacy #[id number], Partial fill upon patient request if the prescription is for a schedule II opioid drug., 153.05, cm, 10... Start Date: 04/28/22 Stop Date: 05/02/22 Status: Ordered Multivitamins with Folic Acid 1 mg oral capsule See Instructions, TAKE ONE DAILY BY MOUTH, # 100 capsule, 2 Refills, Maintenance, 03/05/22 15:39:00EDT, [facility]/pharmacy #[id number], Partial fill upon patient [...] series completed Confirmed Active 1Managed by PCP Vital Signs Most recent to oldest [Reference Range]: 1 2 3 Oxygen Saturation [94-100 %] 97 % (04/28/22 6:30 AM) 96 % (04/28/22 5:31 AM) 99 % (04/28/22 3:36 AM) Pulse Rate [55-90 bpm] 88 bpm (04/28/22 6:30 AM) 90 bpm (04/28/22 5:31 AM) 90 bpm (04/28/22 3:36 AM) Blood Pressure [90-138/55-84 mm Hg] 118/78mm Hg (04/28/22 6:30 AM) 113/70mm Hg (04/28/22 5:31 AM) 122/75mm Hg (04/28/22 3:36 AM) Respiratory Rate [16-30 br/min] 24 br/min (04/28/22 6:30 AM) 25 br/min (04/28/22 5:31 AM) 18 br/min (04/28/22 3:36 AM) Temperature [96.8-100.4 DegF] 98.7 DegF (04/28/22 1:09 AM) Mode of Delivery (Oxygen) Room air (04/28/22 6:30 AM) Room air (04/28/22 5:31 AM) Room air (04/28/22 3:36 AM) Blood pressure sites Arm, left (04/28/22 6:30 AM) Arm, left (04/28/22 5:31 AM) Arm, left (04/28/22 3:36 AM) Temperature Route Oral (04/28/22 1:09 AM) Social History Social History Type Response Smoking Status Never (less than 100 in lifetime) entered on: 08/18/20 Sex Note * Lorna Pleitez: PERFORM, SIGN, VERIFY Event Display: Patient Education Handout Authored Date: Patient Care team information Care Team Personnel Name: Johanna Zazueta MD Position: [facility] Outreach Member Role: PCP Address: Address: [address] [place] [id number] Name: Tyra Mota Position: [facility] ED RN W/OE and Tasks Member Role: Patient Care Provider Name: Vicente Rivera Position: [facility] ED TA [facility] Member Role: Monitoring Manager Name: Carlton Ahumada DO Position: [facility] Resident Member Role: Admitting Physician Address: Address: [address] [place] [address] Dept of Emergency [place], [place] [address] Name: Lorna Pleitez Position: [facility] Associate Professional Member Role: ED Physician Draw Furnace Tender Address: Address: [address] [place] [address] [place], [place] [address] Care Team Related Persons Name: DARCY PIKE Address: [address] Address: [address] [address] [place] Name: POLLY MEYER Address: [address] [address]
--- OUTSIDE RECORDS SUMMARY | 2022-12-29 16:27 | XMS_ITS | Continuity of Care Document ---
Author Name Unknown Organization [facility] Address [address] [place] [id number] Care Team Providers Care De Alcoholizer Name Role Phone Marbin GRIFFIN, Johanna Gomse Primary Care Physician [phone] Encounter [facility] [place](s): 10/05/20 - 11/04/[address] [id number] Allergies, Adverse Reactions, Alerts Substance Reaction [...] 3 Refills, Maintenance, 07/10/20 6:28:00 EST, Tablet, [facility]/pharmacy #[id number], Partial fill upon patient request if the prescription is for a schedule II opioid drug., 153.05, cm, 07/10/20 3:41:00 EST, [place]... Start Date: 07/10/20 Status: Ordered Colace sodium 100 mg oral capsule 100 mg, 1, capsule, By Mouth, 2 times a day, PRN, # 20 capsule, Refills 2, Tot. Refills 2, Maintenance, for constipation, 08/18/20 9:18:00 EST, Route to Pharmacy Electronically, [facility]/pharmacy #[id number], Partial fill upon patient request if the prescription... Start Date: 08/18/20 Status: Ordered Flovent HFA 110 mcg/inh inhalation aerosol 2 puffs, Inhalation, 2 times a day, # 12 Gm, 3 Refills, Maintenance, 04/14/20 14:38:00 EDT, Aerosol, [facility]/pharmacy #[id number], 153.05, cm, 04/14/20 13:55:00 EDT, Height Start Date: 04/14/20 Status: Ordered Multivitamins with Folic Acid 1 mg oral tablet 1 tablet, By Mouth, Daily, # 90 tablet, 3 Refills, Maintenance, 02/09/20 9:15:00 EDT, Tablet, [facility]/pharmacy #[id number], 1 tablet By Mouth Daily, 153.05, cm, 01/20/20 9:40:00 EDT, Height Start Date: 02/09/20 Status: Ordered Singulair 5 mg oral tablet, chewable 5 mg, 1, tablet, Chew, Daily in PM, # 90 tablet, Refills 3, Tot. Refills 3, Maintenance, 12/23/19 16:44:00 EDT, Route to Pharmacy Electronically, [facility]/pharmacy #[id number], 153.05, cm, 12/23/19 15:28:00 EDT, Height [...]
[2022-12-29 16:30] VITALS: BP 123/74; PULSE 102; RESP 18; O2SAT 94
[2022-12-29] MEDS: Albuterol Sulfate 7.5 MG, Albuterol Sulfate (0.083%) 2.5 MG 10 MG INHALE (16:37)
--- NOTE | 2022-12-29 16:37 | PC.NURSE ---
pt a&ox3, vss, nsr on the credit risk manager, inspiratory and expiratory wheezing upon auscultation, pt notes 4/10 chest pain while breathing and shortness of breath, RT bedside giving breathing treatment, urine samples sent to lab.
[2022-12-29 16:39] LABS: Alanine Aminotransferase 10 U/L (0-31); Albumin Level 4.6 g/dL (3.5-5.0); Alkaline Phosphatase 83 U/L (39-117); Anion Gap 16 (12-20); Aspartate Amino Transferase 14 U/L (5-31); Bilirubin Total 0.2 mg/dL (0.0-1.0); Blood Urea Nitrogen 3 mg/dL (9-16); Calcium 9.6 mg/dL (8.4-10.2); Carbon Dioxide 22 mmol/L (22-29); Chloride 106 mmol/L (96-108); Creatinine Clr Calc Pharmacy 113.3; Estimated Glomerular Filt Rate > 60; Glucose Random 111 mg/dL (60-115); Magnesium 1.7 mg/dL (1.6-2.6); Potassium 3.5 mmol/L (3.3-5.1); Sodium 140 mmol/L (135-145); Total Protein 7.6 g/dL (6.5-8.0)
[2022-12-29 17:07] LABS: COVID-19 Test Negative (Negative); IDNOW Serial# 08D9AD1C
[2022-12-29 17:08] LABS: HCG Quantitative < 2 mIU/mL
[2022-12-29] MEDS: predniSONE 20 MG TABLET 60 MG PO (17:21)
--- NOTE | 2022-12-29 17:22 | PC.NURSE ---
medications administered per provider order.
--- NOTE | 2022-12-29 17:27 | PC.NURSE ---
RT called for pt's next updraft.
[2022-12-29 18:00] VITALS: BP 123/69; PULSE 99; RESP 26; TEMP 36.9; O2SAT 100
--- NOTE | 2022-12-29 18:16 | PC.NURSE ---
pt has been medicated by RT
--- NOTE | 2022-12-29 18:40 | PC.NURSE ---
pt verbalizes pain decreased to a 4/10, inspiratory and expiratory wheezing audible upon auscultation despite updraft treatments, inspiratory wheezing less prominent than expiratory but adventitious sounds still noted.
[2022-12-29] MEDS: Albuterol/Iprat 2.5/0.5MG 3 ML AMPUL.NEB INHALE (19:16)
[2022-12-29] MEDS: Albuterol Sulfate (0.083%) 2.5 MG/3 ML VIAL.NEB 5 MG INHALE (19:17)
[2022-12-29 19:23] VITALS: BP 130/74; PULSE 98; RESP 15; O2SAT 94
[2022-12-29] MEDS: Ondansetron ODT 4 MG TAB.RAPDIS TRANSLINGU (19:23)
--- NOTE | 2022-12-29 19:24 | PC.NURSE ---
assumed care of patient at 1900 - pt actively throwing up/spitting up mucus. pt reports felling a lot better after the respiratory treatments states she got up to use the trash can and finally did not feel winded for once pt on ekg monitor tech respirations improved down to 14-18. pt still slightly tachycardic from updraft treatments, call verde within reach will ctm
--- NOTE | 2022-12-29 21:07 | PC.NURSE ---
pt ambulatory to and from bathroom with steady gait no issues
== END 2022-12-29 21:18 | disposition home or self-care (01) ==
PROVIDERS: Physician Assistant Medical; Emergency Provider Emergency Medicine
DX: J45.901 Unspecified asthma with (acute) exacerbation (principal); R06.02 Shortness of breath; R11.2 Nausea with vomiting, unspecified; R00.0 Tachycardia, unspecified; Z20.822 Contact with and (suspected) exposure to COVID-19; Z20.828 Contact with and (suspected) exposure to other viral communicable diseases; Z79.899 Other long term (current) drug therapy; Z87.891 Personal history of nicotine dependence
CPT/HCPCS: 36415; 71046; 80053; 83735; 84702; 85025; 87635; 93005; 94640; 96361; 96374; 99284; 99285

== ENCOUNTER → 2022-12-29 16:00 | Outpatient (BNV) | payer MEDICAID, SELFPAY | PROVIDERS: Emergency Provider Emergency Medicine; Visit Provider Internal Medicine Cardiovascular Disease | DX: R00.0 Tachycardia, unspecified (principal) | CPT/HCPCS: 93010 ==

== ENCOUNTER 2023-03-23 21:23 | Observation (INO) | payer MEDICAID, SELFPAY ==
[2023-03-23 21:41] VITALS: BP 131/94; PULSE 99; RESP 18; TEMP 37.2; O2SAT 93; BMI 28.0
[2023-03-24] VITALS (12 sets, daily range): BP systolic 107–140; BP diastolic 69–88; PULSE 73–108; RESP 16–22; TEMP 36.3–37.2; O2SAT 90–100
--- NOTE | 2023-03-24 00:23 | ED.ASTHMA ---
HPI - Asthma General Chief Complaint: Asthma Stated Complaint: Asthma Time Seen by Provider: 03/24/23 00:23 Source: patient Mode of arrival: ambulatory Limitations: no limitations History of Present Illness HPI Narrative: . History of asthma been sick for last few days got worse last 2 days with nasal congestion shortness of breath her kids were sick last week negative for COVID and flu no fever no chills does have cough with mucopurulent phlegm using nebulizing treatment at home without much relief Related Data Home Medications Medication Instructions Recorded Confirmed fluticasone propionate 44 2 puff PO BID 11/28/21 11/28/21 mcg/actuation HFA aerosol inhaler (Flovent HFA) Previous Rx's Medication Instructions Recorded albuterol sulfate 2.5 mg/3 mL 2.5 mg (3 mL) inhalation Q4-6H PRN 12/02/21 (0.083 %) solution for nebulization shortness of breath or wheezing #90 mL albuterol sulfate 90 mcg/actuation 2 puff inhalation Q4-6H PRN 12/02/21 aerosol inhaler (ProAir HFA) Wheezing #8.5 grams prednisone 10 mg tablet See Rx Instructions .Route 12/02/21 .COMPLEX #20 tabs albuterol sulfate 2.5 mg/3 mL 2.5 mg (3 mL) inhalation Q4-6H PRN 12/29/22 (0.083 %) solution for nebulization shortness of breath or wheezing #90 mL albuterol sulfate 90 mcg/actuation 2 puff inhalation Q6H PRN 12/29/22 aerosol inhaler shortness of breath or wheezing #8.5 grams prednisone 20 mg tablet 20 mg PO BID #10 tabs 12/29/22 albuterol sulfate 2.5 mg/3 mL 2.5 mg (3 mL) inhalation Q4-6H PRN 03/24/23 (0.083 %) solution for nebulization shortness of breath or wheezing #90 mL albuterol sulfate 90 mcg/actuation 2 puff inhalation Q4-6H PRN 03/24/23 aerosol inhaler (ProAir HFA) shortness of breath or wheezing #8.5 grams prednisone 20 mg tablet 40 mg (2 x 20 mg) PO DAILY #10 tabs 03/24/23 Allergies Allergy/AdvReac Type Severity Reaction Status Date / Time No Known Allergies Allergy Verified 03/23/23 21:41 Review of Systems Review of Systems: Yes all other systems are reviewed and are negative [facility] Past Medical History Medical History Multiple tracheobronchial mucus plugs Bronchitis Asthma exacerbation Collapse of right lung Asthma Surgical History [place] teeth removed No pertinent past surgical history Family History Family History Mother Hypertension Social History Social History Household Members: Family and Children Household Members Other:: Home with mother Housing: House Do you presently have visiting nurse or other home services: No Unable to assess alcohol history related to: Unknown Alcohol intake: current Alcohol intake frequency: a few times a month Alcohol type: hard liquor Patient Tobacco Use Status: Former Tobacco user Tobacco use type: Cigar e-Cigarette/Vaping Use: Never Used Second Hand Smoke Exposure: No Substance Use Type: Marijuana Advance Directives: No Advance Directives Information Provided: No service: No Current occupational status: employed Physical Exam Vital Signs: Vital Signs: Last Vital Signs Temp 98.2 F 03/24/23 00:21 Pulse 74 03/24/23 00:21 Resp 16 03/24/23 00:21 BP 119/88 03/24/23 00:21 Pulse Ox 98 03/24/23 00:21 O2 Del Method Room Air 03/24/23 00:21 BMI result Body Mass Index 28.0 Appearance: Alert. Oriented X3. No acute distress. ENT: Pharynx normal. Oral Mucosa moist Neck: Normal inspection. Neck supple. CVS: Normal heart rate and rhythm. Pulses normal. Respiratory: Mild respiratory distress. Equal air entry bilateral, bilateral wheezing no rales Abdomen: Soft and nontender. Bowel sounds are present, no mass palpable, no CVA tenderness Skin: Skin warm and dry. Normal skin color. Normal skin turgor. Extremities: No lower extremity edema. No calf tenderness Neuro: Oriented X 3. Medications Administered Discontinued Medications Generic Name Dose Route Start Last Admin Trade Name Freq PRN Reason Stop Dose Admin Albuterol Sulfate 2.5 mg/ 5 mg 03/24/23 00:51 03/24/23 00:53 Albuterol Sulfate 2.5 mg INHALE 03/24/23 00:52 5 mg ONCE ONE Administration Dexamethasone 10 mg 03/24/23 00:36 03/24/23 01:06 Dexamethasone 2 Mg Tablet PO 03/24/23 00:37 10 mg ONCE ONE Administration Medical Decision Making Medical Decision Making [facility] Narrative: Patient with acute asthma attack x-ray negative COVID negative will give her prednisone nebulizing treatment Differential Diagnosis Differential Diagnoses: The differential diagnosis associated with the presentation includes Acute bronchitis/asthma/pneumonia/atypical pneumonia Lab Data [facility] Lab Attestation statement: I reviewed the patient's lab results. 03/23/23 22:15 03/23/23 22:15 Labs: Lab Results 03/23/23 Range/Units 22:15 WBC 6.6 (4.8-10.8) X10*3/uL RBC 5.33 (4.20-5.50) X10*6/uL Hgb 14.6 D (12.0-16.0) g/dl Hct 43.3 (37.0-47.0) % MCV 81.2 (80.0-98.0) fL MCH 27.4 (27.0-33.0) pg MCHC 33.7 (31.0-35.0) g/dl RDW 14.6 (11.0-16.0) % Plt Count 339 (160-400) X10*3/uL MPV 8.4 L (9.4-12.3) fL Immature Gran % (Auto) 0.2 (0.0-0.4) % Neut % (Auto) 54.9 (45-73) % Lymph % (Auto) 22.1 (20-40) % [place] % (Auto) 10.2 (2-11) % Eos % (Auto) 12.3 H (0-4) % Baso % (Auto) 0.3 (0-2) % Lymph # (Auto) 1.5 (1.2-4.9) X10*3/uL [place] # (Auto) 0.7 (0.1-1.2) X10*3/uL Eos # (Auto) 0.8 H (0.0-0.4) X10*3/uL Baso # (Auto) 0.0 (0.0-0.2) X10*3/uL Abs Immat Gran (auto) 0.01 (0.00-0.03) X10*3/uL Absolute Neuts (auto) 3.6 (2.0-8.3) x10*3/uL Absolute Nucleated RBC 0.000 (0.0-0.012) X10*3/uL Nucleated RBC % (auto) 0.0 (0.0-0.2) /100WBC Sodium 139 (135-145) mmol/L Potassium 3.9 (3.3-5.1) mmol/L Chloride 105 (96-108) mmol/L Carbon Dioxide 21 L (22-29) mmol/L Anion Gap 17 (12-20) BUN 5 L (9-16) mg/dL Creatinine 0.67 (0.5-1.4) mg/dL Estim Creat Clear Calc 116.5 Estimated GFR > 60 Random Glucose 82 (60-115) mg/dL Calcium 9.6 (8.4-10.2) mg/dL Total Bilirubin 0.3 (0.0-1.0) mg/dL AST 18 (5-31) U/L ALT 12 (0-31) U/L Alkaline Phosphatase 88 (39-117) U/L Total Protein 8.1 H (6.5-8.0) g/dL Albumin 4.6 (3.5-5.0) g/dL COVID-19 (IMELDA) Negative (Negative) COVID-19 Clin Com See Note Influenza Type A (DAVY) Negative (Negative) Influenza Type B (DAVY) Negative (Negative) Influenza A & B Note See Note Discharge Plan Discharge Clinical Impression: Asthma with exacerbation Patient Disposition: Home, Self-Care Instructions: Asthma (ED) Additional Instructions: Continue to use a nebulizing treatment/inhaler every 4 hours as needed Prednisone as prescribed Follow with PCP if not better Prescriptions: New albuterol sulfate 2.5 mg /3 mL (0.083 %) solution for nebulization 2.5 mg inhalation Q4-6H PRN (Reason: shortness of breath or wheezing) Qty: 90 0RF prednisone 20 mg tablet 40 mg PO DAILY Qty: 10 0RF albuterol sulfate [ProAir HFA] 90 mcg/actuation HFA aerosol inhaler 2 puff inhalation Q4-6H PRN (Reason: shortness of breath or wheezing) Qty: 8.5 0RF No Action fluticasone propionate [Flovent HFA] 44 mcg/actuation HFA aerosol inhaler 2 puff PO BID albuterol sulfate 2.5 mg /3 mL (0.083 %) solution for nebulization 2.5 mg inhalation Q4-6H PRN (Reason: shortness of breath or wheezing) Qty: 90 0RF prednisone 10 mg tablet See Rx Instructions .ROUTE .COMPLEX Qty: 20 0RF Rx Instructions: 40 mg daily x 2 days, then 30 mg daily x 2 days, then 20 mg daily x 2 days, then 10 mg daily x 2 days [total 8 days] albuterol sulfate [ProAir HFA] 90 mcg/actuation HFA aerosol inhaler 2 puff inhalation Q4-6H PRN (Reason: Wheezing) Qty: 8.5 0RF albuterol sulfate 2.5 mg /3 mL (0.083 %) solution for nebulization 2.5 mg inhalation Q4-6H PRN (Reason: shortness of breath or wheezing) Qty: 90 0RF albuterol sulfate 90 mcg/actuation HFA aerosol inhaler 2 puff inhalation Q6H PRN (Reason: shortness of breath or wheezing) Qty: 8.5 0RF prednisone 20 mg tablet 20 mg PO BID Qty: 10 0RF
--- NOTE | 2023-03-24 02:26 | PC.NURSE ---
SHRINK PIT SUPERVISOR TO BEDSIDE FOR DC. PT FOUND TO BE 89% ON ROOM AIR WITH A GOOD WAVE FORM WITH THE PT REPORTING SHE JUST GOT BACK FROM WALKING TO/FROM THE BATHROOM. PT STATED I FEEL LIKE SHIT . RN MADE DR RODRIGUEZ AWARE OF THESE FINDING AND A WALKING/AMBULATION TRIAL IS TO BE COMPLETED SO WE CAN SEE IF SHE CONTINUES TO DESAT. MD TO BE NOTIFIED OF FINDINGS TO DETERMINE IF DC IS STILL APPROPRIATE.
--- NOTE | 2023-03-24 02:28 | MHC.EDTECH ---
PT VITALS TAKEN ,RSV/COVID SWAB COLLECTED AND SENT TO LAB ,PT COMFORTABLE ,NO APPARENT DISTRESS ,PT AT BEDSIDE .
--- NOTE | 2023-03-24 02:42 | PC.NURSE ---
SURVEYOR HELPER AWARE OF PT'S DESATTING AND NEED FOR REST DURING WALKING TRIAL. MD RODRIGUEZ AWARE OF PT DESATTING TO 87% ON ROOM AIR WHILE AMBULATING AROUND THE ED. PER MD HE WILL BE SPEAKING WITH THE HOSPITALIST FOR ADMISSION. PT TO BE PLACED ON SPECIAL EFFECTS SPECIALIST AND HAVE O2 CONTINUOUSLY MONITORED.
--- NOTE | 2023-03-24 02:45 | MHC.EDTECH ---
AMBULATION TRIAL WAS DONE ON PATIENT ON ROOM AIR ,PATIENT O2 SAT DROP FROM 95 % TO 88 % ,PATIENT BECAME VERY TIRED AND NEEDED TO STOP AND REST BEFORE CONTINUE ,RN KERA AWARE ,PATIENT WAS HOOKED UP TO PRODUCTION PATTERN MAKER ,PT HAVING A SANDWICH AND FERMÍN KHADIJAH FOR SNACK .
--- NOTE | 2023-03-24 02:57 | PM.IMHP ---
History of Present Illness Date of Service: 03/24/23 Chief Complaint: sob 22F PMH moderate persistent asthma (non compliant with inhaled steroid) presented with sob. patient reports 2 days of shortness of breath. She states that she has been having upper respiratory tract infection that she got from her children. Denies fever chills. Reports nasal congestion with cough. Significant shortness of breath to the point she decided come to the hospital as she was not getting relief from home albuterol. In ED was given steroids and nebulizer treatments. Initially was planned to be discharged. However, patient continued to feel poorly and desaturate to 87% on ambulation on room air. Chest x-ray unremarkable. Review of Systems Review of Systems: Yes all other systems are reviewed and are negative [facility] Medical History Multiple tracheobronchial mucus plugs Bronchitis Asthma exacerbation Collapse of right lung Asthma Family History Mother Hypertension Surgical History [place] teeth removed No pertinent past surgical history Social History Household Members: Family and Children Household Members Other:: Home with mother Housing: House Do you presently have visiting nurse or other home services: No Unable to assess alcohol history related to: Unknown Alcohol intake: current Alcohol intake frequency: holidays/special occasions only Alcohol type: hard liquor Patient Tobacco Use Status: Former Tobacco user Tobacco use type: Cigar Smoked in Last 30 Days: No e-Cigarette/Vaping Use: Never Used Second Hand Smoke Exposure: No Use of substances other than those prescribed or required for medical reasons: Yes Substance Use Type: Marijuana Substance Use Frequency: Occasionally Advance Directives: No Advance Directives Information Provided: No service: No Current occupational status: employed Meds Allergies Allergy/AdvReac Type Severity Reaction Status Date / Time No Known Allergies Allergy Verified 03/23/23 21:41 Home Medications Medication Instructions Recorded Confirmed Last Taken Type fluticasone propionate 44 2 puff PO BID 11/28/21 11/28/21 Unknown History mcg/actuation HFA aerosol inhaler (Flovent HFA) Physical Exam Vital Signs and Narrative: Vital Signs: Last Vital Signs Temp 97.8 F 03/24/23 02:26 Pulse 108 H 03/24/23 02:29 Resp 18 03/24/23 02:29 BP 119/80 03/24/23 02:29 Pulse Ox 92 03/24/23 02:29 O2 Del Method Room Air 03/24/23 02:29 BMI result Body Mass Index 28.0 Alert, oriented x3, no acute distress, bilateral wheezes Results Labs 03/23/23 22:15 03/23/23 22:15 Labs: Laboratory Results - last 24 hr 03/23/23 22:15 MCV 81.2 MCH 27.4 MCHC 33.7 RDW 14.6 Plt Count 339 MPV 8.4 L Immature Gran % (Auto) 0.2 Neut % (Auto) 54.9 Lymph % (Auto) 22.1 [place] % (Auto) 10.2 Eos % (Auto) 12.3 H Baso % (Auto) 0.3 Lymph # (Auto) 1.5 [place] # (Auto) 0.7 Eos # (Auto) 0.8 H Baso # (Auto) 0.0 Abs Immat Gran (auto) 0.01 Absolute Neuts (auto) 3.6 Absolute Nucleated RBC 0.000 Nucleated RBC % (auto) 0.0 Anion Gap 17 Estim Creat Clear Calc 116.5 Estimated GFR > 60 Random Glucose 82 Calcium 9.6 Total Bilirubin 0.3 AST 18 ALT 12 Alkaline Phosphatase 88 Total Protein 8.1 H Albumin 4.6 COVID-19 (IMELDA) Negative COVID-19 Clin Com See Note Influenza Type A (DAVY) Negative Influenza Type B (DAVY) Negative Influenza A & B Note See Note Imaging Radiologist's Impressions: Impressions Chest X-Ray 03/23/23 22:04 IMPRESSION: Unremarkable examination. Assessment and Plan (1) Asthma with exacerbation: Status: Acute Plan 22-year-old female with moderate persistent asthma presented with shortness of breath Moderate persistent asthma with acute decompensation and ambulatory acute hypoxia IV steroids, bronchodilators, decongestant Full code Time Spent With Patient Time: Total time managing care of this patient today ____ minutes. Quality Stroke Does the patient have a stroke diagnosis?: No VTE Prior VTE?: No VTE Risk Level:: Medical - low VTE Device Contraindication: Treatment Not Indicated VTE Drug Contraindication: Treatment Not Indicated
--- NOTE | 2023-03-24 07:33 | PC.NURSE ---
patient a&ox3, lungs diminished throughout, corrosion technician nsr/st, vitals currently stable, call verde within reach, will continue to monitor
--- NOTE | 2023-03-24 08:19 | PHA.MEDREC ---
Pharmacy Consult ? Medication Reconciliation Pharmacy has completed the medication reconciliation. Patient is on flovent 110 now, not 44 but admits she does not use it. Last taken about one month ago, but never consistent. Last fill was in [place]
--- NOTE | 2023-03-24 09:38 | PC.NURSE ---
pt ambulated with tech to bathroom, O2 sat was 93% upon ambulation, pt stated when she reached the bathroom she began coughing and felt sob however wasnt wheezing, she stated she also got very hot feeling, will notify provider and continue to monitor.
--- NOTE | 2023-03-24 10:15 | PC.NURSE ---
pt medicated per order
--- NOTE | 2023-03-24 11:33 | PC.NURSE ---
11 am cough med was held- dr. esparza was notified that the patients cough had stopped and this nurse was holding the 11 am dose.
--- NOTE | 2023-03-24 13:39 | PC.NURSE ---
this nurse called the floor to give report, nurse will call the ed back for report.
[2023-03-25] VITALS (7 sets, daily range): BP systolic 126–149; BP diastolic 72–91; PULSE 65–104; RESP 18; TEMP 36.1–36.8; O2SAT 92–99
[2023-03-25 07:34] LABS: Anion Gap 17 (12-20); Blood Urea Nitrogen 8 mg/dL (9-16); Calcium 10.1 mg/dL (8.4-10.2); Carbon Dioxide 22 mmol/L (22-29); Chloride 104 mmol/L (96-108); Estimated Glomerular Filt Rate > 60; Glucose Fasting 104 mg/dL (60-99); Potassium 4.1 mmol/L (3.3-5.1); Sodium 139 mmol/L (135-145)
--- NOTE | 2023-03-25 08:55 | MHC.CM.PN ---
RILEY 03/25/23 Patient is independent with all functional mobility. She lives with parents and her 2 kids. She declined the offer to document a HCP. PCP is Renita Tirado. DP home self care. She will arrange for transport home from a family member.
--- NOTE | 2023-03-25 13:49 | HO.PM.IMPN ---
Subjective Subjective Date of Service: 03/25/23 Interval History: shortness of breath with activity, no worsening cough, no allergy symptoms, no fevers, no chills tolerating diet, no nausea, no vomiting, no abdominal pain, no acute events overnight. Review of Systems all other system reviewed and negative Physical Exam Vital Signs: Vital Signs: Last Vital Signs Temp 97.5 F 03/25/23 07:43 Pulse 86 03/25/23 12:10 Resp 18 03/25/23 12:10 BP 128/72 03/25/23 07:43 Pulse Ox 92 03/25/23 07:43 O2 Del Method Room Air 03/25/23 07:43 BMI result Body Mass Index 28.0 Const: Other: General resting comfortably in no acute distress. Neck no JVD. CVS regular rate rhythm, Respiratory no respiratory distress, bilateral expiratory wheeze . Gastrointestinal abdomen soft, nontender, bowel sounds audible Extremities no edema. Neuro nonfocal Skin no rash psych appropriate affect Objective Data Active Medications Albuterol/Ipratropium (Albuterol/Iprat 2.5/0.5mg 3 Ml Ampul.Neb) 3 ml INHALE RQ4H WHILE AWAKE [facility] Last Admin: 03/25/23 12:10 Dose: 3 ml Documented By: ACE Hydrocodone Bit/Homatropine Methylb (Hydrocodone/Homat 5/1.5/5 Ml 5 Ml Syrup) 10 ml PO Q4H [facility] Last Admin: 03/25/23 11:08 Dose: 10 ml Documented By: MAURICE Methylprednisolone Sodium Succinate (Methylprednisolone Sod Succ 40 Mg/Ml Vial) 40 mg IVPUSH Q12H [facility] Last Admin: 03/25/23 06:01 Dose: 40 mg Documented By: DARLINRISM Sodium Chloride (0.9 % Sodium Chloride Flush 3 Ml Syringe) 3 ml IVFLUSH QSHIFT [facility] Last Admin: 03/25/23 07:21 Dose: 3 ml Documented By: MAURICE Labs 03/25/23 05:46 03/25/23 05:46 Labs: Laboratory Results - last 24 hr 03/25/23 05:46 MCV 83.1 MCH 27.1 MCHC 32.6 RDW 14.9 Plt Count 410 H MPV 9.2 L Absolute Nucleated RBC 0.000 Nucleated RBC % (auto) 0.0 Anion Gap 17 Estim Creat Clear Calc 120.0 Estimated GFR > 60 Fasting Glucose 104 H Calcium 10.1 Assessment and Plan (1) Asthma with exacerbation: Status: Acute Plan 22-year-old female with moderate persistent asthma presented with shortness of breath Moderate persistent asthma with acute decompensation and ambulatory acute hypoxia persistent shortness of breath with activity continue IV steroids, bronchodilators scheduled and add as needed, cough medications, decongestant chest x-ray and COVID negative will add steroid inhalers prior to discharge, home nebulizer machine not functioning, will discussed with respiratory therapist regarding replacement. DVT prophylaxis:? Early ambulation Full code admitted under observation Time Spent With Patient Time: Total time managing care of this patient today ____ minutes. Quality Stroke Does the patient have a stroke diagnosis?: No VTE Prior VTE?: No VTE Risk Level:: Medical - low VTE Device Contraindication: Treatment Not Indicated VTE Drug Contraindication: Treatment Not Indicated
[2023-03-26 06:43] VITALS: BP 157/78; PULSE 61; RESP 16; TEMP 36.6; O2SAT 96
[2023-03-26 08:04] VITALS: PULSE 90; RESP 16; O2SAT 96
--- NOTE | 2023-03-26 11:59 | PM.DS ---
DS: Providers Provider Date of Service: 03/26/23 Date of admission: 03/24/23 02:56 Primary care physician: RAMYA Mcnulty DS: Diagnosis Discharge Diagnosis (1) Asthma with exacerbation: Status: Acute DS: Summary Hospital Course Hospital Course: history of presenting illness: Date of Service: 03/24/23 Chief Complaint: sob 22F PMH moderate persistent asthma (non compliant with inhaled steroid) presented with sob. patient reports 2 days of shortness of breath. She states that she has been having upper respiratory tract infection that she got from her children. Denies fever chills. Reports nasal congestion with cough. Significant shortness of breath to the point she decided come to the hospital as she was not getting relief from home albuterol. In ED was given steroids and nebulizer treatments. Initially was planned to be discharged. However, patient continued to feel poorly and desaturate to 87% on ambulation on room air. Chest x-ray unremarkable. hospital course: 22-year-old female with moderate persistent asthma presented with shortness of breath admitted to [facility] with a diagnosis of Moderate persistent asthma with acute decompensation and ambulatory acute hypoxia treated with IV steroids, bronchodilators scheduled and as needed, cough medications, decongestant, chest x-ray and COVID negative, patient responded well to above treatment, currently with normal oxygenation ambulating with no shortness of breath or hypoxia therefore will discharge home on prednisone, nebulizer and updraft treatment recommend to continue home inhalers. Time Spent with Patient Time attestation: Total time managing care of this patient today ____ minutes. Discharge coordination time: Greater than 30 minutes Quality: Safe Use of Opioids Does Pt have an Active Cancer Diagnosis on the Problem List?: No Quality: Stroke Does the patient have a stroke diagnosis?: No Physical Exam Vital Signs: Vital Signs: Last Vital Signs Temp 98 F 03/26/23 06:43 Pulse 90 03/26/23 08:04 Resp 16 03/26/23 08:04 BP 157/78 H 03/26/23 06:43 Pulse Ox 96 03/26/23 06:43 O2 Del Method Room Air 03/26/23 06:43 BMI result Body Mass Index 28.0 Const: Other: General resting comfortably in no acute distress. Neck no JVD. CVS regular rate rhythm, Respiratory no respiratory distress, few expiratory wheeze otherwise clear Gastrointestinal abdomen soft, nontender, bowel sounds audible Extremities no edema. Neuro non focal Skin no rash psych appropriate affect DS: Data Data Completed and Pending Completed studies during hospitalization [Text1]: Procedures Extirpation of Matter from Right Lower Lobe Bronchus, Via Natural or Artificial Opening Endoscopic (11/28/21) Extirpation of Matter from Right Middle Lobe Bronchus, Via Natural or Artificial Opening Endoscopic (11/28/21) Extirpation of Matter from Right Upper Lobe Bronchus, Via Natural or Artificial Opening Endoscopic (11/28/21) Extraction of Right Lung, Via Natural or Artificial Opening Endoscopic, Diagnostic (11/28/21) Introduction of Remdesivir Anti-infective into Peripheral Vein, Percutaneous Approach, [employer] (06/05/21) Discharge Plan Discharge Anticipated Discharge Date/Time: 03/26/23 11:56 Patient Disposition: Home, Self-Care Referrals: Renita Cotton FNP [Primary Care Provider] - 1 Week Discharge Medications: New (DME) compressor, for nebulizer Device See Rx Instructions .Route Qty: 1 0RF Rx Instructions: As directed prednisone 20 mg tablet 20 mg PO DAILY Qty: 5 0RF Rx Instructions: take with food Continued fluticasone propionate [Flovent HFA] 110 mcg/actuation HFA aerosol inhaler 2 puff INHALATION BID albuterol sulfate 2.5 mg /3 mL (0.083 %) solution for nebulization 2.5 mg inhalation Q4-6H PRN (Reason: shortness of breath or wheezing) Qty: 90 0RF albuterol sulfate [ProAir HFA] 90 mcg/actuation HFA aerosol inhaler 2 puff inhalation Q4-6H PRN (Reason: Wheezing) Qty: 8.5 0RF Discharge Orders: Discharge Order (Routine); Ordered 03/26/23 Ordered By: Charles oNrth Diet: Advance to usual diet Activity on Discharge: As tolerated Stand Alone Forms: Patient Portal Discharge page Care Plan Goals: continue prednisone taper Health Concerns: asthma Plan of Treatment: follow-up with PCP call for appointment Assessment: as above Patient Instructions: Asthma (ED)
[2023-03-26 12:20] VITALS: PULSE 105; RESP 16; O2SAT 96
--- NOTE | 2023-03-26 12:20 | MHC.CM.PN ---
RILEY 03/25/23 PEARL ASTHMA DC TO HOME SELF CARE PT WILL ARRANGE FOR TRANSPORT HOME.
== END 2023-03-26 14:01 | disposition home or self-care (01) ==
LOC: HO.ED 03-24 01:33 → HO.EDOVER 03-24 03:46 → HO.S3 03-24 08:41 → HO.EDOVER 03-24 08:53 → HO.S3 03-24 13:20
PROVIDERS: Admitting Provider Internal Medicine; Emergency Provider Internal Medicine; PCP Registered Nurse; Visit Provider Hospitalist
DX: J45.41 Moderate persistent asthma with (acute) exacerbation (principal); R09.02 Hypoxemia; R06.02 Shortness of breath; Z11.52 Encounter for screening for COVID-19; Z79.899 Other long term (current) drug therapy; Z91.148 Patient's other noncompliance with medication regimen for other reason
CPT/HCPCS: 36415; 71045; 80048; 80053; 85025; 85027; 87502; 87635; 96374; 96376; 99221; 99285; J2920; J8540

== ENCOUNTER → 2023-03-23 23:50 | Outpatient (BNV) | payer MEDICAID, SELFPAY | PROVIDERS: Emergency Provider Internal Medicine; Visit Provider Internal Medicine | DX: J45.901 Unspecified asthma with (acute) exacerbation (principal) | CPT/HCPCS: 99222; 99233; 99239 ==

== ENCOUNTER 2024-05-24 19:21 | Emergency (ER) | payer MEDICAID, SELFPAY ==
--- NOTE | ~2024-05-24 | XR_ITS ---
EXAMINATION: XR CHEST CLINICAL INFORMATION: Coughing. Pneumonia COMPARISON: Chest x-ray on 03/23/2023 TECHNIQUE: Frontal view of the chest was obtained. FINDINGS: The cardiac silhouette is normal. There is mild diffuse bronchial wall thickening. There are no areas of consolidation. There are no pleural effusions or pneumothoraces. The bones and soft tissues are unremarkable for the patient's age. XR/XR chest 1V IMPRESSION: Bronchial wall thickening may be infectious and/or inflammatory in etiology. Electronically signed by: Shea Mccollum MD 05/24/2024 09:36 PM EST
[2024-05-24 19:57] VITALS: BP 127/82; PULSE 111; RESP 16; TEMP 37; O2SAT 95; BMI 24.1
--- NOTE | 2024-05-24 20:05 | ED_ITS ---
HPI - General Adult General Chief complaint: Upper Respiratory Symptoms Stated complaint: flu like symptoms? Time Seen by Provider: 05/24/24 22:35 Source: patient and old records reviewed Mode of arrival: EMS Limitations: no limitations History of Present Illness ED Provider: CAMPOS FRASER narrative: 23 yo female with PMH of asthma and ADHD who has been sick for 3 days with cough, then n/v/d as well after eating she denies food exposures, travel, abx use. She was using nebs but ran out still has inhaler. She takes depo for her BC. She denies anyone in the house having diarrhea but the kids have URI. complaint: n/v/d, URI Onset (ago): day(s) (3) Radiation: non-radiation Severity: moderate Relieving factors: none Exacerbating factors: eating Associated symptoms: cough, loss of appetite, malaise and nausea/vomiting Treatments prior to arrival: none Related Data Home Medications ?Medication ?Instructions ?Recorded ?Confirmed fluticasone propionate 110 2 puff inhalation BID 03/24/23 03/24/23 mcg/actuation HFA aerosol inhaler (Flovent HFA) Previous Rx's ?Medication ?Instructions ?Recorded albuterol sulfate 2.5 mg/3 mL 2.5 mg (3 mL) inhalation Q4-6H PRN 03/26/23 (0.083 %) solution for nebulization shortness of breath or wheezing #90 mL albuterol sulfate 90 mcg/actuation 2 puff inhalation Q4-6H PRN 03/26/23 aerosol inhaler (ProAir HFA) Wheezing #8.5 grams compressor, for nebulizer #1 ea 03/26/23 prednisone 20 mg tablet 20 mg PO DAILY #5 tabs 03/26/23 albuterol sulfate 2.5 mg/3 mL 2.5 mg (3 mL) inhalation Q4-6H PRN 05/25/24 (0.083 %) solution for nebulization bronchospasm #75 mL ondansetron 4 mg disintegrating 4 mg PO Q8H PRN nausea and 05/25/24 tablet vomiting #20 tabs prednisone 20 mg tablet 40 mg (2 x 20 mg) PO DAILY 5 days 05/25/24 #10 tabs Allergies Allergy/AdvReac Type Severity Reaction Status Date / Time No Known Allergies Allergy Verified 05/24/24 20:04 Review of Systems 2 Review of Systems: Constitutional : No Fever, No Chills ENT/Mouth : No Hoarseness, No sore throat, No Rhinorrhea Eyes: No Redness, No Discharge, No Vision Changes Cardiovascular : No Chest Pain, positive SOB Respiratory : positive Cough, No Sputum, positive Wheezing, Gastrointestinal : pos Nausea, pos Vomiting, pos Diarrhea, No abdominal Pain Genitourinary : No Dysuria, No Hematuria Musculoskeletal : No joint pain, No Myalgias Skin : No rash Neuro : No Weakness, No Numbness, No Headache Psych : No anxiety, depression Heme/Lymph: No Bruising, No Bleeding Endocrine : No Polyuria, No Polydipsia All other systems reviewed and are negative PMFSH Past Medical History Attestation statement: The following information was validated with the patient. Source: old records reviewed Medical History Multiple tracheobronchial mucus plugs Bronchitis Asthma exacerbation Collapse of right lung Asthma Surgical History [place] teeth removed No pertinent past surgical history Family History Family History Mother Hypertension Social History Social History Household Members: Family and Children Household Members Other:: Home with mother Housing: House Do you presently have visiting nurse or other home services: No Unable to assess alcohol history related to: Unknown Alcohol intake: current Alcohol intake frequency: holidays/special occasions only Alcohol type: hard liquor Patient Tobacco Use Status: Never used Tobacco Tobacco use type: Cigar Smoked in Last 30 Days: No e-Cigarette/Vaping Use: Never Used Second Hand Smoke Exposure: No Use of substances other than those prescribed or required for medical reasons: No Substance Use Type: Marijuana Substance Use Frequency: Socially Advance Directives: No Advance Directives Information Provided: No Do you have a plan to hurt others: No Plan Patient : No service: No Current occupational status: employed Physical Exam ED Vital Signs: Vital Signs - 24 hr 05/24/24 19:57 05/24/24 22:38 05/25/24 01:03 Temperature 98.6 F 98.7 F Pulse Rate 111 H 97 87 Respiratory Rate 16 16 18 Blood Pressure 127/82 128/82 Pulse Oximetry 95 96 Oxygen Delivery Method Room Air Room Air 05/25/24 04:07 05/25/24 04:38 05/25/24 04:50 Temperature 99.8 F 98.0 F Pulse Rate 108 H 98 Respiratory Rate 20 18 Blood Pressure 124/72 119/68 Pulse Oximetry 94 96 95 Oxygen Delivery Method Oxymask Room Air Room Air BMI result Body Mass Index 24.1 Appearance: Alert. Oriented X3. No acute distress. Eyes: Pupils equal, round and reactive to light. ENT: Pharynx normal. Neck: Normal inspection. Neck supple. CVS: Normal heart rate and rhythm. Pulses normal. Respiratory: No respiratory distress. Breath sounds mild rhonchi. Abdomen: Soft and nontender. Skin: Skin warm and dry. Normal skin color. Normal skin turgor. Extremities: No lower extremity edema. No calf ttp Neuro: Oriented X 3. No motor deficit. No sensory deficit. Course Course Course Narrative: RME: 23 year female presents to ED for URI symptoms. Patient states coughing green phlegm and diarrhea. Chest x-ray SARs strep ordered. Patient states her children were sick 1st now she is sick Medications Administered Discontinued Medications Generic Name Dose Route Start Last Admin Trade Name Freq PRN Reason Stop Dose Admin Albuterol Sulfate 7.5 mg/ 10 mg 05/25/24 00:41 05/25/24 01:03 Albuterol Sulfate 2.5 mg INHALE 05/25/24 00:42 10 mg ONCE ONE Administration Albuterol Sulfate 7.5 mg/ 10 mg 05/25/24 03:39 05/25/24 03:43 Albuterol Sulfate 2.5 mg INHALE 05/25/24 03:40 10 mg ONCE ONE Administration Diphenoxylate HCl/Atropine 1 tab 05/24/24 22:43 05/25/24 00:45 Diphenoxylate/Atrop 2.5/0.025 Tablet PO 05/24/24 22:44 1 tab ONCE ONE Administration Lactated Ringer's 1,000 mls @ 999 mls/hr 05/24/24 22:43 05/25/24 04:33 Lr IV 05/24/24 23:43 Infused .Q1H1M ONE Infusion Methylprednisolone Sodium Succinate 60 mg 05/24/24 22:43 05/25/24 00:45 Methylprednisolone Sod Succ 125 Mg/2 Ml Vial IVPUSH 05/24/24 22:44 60 mg ONCE ONE Administration Ondansetron HCl 4 mg 05/24/24 22:43 05/25/24 00:45 Ondansetron Hcl 4 Mg/2 Ml Vial IVPUSH 05/24/24 22:44 4 mg ONCE ONE Administration Potassium Chloride 40 meq 05/25/24 01:23 05/25/24 02:03 Potassium Chloride Er 20 Meq Tab.Er.Prt PO 05/25/24 01:24 40 meq ONCE ONE Administration Medical Decision Making Medical Decision Making MDM Narrative: 23 yo female with PMH of asthma and ADHD here with URI symptoms and GI symptoms x 3 days. She denies travel, sick contacts other than children with URI, she is not toxic and has benign abdomen at this time given history will obtain basic labs, hydrate, offer zofran and lomotil. Will start on IV solumedrol. Suspect bronchitis, URI, viral syndrome. Differential Diagnosis Differential Diagnoses: The differential diagnosis associated with the presentation includes viral syndrome, URI, bronchitis Admission/Observation Consideration of admission/observation: Escalation of care including admission/observation considered no hypoxia, no diarrhea, no vomiting, able to tolerate PO stable for DC Lab Data [facility] Lab Attestation statement: I reviewed the patient's lab results. 05/25/24 00:36 05/25/24 00:36 Labs: Lab Results 05/24/24 05/25/24 Range/Units 20:03 00:36 WBC 13.1 H (4.8-10.8) X10*3/uL RBC 4.64 (4.20-5.50) X10*6/uL Hgb 14.3 (12.0-16.0) g/dl Hct 39.6 (37.0-47.0) % MCV 85.3 (80.0-98.0) fL MCH 30.8 (27.0-33.0) pg MCHC 36.1 H (31.0-35.0) g/dl RDW 11.9 (11.0-16.0) % Plt Count 256 D (160-400) X10*3/uL MPV 8.7 L (9.4-12.3) fL Immature Gran % (Auto) 1.1 H (0.0-0.4) % Neut % (Auto) 72.7 (45-73) % Lymph % (Auto) 16.1 L (20-40) % [place] % (Auto) 9.7 (2-11) % Eos % (Auto) 0.2 (0-4) % Baso % (Auto) 0.2 (0-2) % Lymph # (Auto) 2.1 (1.2-4.9) X10*3/uL [place] # (Auto) 1.3 H (0.1-1.2) X10*3/uL Eos # (Auto) 0.0 (0.0-0.4) X10*3/uL Baso # (Auto) 0.0 (0.0-0.2) X10*3/uL Abs Immat Gran (auto) 0.15 H (0.00-0.03) X10*3/uL Absolute Neuts (auto) 9.5 H (2.0-8.3) x10*3/uL Absolute Nucleated RBC 0.000 (0.0-0.012) X10*3/uL Nucleated RBC % (auto) 0.0 (0.0-0.2) /100WBC Sodium 137 (135-145) mmol/L Potassium 3.0 L (3.3-5.1) mmol/L Chloride 104 (96-108) mmol/L Carbon Dioxide 23 (22-29) mmol/L Anion Gap 13 (12-20) BUN 3 L (9-16) mg/dL Creatinine 0.67 (0.5-1.4) mg/dL Estim Creat Clear Calc 107.8 Estimated GFR > 60 Random Glucose 87 (60-115) mg/dL Calcium 8.8 D (8.4-10.2) mg/dL Total Bilirubin 0.6 (0.0-1.0) mg/dL Direct Bilirubin 0.3 (0.0-0.5) mg/dL AST 18 (5-31) U/L ALT 12 (0-31) U/L Alkaline Phosphatase 63 (39-117) U/L Total Protein 7.3 (6.5-8.0) g/dL Albumin 4.3 (3.5-5.0) g/dL Lipase 9 (8-78) U/L Beta HCG, Quant < 2 mIU/mL Influenza Type A (PCR) NEGATIVE (Negative) Influenza Type B (PCR) NEGATIVE (Negative) RSV RNA Qual (PCR) NEGATIVE (Negative) SARS-CoV-2 RNA (RT-PCR) NEGATIVE (Negative) S. pyogenes GrpA DAVY Negative (Negative) Independent Interpretation I performed an independent interpretation of an: Plain X-Ray (normal ) Radiology Impression Discussion of test interpretation with radiology: I have reviewed the radiologist's reading. External Record Review External record reviewed: Outpatient record Prescription Management I considered prescription management with: Antibiotic and Other Discharge Plan Discharge Clinical Impression: Acute viral syndrome, Acute viral bronchitis, Acute hypokalemia Diarrhea Qualifiers: Diarrhea type: unspecified type Qualified Code(s): R19.7 - Diarrhea, unspecified Patient Disposition: Home, Self-Care Instructions: Hypokalemia (ED), Acute Bronchitis (ED), Acute Diarrhea (ED), Viral Syndrome (ED) Additional Instructions: other than potassium (likely from nebs) no sig findings on CT scan please eat a bland diet for 48 hours and stay hydrated, return for any worsening symptoms such as fever, bloody stools, severe pain, unable to eat or drink or any other concerns. you can take immodium over the counter according to the package instructions to help with diarrhea stool sample sent off takes about a day for results we will call you with any positive results Prescriptions: New albuterol sulfate 2.5 mg /3 mL (0.083 %) solution for nebulization 2.5 mg inhalation Q4-6H PRN (Reason: bronchospasm) Qty: 75 0RF prednisone 20 mg tablet 40 mg PO DAILY 5 Days Qty: 10 0RF ondansetron 4 mg tablet,disintegrating 4 mg PO Q8H PRN (Reason: nausea and vomiting) Qty: 20 0RF No Action fluticasone propionate [Flovent HFA] 110 mcg/actuation HFA aerosol inhaler 2 puff INHALATION BID prednisone 20 mg tablet 20 mg PO DAILY Qty: 5 0RF Rx Instructions: take with food (DME) compressor, for nebulizer Device See Rx Instructions .Route Qty: 1 0RF Rx Instructions: As directed albuterol sulfate 2.5 mg /3 mL (0.083 %) solution for nebulization 2.5 mg inhalation Q4-6H PRN (Reason: shortness of breath or wheezing) Qty: 90 0RF albuterol sulfate [ProAir HFA] 90 mcg/actuation HFA aerosol inhaler 2 puff inhalation Q4-6H PRN (Reason: Wheezing) Qty: 8.5 0RF Stand Alone Forms: Work/School Release Interventions: ED Discharge Assessment Last Done: 05/25/24 04:50 Discharge Date/Time: 05/25/24 05:18 Print Language: [place] Citizen
[2024-05-24 20:19] LABS: IDNOW Serial# 08D9AD1C; Strep A Nucleic Acid Negative (Negative)
[2024-05-24 20:44] LABS: Influenza A PCR NEGATIVE (Negative); Influenza B PCR NEGATIVE (Negative); Resp Syncy Virus RNA Qual PCR NEGATIVE (Negative); SARS COV2 PCR INHOUSE NEGATIVE (Negative)
[2024-05-24 22:38] VITALS: BP 128/82; PULSE 97; RESP 16; TEMP 37.1; O2SAT 96
[2024-05-25 00:39] LABS: MANUAL DIFF FLAG NO
[2024-05-25 00:42] LABS: Basophils Percent Auto 0.2 % (0-2); Eosinophils Percent Auto 0.2 % (0-4); Hematocrit 39.6 % (37.0-47.0); Hemoglobin 14.3 g/dl (12.0-16.0); Imm Gran Abs Auto 0.15 X10*3/uL (0.00-0.03); Imm Gran Pct Auto 1.1 % (0.0-0.4); Lymphocytes Absolute Auto 2.1 X10*3/uL (1.2-4.9); Lymphocytes Percent Auto 16.1 % (20-40); Mean Corpuscular HGB Conc 36.1 g/dl (31.0-35.0); Mean Corpuscular Hemoglobin 30.8 pg (27.0-33.0); Mean Corpuscular Volume 85.3 fL (80.0-98.0); Mean Platelet Volume 8.7 fL (9.4-12.3); Monocytes Absolute Auto 1.3 X10*3/uL (0.1-1.2); Monocytes Percent Auto 9.7 % (2-11); Neutrophils Absolute Auto 9.5 x10*3/uL (2.0-8.3); Neutrophils Percent Auto 72.7 % (45-73); Platelet Count 256 X10*3/uL (160-400); Red Blood Count 4.64 X10*6/uL (4.20-5.50); Red Cell Distribution Width 11.9 % (11.0-16.0); White Blood Count 13.1 X10*3/uL (4.8-10.8)
[2024-05-25] MEDS: ondansetron HCL 4 MG/2 ML VIAL IVPUSH (00:45)
[2024-05-25] MEDS: methylPREDNISolone Sod Succ 125 MG/2 ML VIAL 60 MG IVPUSH (00:45)
[2024-05-25] MEDS: Diphenoxylate/Atrop 2.5/0.025 TABLET 1 TAB PO (00:45)
[2024-05-25] MEDS: Lactated Ringers 1,000 ML 999 ML IV (00:47)
[2024-05-25 01:03] VITALS: PULSE 87; RESP 18; O2SAT 97
[2024-05-25] MEDS: Albuterol Sulfate 7.5 MG, Albuterol Sulfate (0.083%) 2.5 MG 10 MG INHALE ×2 (01:03→03:43)
[2024-05-25 01:09] LABS: Alanine Aminotransferase 12 U/L (0-31); Albumin Level 4.3 g/dL (3.5-5.0); Alkaline Phosphatase 63 U/L (39-117); Anion Gap 13 (12-20); Aspartate Amino Transferase 18 U/L (5-31); Bilirubin Direct 0.3 mg/dL (0.0-0.5); Bilirubin Total 0.6 mg/dL (0.0-1.0); Blood Urea Nitrogen 3 mg/dL (9-16); Calcium 8.8 mg/dL (8.4-10.2); Carbon Dioxide 23 mmol/L (22-29); Chloride 104 mmol/L (96-108); Creatinine Clr Calc Pharmacy 107.8; Estimated Glomerular Filt Rate > 60; Glucose Random 87 mg/dL (60-115); Lipase 9 U/L (8-78); Sodium 137 mmol/L (135-145); Total Protein 7.3 g/dL (6.5-8.0)
[2024-05-25 01:15] LABS: HCG Quantitative < 2 mIU/mL
[2024-05-25] MEDS: Potassium Chloride ER 20 MEQ TAB.ER.PRT 40 MEQ PO (02:03)
[2024-05-25 04:07] VITALS: BP 124/72; PULSE 108; RESP 20; TEMP 37.7; O2SAT 94
[2024-05-25 04:38] VITALS: O2SAT 96
[2024-05-25 04:50] VITALS: BP 119/68; PULSE 98; RESP 18; TEMP 36.7; O2SAT 95
== END 2024-05-25 05:18 | disposition home or self-care (01) ==
PROVIDERS: Physician Assistant; Emergency Provider Emergency Medicine; PCP Registered Nurse
DX: B34.9 Viral infection, unspecified (principal); J20.8 Acute bronchitis due to other specified organisms; E87.6 Hypokalemia; R05.9 Cough, unspecified; R11.2 Nausea with vomiting, unspecified; J06.9 Acute upper respiratory infection, unspecified; Z03.818 Encounter for observation for suspected exposure to other biological agents ruled out; Z79.899 Other long term (current) drug therapy
CPT/HCPCS: 0241U; 36415; 71045; 80048; 80076; 83690; 84702; 85025; 87651; 94640; 96361; 96374; 96375; 99285; J2405; J2919; J7120